=== PATIENT | female | born 1965 | race Caucasian/White ===

== ENCOUNTER 2021-06-21 08:17 | Outpatient (REF) | payer BC, SELFPAY ==
--- NOTE | ~2021-06-21 | XR_ITS ---
EXAMINATION: BILATERAL KNEE X-RAY CLINICAL INFORMATION: Knee pain COMPARISON: None TECHNIQUE: Standing AP, lateral and sunrise views of both knees FINDINGS: Right: Bone alignment is normal. No fracture or dislocation is seen. There is joint space narrowing at the medial femoral tibial joint. Joint spaces are otherwise normal. There is a small to moderate joint effusion. Left knee: Bone alignment is normal. No fracture or dislocation is seen. There is arthritis at the medial femoral tibial and patellofemoral joints with joint space narrowing and osteophyte formation. There is a small to moderate joint effusion. XR/XR knee RT 2V IMPRESSION: Bilateral arthritis and joint effusion.
--- NOTE | ~2021-06-21 | XR_ITS ---
EXAMINATION: BILATERAL KNEE X-RAY CLINICAL INFORMATION: Knee pain COMPARISON: None TECHNIQUE: Standing AP, lateral and sunrise views of both knees FINDINGS: Right: Bone alignment is normal. No fracture or dislocation is seen. There is joint space narrowing at the medial femoral tibial joint. Joint spaces are otherwise normal. There is a small to moderate joint effusion. Left knee: Bone alignment is normal. No fracture or dislocation is seen. There is arthritis at the medial femoral tibial and patellofemoral joints with joint space narrowing and osteophyte formation. There is a small to moderate joint effusion. XR/XR knee LT 2V IMPRESSION: Bilateral arthritis and joint effusion.
--- NOTE | ~2021-06-21 | XR_ITS ---
EXAMINATION: BILATERAL KNEE X-RAY CLINICAL INFORMATION: Knee pain COMPARISON: None TECHNIQUE: Standing AP, lateral and sunrise views of both knees FINDINGS: Right: Bone alignment is normal. No fracture or dislocation is seen. There is joint space narrowing at the medial femoral tibial joint. Joint spaces are otherwise normal. There is a small to moderate joint effusion. Left knee: Bone alignment is normal. No fracture or dislocation is seen. There is arthritis at the medial femoral tibial and patellofemoral joints with joint space narrowing and osteophyte formation. There is a small to moderate joint effusion. XR/XR knee standing BI IMPRESSION: Bilateral arthritis and joint effusion.
== END 2021-06-21 08:18 | disposition home or self-care (01) ==
LOC: HO.HOSX 08:17
PROVIDERS: Visit Provider Orthopaedic Surgery
DX: M17.0 Bilateral primary osteoarthritis of knee (principal)
CPT/HCPCS: 73560; 73565

== ENCOUNTER → 2021-07-09 08:05 | Outpatient (BNVA) | payer BC, SELFPAY | PROVIDERS: Visit Provider Orthopaedic Surgery | DX: Z01.812 Encounter for preprocedural laboratory examination (principal); Z01.810 Encounter for preprocedural cardiovascular examination ==

== ENCOUNTER → 2021-12-06 11:11 | Outpatient (BNVA) | payer BC, SELFPAY | PROVIDERS: PCP Internal Medicine; Visit Provider Physician Assistant | DX: Z01.818 Encounter for other preprocedural examination (principal); M17.11 Unilateral primary osteoarthritis, right knee | CPT/HCPCS: 99212 ==

== ENCOUNTER 2021-12-11 08:58 | Inpatient (IN) | payer BC, SELFPAY ==
[2021-11-27 12:19] VITALS: BP 131/83; PULSE 60; RESP 16; O2SAT 99; BMI 40.7
[2021-11-27 15:44] LABS: MRSA Nasal PCR NEGATIVE (Negative); SA Nasal PCR NEGATIVE (Negative)
--- NOTE | 2021-12-10 09:04 | HO.ANESPROP2 ---
Documented by User: Maryan Choi NP 12/10/21 09:20 HPI - Anesthesia Eval Consult details Narrative: 56yo F for Right Knee Replacement Total PCP cleared [facility] Active Problems Active Problems: All Active Problems (Updated 11/27/21 @ 14:06 by Fior Birch RN) Osteoarthritis of right knee (Acute) Past Medical History Medical History Anxiety Depression Environmental allergies Arron's disease History of blood transfusion Hypertension Insomnia CASANDRA on CPAP Paradoxical vocal cord motion Personal history of COVID-19 Surgical History Surgical History H/O partial thyroidectomy H/O Spinal surgery History of back surgery History of bilateral cataract extraction History of History of cholecystectomy History of hysterectomy, supracervical History of laryngoscopy History of sleeve gastrectomy Hx of colonoscopy Hx of tonsillectomy Social History Social History Are you a primary career services coordinator to a significant other at home: No Do you presently have visiting nurse or other home services: No Patient Tobacco Use Status: Never used Tobacco Current occupational status: employed Current occupation: disability claims Meds Allergies Allergy/AdvReac Type Severity Reaction Status Date / Time cephalexin [From Keflex] Allergy Intermediate Gastrointestinal Verified 12/06/21 11:27 Upset [place] And Derivatives Allergy Intermediate Shortness Verified 12/06/21 11:27 of Breath nut - unspecified Allergy Intermediate Swelling Verified 12/06/21 11:27 oxycodone [From Percocet] Allergy Intermediate Nausea and Verified 12/06/21 11:27 Vomiting Home Medications Medication Instructions Recorded Confirmed Last Taken Type amlodipine 5 mg tablet 1 tab PO DAILY 11/27/21 11/27/21 12/11/21 History biotin 5,000 mcg sublingual tablet 5,000 mcg SUBLINGUAL DAILY 11/27/21 11/27/21 Unknown History cetirizine 10 mg capsule (Zyrtec) 10 mg PO DAILY 11/27/21 11/27/21 Unknown History estradiol 1 mg tablet 1 tab PO DAILY 11/27/21 11/27/21 Unknown History hydrochlorothiazide 12.5 mg capsule 1 cap PO DAILY 11/27/21 11/27/21 Unknown History levothyroxine 112 mcg tablet 1 tab PO DAILY 11/27/21 11/27/21 Unknown History lisinopril 20 mg tablet 1 tab PO BID 11/27/21 11/27/21 Unknown History lorazepam 0.5 mg tablet 1 tab PO DAILY PRN 11/27/21 11/27/21 Unknown History melatonin 10 mg sublingual tablet 15 mg PO BEDTIME 11/27/21 11/27/21 Unknown History methylphenidate HCl 18 mg 18 mg PO DAILY 11/27/21 11/27/21 Unknown History tablet,extended release 24 hr triamcinolone acetonide 55 mcg 1 spray INTRANASAL DAILY 11/27/21 11/27/21 Unknown History nasal spray aerosol (Nasacort) Exam Exam Date and Time: December 10, 2021 0904 Height,Weight and Vital Signs: Height 5 ft Weight 94.665 kg Last Vital Signs Pulse 60 11/27/21 12:19 Resp 16 11/27/21 12:19 BP 131/83 11/27/21 12:19 Pulse Ox 99 11/27/21 12:19 Pertinent Lab Results Pertinent Lab Results: Laboratory Tests 11/27/21 11/27/21 12:30 13:20 Nasal Screen MRSA (PCR) NEGATIVE Nasal S. aureus Screen NEGATIVE Nasal MRSA/S.aureus Interp SEE NOTE Blood Type O Positive Antibody Screen POSITIVE Antibody Identification Anti-Fya Antigen Identification Fya Antigen - NEGATIVE Crossmatch (AHG) See Detail CBC and BMP done at outside facility 11/16/21 = WNL Narrative Narrative: EKG 11/2021 NSR@65 Assessment and Plan Assessment Anesthesia Assessment: Chart Reviewed Documented by User: Lowell Diallo MD 12/11/21 12:38 [facility] Past Medical History Medical History Anxiety Depression Environmental allergies Arron's disease History of blood transfusion Hypertension Insomnia CASANDRA on CPAP Paradoxical vocal cord motion Personal history of COVID-19 Family History Family history of problems with anesthesia: No Surgical History Surgical History H/O partial thyroidectomy H/O Spinal surgery History of back surgery History of bilateral cataract extraction History of History of cholecystectomy History of hysterectomy, supracervical History of laryngoscopy History of sleeve gastrectomy Hx of colonoscopy Hx of tonsillectomy History of Problems with Anesthesia: No Social History Social History Are you a primary career services coordinator to a significant other at home: No Do you presently have visiting nurse or other home services: No Patient Tobacco Use Status: Never used Tobacco Current occupational status: employed Current occupation: disability claims Meds Allergies Allergy/AdvReac Type Severity Reaction Status Date / Time cephalexin [From Keflex] Allergy Intermediate Gastrointestinal Verified 12/06/21 11:27 Upset [place] And Derivatives Allergy Intermediate Shortness Verified 12/06/21 11:27 of Breath nut - unspecified Allergy Intermediate Swelling Verified 12/06/21 11:27 oxycodone [From Percocet] Allergy Intermediate Nausea and Verified 12/06/21 11:27 Vomiting Home Medications Medication Instructions Recorded Confirmed Last Taken Type amlodipine 5 mg tablet 1 tab PO DAILY 11/27/21 11/27/21 12/11/21 History biotin 5,000 mcg sublingual tablet 5,000 mcg SUBLINGUAL DAILY 11/27/21 11/27/21 Unknown History cetirizine 10 mg capsule (Zyrtec) 10 mg PO DAILY 11/27/21 11/27/21 Unknown History estradiol 1 mg tablet 1 tab PO DAILY 11/27/21 11/27/21 Unknown History hydrochlorothiazide 12.5 mg capsule 1 cap PO DAILY 11/27/21 11/27/21 Unknown History levothyroxine 112 mcg tablet 1 tab PO DAILY 11/27/21 11/27/21 Unknown History lisinopril 20 mg tablet 1 tab PO BID 11/27/21 11/27/21 Unknown History lorazepam 0.5 mg tablet 1 tab PO DAILY PRN 11/27/21 11/27/21 Unknown History melatonin 10 mg sublingual tablet 15 mg PO BEDTIME 11/27/21 11/27/21 Unknown History methylphenidate HCl 18 mg 18 mg PO DAILY 11/27/21 11/27/21 Unknown History tablet,extended release 24 hr triamcinolone acetonide 55 mcg 1 spray INTRANASAL DAILY 11/27/21 11/27/21 Unknown History nasal spray aerosol (Nasacort) Assessment and Plan Assessment Anesthesia Assessment: Anesthesia Plan Discussed Final Anesthetic Review Family History of Problems with Anesthesia: No History of Problems with Anesthesia: No NPO: Yes ASA Class: III Final Preanesthetic Review: No Changes in Pt Med Stat, Meds/Allgs Chart Reviewed, Consent Obtained/Reviewed and Anes Risks/Benef Reviewed Patient Risk: Intermediate Procedure Risk: Intermediate Anesthetic Plan Anesthetic Plan: MAC:, Spinal and Regional Block Disposition: Standard PACU
[2021-12-11] VITALS (15 sets, daily range): BP systolic 95–139; BP diastolic 60–84; PULSE 48–79; RESP 12–20; TEMP 36.1–36.9; O2SAT 94–100
--- NOTE | ~2021-12-11 | XR_ITS ---
EXAMINATION: XR KNEE, RIGHT CLINICAL INFORMATION: Right knee replacement COMPARISON: Previous x-ray June 2021 TECHNIQUE: 2 views of the right knee. FINDINGS: There is a new 3 component right knee replacement in satisfactory position. No fracture or dislocation is seen. There are postoperative changes to the soft tissues. XR/XR knee RT 2V IMPRESSION: Satisfactory appearance of right knee replacement.
[2021-12-11 09:39] LABS: COVID-19 Test Negative (Negative)
[2021-12-11] MEDS: Lactated Ringers 1,000 ML 100 ML IVCONT ×2 (10:01→14:50)
--- NOTE | 2021-12-11 10:44 | P.HPSUR_ITS ---
Pre-Procedural Eval Section A Date of Service: 12/11/21 The patient is an INPATIENT: No Changes since office visit: Yes Patient answered all questions; No Cold of Flu in the past 2 weeks, No New Medical Problems and No Changes in Medication The History & Physical has been completed within 30 days and I have reviewed it.: Yes Section B Chief Complaint: RT TKA Allergies: Allergies Allergy/AdvReac Type Severity Reaction Status Date / Time cephalexin [From Keflex] Allergy Intermediate Gastrointestinal Verified 12/06/21 11:27 Upset [place] And Derivatives Allergy Intermediate Shortness Verified 12/06/21 11:27 of Breath nut - unspecified Allergy Intermediate Swelling Verified 12/06/21 11:27 oxycodone [From Percocet] Allergy Intermediate Nausea and Verified 12/06/21 11:27 Vomiting Plan I have reviewed the history and physical and performed a pertinent physical examination on my patient. No changes have occurred unless specified.
--- NOTE | 2021-12-11 10:53 | PC.NURSE ---
nerve block initiated by dr ruff vss pt verbalized understanding
--- NOTE | 2021-12-11 13:19 | P.BOP_ITS ---
Brief Operative Note Date of Service: 12/11/21 Pre-op diagnosis: right knee OA Post-op diagnosis: same Procedure: Right TKA Implants: [place] triathalon press fir cruciate retaining Surgeon: Alexey Gagnon MD Anesthesia: regional and spinal Was an Box Truck Owner Operator used for this Procedure?: Yes Box Truck Owner Operator: Christa Kern Estimated blood loss (mL): 150 IV fluids (mL): 1,000 Pathology: other Condition: stable Disposition: PACU
[2021-12-11] MEDS: Ketorolac Tromethamine 30 MG/ML VIAL 15 MG IVPUSH (13:47)
[2021-12-11] MEDS: Acetaminophen 325 MG TABLET 975 MG PO (13:47)
[2021-12-11] MEDS: HYDROmorphone HCl 0.5 MG/0.5 ML SYRINGE 0.25 MG IVPUSH ×2 (14:22→14:27)
--- NOTE | 2021-12-11 15:25 | P.CONHOSP_ITS ---
History of Present Illness Data of Consult Service Date: 12/11/21 Requesting physician: Alexey Gagnon Primary Care Provider: Abelardo Pro MD HPI 56-year-old woman with history of hypertension, hypothyroidism, allergic rhinitis admitted by Orthopedic surgery and is status post right total knee arthroplasty. At this time patient is stable, minimal more pain, vital signs are stable. She is currently resting in bed. She has no complaints. Review of Systems Review of Systems: Denies any recent fever chills or decrease in appetite respiratory denies any shortness of breath coverage production cardiovascular denies chest gastrointestinal denies any dysphagia abdominal pain nausea vomiting or diarrhea genitourinary denies any dysuria frequency or hematuria musculoskeletal right knee pain neuropsych denies any weakness or seizures all other systems reviewed are negative [facility] Medical History Anxiety Depression Environmental allergies Arron's disease History of blood transfusion Hypertension Insomnia CASANDRA on CPAP Paradoxical vocal cord motion Personal history of COVID-19 Pertinent family history: no cardiac history Surgical History H/O partial thyroidectomy H/O Spinal surgery History of back surgery History of bilateral cataract extraction History of History of cholecystectomy History of hysterectomy, supracervical History of laryngoscopy History of sleeve gastrectomy Hx of colonoscopy Hx of tonsillectomy Social History Household Members: Spouse Housing: House Are you a primary child day care teacher to a significant other at home: No Do you presently have visiting nurse or other home services: No Patient Tobacco Use Status: Never used Tobacco Current occupational status: employed Current occupation: disability claims Meds Allergies Allergy/AdvReac Type Severity Reaction Status Date / Time cephalexin [From Keflex] Allergy Intermediate Gastrointestinal Verified 12/06/21 11:27 Upset [place] And Derivatives Allergy Intermediate Shortness Verified 12/06/21 11:27 of Breath nut - unspecified Allergy Intermediate Swelling Verified 12/06/21 11:27 oxycodone [From Percocet] Allergy Intermediate Nausea and Verified 12/06/21 11:27 Vomiting Active Medications: Current Medications Acetaminophen (Acetaminophen 325 Mg Tablet) 975 mg PO ONCE PRN PRN Reason: Pain, Mild (Pain Scale 1-3) Acetaminophen (Acetaminophen 325 Mg Tablet) 650 mg PO Q6H PRN PRN Reason: Pain, Mild (Pain Scale 1-3) Celecoxib (Celecoxib 200 Mg Capsule) 200 mg PO BID [facility] Docusate Sodium (Docusate Sodium 100 Mg Capsule) 100 mg PO BID [facility] Hydromorphone HCl (Hydromorphone Hcl 0.5 Mg/0.5 Ml Syringe) 0.25 mg IVPUSH Q5M PRN; Protocol PRN Reason: Pain, Severe (Pain Scale 7-10) Last Admin: 12/11/21 14:27 Dose: 0.25 mg Documented by: Hydromorphone HCl (Hydromorphone Hcl 1 Mg/Ml Syringe) 0.25 mg IVPUSH Q4H PRN; Protocol PRN Reason: Pain, Severe (Pain Scale 7-10) Lactated Ringer's (Lr) 1,000 mls @ 100 mls/hr IVCONT .Q10H [facility] Last Admin: 12/11/21 14:50 Dose: 100 mls/hr Documented by: Cefazolin Sodium/Dextrose (Ancef) 2 gm in 50 mls @ 100 mls/hr IV POSTOP [facility] Levothyroxine Sodium (Levothyroxine Sodium 112 Mcg Tablet) 112 mcg PO DAILY [facility] Loratadine (Loratadine 10 Mg Tablet) 10 mg PO DAILY [facility] Lorazepam (Lorazepam 0.5 Mg Tablet) 0.5 mg PO DAILY PRN PRN Reason: Insomnia Non-Formulary Medication (Methylphenidate Hcl) 18 mg PO DAILY [facility] Non-Formulary Medication (Melatonin) 15 mg PO BEDTIME [facility] Non-Formulary Medication (Biotin) 5,000 mcg SUBLINGUAL DAILY [facility] Ondansetron HCl (Ondansetron Hcl 4 Mg/2 Ml Vial) 4 mg IVPUSH ONCE PRN PRN Reason: Nausea and Vomiting Ondansetron HCl (Ondansetron Hcl 4 Mg/2 Ml Vial) 4 mg IVPUSH Q8H PRN PRN Reason: Nausea and Vomiting Oxycodone HCl (Oxycodone Hcl Immed Release 5 Mg Tablet) 5 mg PO Q4H PRN PRN Reason: Pain, Moderate (Pain Scale 4-6 Oxycodone HCl (Oxycodone Hcl Er 10 Mg Tab.Er.12h) 10 mg PO BID [facility] Sodium Chloride (0.9 % Sodium Chloride Flush 3 Ml Syringe) 3 ml IVFLUSH QSHIFT [facility] Home Medications Medication Instructions Recorded Confirmed Last Taken Type amlodipine 5 mg tablet 1 tab PO DAILY 11/27/21 11/27/21 12/11/21 History biotin 5,000 mcg sublingual tablet 5,000 mcg SUBLINGUAL DAILY 11/27/21 11/27/21 Unknown History cetirizine 10 mg capsule (Zyrtec) 10 mg PO DAILY 11/27/21 11/27/21 Unknown History estradiol 1 mg tablet 1 tab PO DAILY 11/27/21 11/27/21 Unknown History hydrochlorothiazide 12.5 mg capsule 1 cap PO DAILY 11/27/21 11/27/21 Unknown History levothyroxine 112 mcg tablet 1 tab PO DAILY 11/27/21 11/27/21 Unknown History lisinopril 20 mg tablet 1 tab PO BID 11/27/21 11/27/21 Unknown History lorazepam 0.5 mg tablet 1 tab PO DAILY PRN 11/27/21 11/27/21 Unknown History melatonin 10 mg sublingual tablet 15 mg PO BEDTIME 11/27/21 11/27/21 Unknown History methylphenidate HCl 18 mg 18 mg PO DAILY 11/27/21 11/27/21 Unknown History tablet,extended release 24 hr triamcinolone acetonide 55 mcg 1 spray INTRANASAL DAILY 11/27/21 11/27/21 Unknown History nasal spray aerosol (Nasacort) Physical Exam Vital Signs and Narrative: Vital Signs: Last Vital Signs Temp 97.0 F 12/11/21 13:17 Pulse 57 12/11/21 15:02 Resp 20 12/11/21 15:02 BP 130/77 12/11/21 15:02 Pulse Ox 100 12/11/21 15:02 BMI result Body Mass Index 40.7 Appearing in no acute distress head is normocephalic atraumatic eyes pupils are PERRLA sclera is anicteric mouth throat mucous membranes are intact and moist neck is supple no lymphadenopathy, no JVD noted lung sounds are clear to auscultation heart regular rate rhythm, clear S1, S2 positive bowel sounds, abdomen is soft, nontender neuro patient is alert x3, no focal deficits Results Labs Labs: Laboratory Results - last 24 hr 12/11/21 09:10 COVID-19 ([facility]) Negative COVID-19 Clin Com See Note Imaging Radiologist's Impressions: Impressions Knee X-Ray 12/11/21 13:50 IMPRESSION: Satisfactory appearance of right knee replacement. Assessment and Plan (1) Osteoarthritis of right knee: Status: Acute Plan 56-year-old woman admitted by Orthopedic surgery and is status post right total knee arthroplasty Right total knee arthroplasty Management as per surgical team Pain management Hypertension. Stable blood pressure Hold blood pressure medications avoid postoperative hypotension Continue appropriate Hypothyroidism Continue levothyroxine DVT prophylaxis as per surgical team Attending Dr. Jasso
--- NOTE | 2021-12-11 15:35 | W.PM.OPN ---
Operative Note Operative Note Date of Service: 12/11/21 Narrative: Pre-op diagnosis: right knee OA Post-op diagnosis: same Procedure: Right TKA Implants: [place] triathalon press fir cruciate retaining a Surgeon: Alexey Gagnon MD Anesthesia: regional and spinal Was an Compressor Operator Adjuster used for this Procedure?: Yes Compressor Operator Adjuster: Christa Kern Estimated blood loss (mL): 150 IV fluids (mL): 1,000 Pathology: other Condition: stable Disposition: PACU Procedure in detail: The patient was brought to the operating room and prepped and draped in standard sterile fashion. A time-out was called to identify proper site proper procedure proper surgeon and IV antibiotics were administered. 1 g of IV tranexamic acid was administered. I began by making a midline incision to the retinaculum and performed a medial parapatellar arthrotomy. The patella was translated laterally and the knee was flexed up. There was medial compartment wear.. I performed a small medial peel and resected the infrapatellar fat pad. [place]'s line was then used to drill my intramedullary femoral guide and my distal femur cut of 10 mm was made in 5 degrees of valgus while protecting the soft tissues. I then measured a # 2 femur and placed my cutting guide and made my anterior posterior and chamfer cuts protecting the soft tissues at all times. Once I was satisfied with my cuts I turned my attention to the tibia. I removed the meniscus medially and laterally and , using an external cutting guide, in line with the tibial crest and the third ray, I made my distal tibial cut in 3 deg slope of while protecting the PCL the posterior soft tissues at all times. An extension block was used to confirm appropriate amount of bony resection. I then sized a #3 tibia and once I was satisfied that there was complete tibial coverage I placed my trial and with the trial femur in place took the knee through range of motion. I was satisfied with the extension and flexion as well as the stability at 0, 30 and 90 degrees. The knee was balanced. I then turned my attention to the patella where I removed 1 cm from the undersurface of the patella and then trialed a 32a patellar button. Again the knee was taken through range of motion I was satisfied with the tracking. I then returned to the femur and drilled my femoral lug holes and prepared the tibia. A femoral bone plug was placed and the knee was irrigated copiously. I then press fit the patella, tibia and femur in standard fashion. I trialed different inserts until I selected a #9 insert. The final insert was placed and a 3 minutes iodine soak with local TXA was performed. The knee was then closed with a running Quill suture, a 3 0 Vicryl and omero on the skin. Patient was then placed in sterile dressing and brought to recovery room in stable condition there were no known complications.
[2021-12-11] MEDS: ceFAZolin Sodium/Dextrose,Iso 2 GM/50 ML PIGGYBACK IV (18:10)
[2021-12-11] MEDS: HYDROmorphone HCl 1 MG/ML SYRINGE 0.25 MG IVPUSH (18:40)
[2021-12-11] MEDS: LORazepam 0.5 MG TABLET PO (20:26)
[2021-12-11] MEDS: Celecoxib 200 MG CAPSULE PO (20:26)
[2021-12-11] MEDS: oxyCODONE HCl Immed Release 5 MG TABLET PO (20:26)
[2021-12-11] MEDS: Acetaminophen 325 MG TABLET 650 MG PO (20:26)
[2021-12-11] MEDS: oxyCODONE HCl ER 10 MG TAB.ER.12H PO (20:27)
[2021-12-11] MEDS: Melatonin 3 MG TABLET 15 MG PO (20:27)
[2021-12-11] MEDS: Docusate Sodium 100 MG CAPSULE PO (20:27)
[2021-12-12] VITALS (9 sets, daily range): BP systolic 120–140; BP diastolic 66–82; PULSE 65–80; RESP 17–18; TEMP 36.6–37.7; O2SAT 94–98
[2021-12-12] MEDS: Lactated Ringers 1,000 ML 100 ML IVCONT ×2 (00:10→14:07)
[2021-12-12] MEDS: HYDROmorphone HCl 1 MG/ML SYRINGE 0.25 MG IVPUSH ×2 (00:10→21:50)
[2021-12-12] MEDS: Levothyroxine Sodium 112 MCG TABLET PO (05:45)
[2021-12-12] MEDS: Acetaminophen 325 MG TABLET 650 MG PO (06:12)
[2021-12-12] MEDS: oxyCODONE HCl Immed Release 5 MG TABLET PO ×2 (06:12→11:40)
[2021-12-12 06:24] LABS: MANUAL DIFF FLAG NO
[2021-12-12 06:30] LABS: Basophils Percent Auto 0.1 % (0-2); Hematocrit 38.6 % (37.0-47.0); Hemoglobin 13.2 g/dl (12.0-16.0); Imm Gran Pct Auto 0.6 % (0.0-0.4); Lymphocytes Absolute Auto 1.1 X10*3/uL (1.2-4.9); Lymphocytes Percent Auto 6.4 % (20-40); Mean Corpuscular HGB Conc 34.2 g/dl (31.0-35.0); Mean Corpuscular Hemoglobin 30.3 pg (27.0-33.0); Mean Corpuscular Volume 88.7 fL (80.0-98.0); Mean Platelet Volume 11.3 fL (9.4-12.3); Monocytes Absolute Auto 1.1 X10*3/uL (0.1-1.2); Monocytes Percent Auto 6.1 % (2-11); Neutrophils Absolute Auto 15.4 x10*3/uL (2.0-8.3); Neutrophils Percent Auto 86.8 % (45-73); Platelet Count 305 X10*3/uL (160-400); Red Blood Count 4.35 X10*6/uL (4.20-5.50); Red Cell Distribution Width 12.2 % (11.0-16.0); White Blood Count 17.7 X10*3/uL (4.8-10.8)
[2021-12-12 06:50] LABS: Anion Gap 12 (12-20); Blood Urea Nitrogen 23 mg/dL (9-16); Calcium 9.2 mg/dL (8.4-10.2); Carbon Dioxide 22 mmol/L (22-29); Chloride 106 mmol/L (96-108); Creatinine Clr Calc Pharmacy 82.8; Estimated Glomerular Filt Rate > 60; Glucose Fasting 109 mg/dL (60-99); Potassium 4.2 mmol/L (3.3-5.1); Sodium 136 mmol/L (135-145)
--- NOTE | 2021-12-12 07:34 | PM.PNORT ---
Subjective Subjective Date of Service: 12/12/21 Interval history: POD1 s/p RTKA. Patient is up walking with PT. No overnight events. Pain is well managed. No additional complaints. Pain 0/10 Physical Exam Vital Signs: Vital Signs: Last Vital Signs Temp 98 F 12/12/21 04:00 Pulse 72 12/12/21 04:00 Resp 18 12/12/21 04:00 BP 124/72 12/12/21 04:00 Pulse Ox 96 12/12/21 04:00 BMI result Body Mass Index 40.7 Const: General: cooperative, healthy appearing and no acute distress Resp: Effort & Inspection: normal respiratory effort and able to speak in complete sentences Cardio: Rate: regular rate Peripheral pulses: Peripheral pulses 2+ throughout GI: Palpation (GI): Soft to palpation Skin: Lesions: no lesions Rashes: no rashes Extrem: Other: Right knee Aquacel is clean, dry, and intact. NVI. Walking with P.T. Procedures Date of Service Date of Service: 12/12/21 Progress Note: A&P Assessment and plan (1) Status post total right knee replacement: Status: Acute Assessment and Plan: Continue pain mgmnt Begin ASA for dvt ppx begin PT for RTKA Dispo planning-Pending PT eval, pain mgmnt Fall Risk Details Current Medications: Current Medications Acetaminophen (Acetaminophen 325 Mg Tablet) 975 mg PO ONCE PRN PRN Reason: Pain, Mild (Pain Scale 1-3) Acetaminophen (Acetaminophen 325 Mg Tablet) 650 mg PO Q6H PRN PRN Reason: Pain, Mild (Pain Scale 1-3) Last Admin: 12/12/21 06:12 Dose: 650 mg Documented by: Aspirin (Aspirin 325 Mg Tablet) 325 mg PO BID [facility] Celecoxib (Celecoxib 200 Mg Capsule) 200 mg PO BID [facility] Last Admin: 12/11/21 20:26 Dose: 200 mg Documented by: Docusate Sodium (Docusate Sodium 100 Mg Capsule) 100 mg PO BID [facility] Last Admin: 12/11/21 20:27 Dose: 100 mg Documented by: Hydromorphone HCl (Hydromorphone Hcl 0.5 Mg/0.5 Ml Syringe) 0.25 mg IVPUSH Q5M PRN; Protocol PRN Reason: Pain, Severe (Pain Scale 7-10) Last Admin: 12/11/21 14:27 Dose: 0.25 mg Documented by: Hydromorphone HCl (Hydromorphone Hcl 1 Mg/Ml Syringe) 0.25 mg IVPUSH Q4H PRN; Protocol PRN Reason: Pain, Severe (Pain Scale 7-10) Last Admin: 12/12/21 00:10 Dose: 0.25 mg Documented by: Lactated Ringer's (Lr) 1,000 mls @ 100 mls/hr IVCONT .Q10H [facility] Last Admin: 12/12/21 00:10 Dose: 100 mls/hr Documented by: Levothyroxine Sodium (Levothyroxine Sodium 112 Mcg Tablet) 112 mcg PO DAILY@0600 [facility] Last Admin: 12/12/21 05:45 Dose: 112 mcg Documented by: Loratadine (Loratadine 10 Mg Tablet) 10 mg PO DAILY [facility] Lorazepam (Lorazepam 0.5 Mg Tablet) 0.5 mg PO DAILY PRN PRN Reason: Insomnia Last Admin: 12/11/21 20:26 Dose: 0.5 mg Documented by: Melatonin (Melatonin 3 Mg Tablet) 15 mg PO BEDTIME [facility] Last Admin: 12/11/21 20:27 Dose: 15 mg Documented by: Non-Formulary Medication (Methylphenidate Hcl) 18 mg PO DAILY [facility] Ondansetron HCl (Ondansetron Hcl 4 Mg/2 Ml Vial) 4 mg IVPUSH ONCE PRN PRN Reason: Nausea and Vomiting Ondansetron HCl (Ondansetron Hcl 4 Mg/2 Ml Vial) 4 mg IVPUSH Q8H PRN PRN Reason: Nausea and Vomiting Oxycodone HCl (Oxycodone Hcl Immed Release 5 Mg Tablet) 5 mg PO Q4H PRN PRN Reason: Pain, Moderate (Pain Scale 4-6 Last Admin: 12/12/21 06:12 Dose: 5 mg Documented by: Oxycodone HCl (Oxycodone Hcl Er 10 Mg Tab.Er.12h) 10 mg PO BID [facility] Last Admin: 12/11/21 20:27 Dose: 10 mg Documented by: Sodium Chloride (0.9 % Sodium Chloride Flush 3 Ml Syringe) 3 ml IVFLUSH QSHIFT [facility] Last Admin: 12/11/21 21:41 Dose: Not Given Documented by: Time Spent With Patient Time: Total time spent is greater than 50% in coordination of care (as documented) at patient's floor/unit and/or counseling patient: Quality Stroke Does the patient have a stroke diagnosis?: No VTE Prior VTE?: No VTE Risk Level:: Medical - moderate - high VTE Device Contraindication: N/A - Device Ordered VTE Drug Contraindication: N/A - Med Ordered
--- NOTE | 2021-12-12 08:37 | P.CDIC_ITS ---
CDI Concurrent Query Documentation Clarification: PHYSICIAN'S DOCUMENTATION REQUEST Date of Query: 12/12/21 0837 Patient Name: Essie Jones Admit Date: 12/11/21 Dear Doctor, A review of the medical record indicates additional documentation may be needed. Please review below and update the documentation accordingly. Clinical Indicators: Height: [] 5 FT Weight: [] 94.665 kg BMI: [] 40.8 Other Clinical Notes Supporting Significance of the BMI: Risk Factors/Clinical Indicators/Treatments If possible, please provide an associated diagnosis related to the abnormal BMI, such as: For a BMI >= 40: * Overweight * Obesity * Due to excess calories * Drug induced * Due to other cause * Severe or Morbid Obesity * With alveolar hypoventilation * Without alveolar hypoventilation Or: * BMI is not significant * Other (please specify) * Unable to determine Use of terms such as suspected, likely, concern for, or probable (associated with a specific diagnosis that is being evaluated, monitored, or treated as if it exists) are acceptable and can be coded in the inpatient setting, when documented at the time of discharge. Thank you, Meaghan Connelly RN Extension: [phone] Please use your independent medical judgment in providing your response. THIS QUERY IS PART OF THE PERMANENT MEDICAL RECORD Provider Response: Obesity
--- NOTE | 2021-12-12 09:34 | MHC.CM.PN ---
CM met with Patient at bedside; Patient lives in a house with her and she was functionally independent and working [employer]. Home with new [facility] is the goal and CM has initiated and will follow for dc planning.Patient has received Pfizer vax X3 and PCP is Dr. Abelardo Pro.
--- NOTE | 2021-12-12 10:10 | P.PNIM_ITS ---
Subjective Subjective Date of Service: 12/12/21 Review of Systems Follow up consultation RTKA Sitting up in a chair Physical Exam Vital Signs: Vital Signs: Last Vital Signs Temp 97.9 F 12/12/21 08:00 Pulse 75 12/12/21 08:00 Resp 18 12/12/21 08:00 BP 120/68 12/12/21 08:00 Pulse Ox 95 12/12/21 08:00 BMI result Body Mass Index 40.7 Appearing in no acute distress lung sounds are clear to auscultation heart regular rate rhythm, clear S1, S2 positive bowel sounds, abdomen is soft, nontender neuro patient is alert x3, no focal deficits Right knee dressing intact Objective Data Active Medications Acetaminophen (Acetaminophen 325 Mg Tablet) 975 mg PO ONCE PRN PRN Reason: Pain, Mild (Pain Scale 1-3) Acetaminophen (Acetaminophen 325 Mg Tablet) 650 mg PO Q6H PRN PRN Reason: Pain, Mild (Pain Scale 1-3) Last Admin: 12/12/21 06:12 Dose: 650 mg Documented by: NITA Aspirin (Aspirin 325 Mg Tablet) 325 mg PO BID [facility] Celecoxib (Celecoxib 200 Mg Capsule) 200 mg PO BID [facility] Last Admin: 12/11/21 20:26 Dose: 200 mg Documented by: NITA Docusate Sodium (Docusate Sodium 100 Mg Capsule) 100 mg PO BID [facility] Last Admin: 12/11/21 20:27 Dose: 100 mg Documented by: NITA Hydromorphone HCl (Hydromorphone Hcl 0.5 Mg/0.5 Ml Syringe) 0.25 mg IVPUSH Q5M PRN; Protocol PRN Reason: Pain, Severe (Pain Scale 7-10) Last Admin: 12/11/21 14:27 Dose: 0.25 mg Documented by: THERESE Hydromorphone HCl (Hydromorphone Hcl 1 Mg/Ml Syringe) 0.25 mg IVPUSH Q4H PRN; Protocol PRN Reason: Pain, Severe (Pain Scale 7-10) Last Admin: 12/12/21 00:10 Dose: 0.25 mg Documented by: NITA Lactated Ringer's (Lr) 1,000 mls @ 100 mls/hr IVCONT .Q10H [facility] Last Admin: 12/12/21 00:10 Dose: 100 mls/hr Documented by: NITA Levothyroxine Sodium (Levothyroxine Sodium 112 Mcg Tablet) 112 mcg PO DAILY@0600 [facility] Last Admin: 12/12/21 05:45 Dose: 112 mcg Documented by: NITA Loratadine (Loratadine 10 Mg Tablet) 10 mg PO DAILY [facility] Lorazepam (Lorazepam 0.5 Mg Tablet) 0.5 mg PO DAILY PRN PRN Reason: Insomnia Last Admin: 12/11/21 20:26 Dose: 0.5 mg Documented by: NITA Melatonin (Melatonin 3 Mg Tablet) 15 mg PO BEDTIME [facility] Last Admin: 12/11/21 20:27 Dose: 15 mg Documented by: NITA Non-Formulary Medication (Methylphenidate Hcl) 18 mg PO DAILY [facility] Ondansetron HCl (Ondansetron Hcl 4 Mg/2 Ml Vial) 4 mg IVPUSH ONCE PRN PRN Reason: Nausea and Vomiting Ondansetron HCl (Ondansetron Hcl 4 Mg/2 Ml Vial) 4 mg IVPUSH Q8H PRN PRN Reason: Nausea and Vomiting Oxycodone HCl (Oxycodone Hcl Immed Release 5 Mg Tablet) 5 mg PO Q4H PRN PRN Reason: Pain, Moderate (Pain Scale 4-6 Last Admin: 12/12/21 06:12 Dose: 5 mg Documented by: NITA Oxycodone HCl (Oxycodone Hcl Er 10 Mg Tab.Er.12h) 10 mg PO BID [facility] Last Admin: 12/11/21 20:27 Dose: 10 mg Documented by: NITA Sodium Chloride (0.9 % Sodium Chloride Flush 3 Ml Syringe) 3 ml IVFLUSH QSHIFT [facility] Last Admin: 12/11/21 21:41 Dose: Not Given Documented by: NITA Non-Admin Reason: IV Running Labs CBC & Chem 7: 12/12/21 05:52 12/12/21 05:52 Labs: Laboratory Results - last 24 hr 12/12/21 12/12/21 05:52 05:52 MCV 88.7 MCH 30.3 MCHC 34.2 RDW 12.2 Plt Count 305 MPV 11.3 Immature Gran % (Auto) 0.6 H Neut % (Auto) 86.8 H Lymph % (Auto) 6.4 L [place] % (Auto) 6.1 Eos % (Auto) 0.0 Baso % (Auto) 0.1 Lymph # (Auto) 1.1 L [place] # (Auto) 1.1 Eos # (Auto) 0.0 Baso # (Auto) 0.0 Abs Immat Gran (auto) 0.10 H Absolute Neuts (auto) 15.4 H Absolute Nucleated RBC 0.000 Nucleated RBC % (auto) 0.0 Anion Gap 12 Estim Creat Clear Calc 82.8 Estimated GFR > 60 Fasting Glucose 109 H Calcium 9.2 Assessment and Plan (1) Status post total right knee replacement: Status: Acute Plan 56-year-old woman admitted by Orthopedic surgery and is status post right total knee arthroplasty Right total knee arthroplasty Management as per surgical team Pain management Hypertension.? Stable blood pressure Hold blood pressure medications avoid postoperative hypotension Continue appropriate Hypothyroidism Continue levothyroxine Morbid obesity. BMI 40.8 Discussed the importance of weight management DVT prophylaxis as per surgical team Attending Dr. Roy Quality Stroke Does the patient have a stroke diagnosis?: No VTE Prior VTE?: No VTE Risk Level:: Medical - moderate - high VTE Device Contraindication: N/A - Device Ordered VTE Drug Contraindication: N/A - Med Ordered
[2021-12-12] MEDS: oxyCODONE HCl ER 10 MG TAB.ER.12H PO ×2 (10:24→21:45)
[2021-12-12] MEDS: Loratadine 10 MG TABLET PO (10:26)
[2021-12-12] MEDS: Celecoxib 200 MG CAPSULE PO ×2 (10:26→20:50)
[2021-12-12] MEDS: Docusate Sodium 100 MG CAPSULE PO ×2 (10:26→20:50)
[2021-12-12] MEDS: Aspirin 325 MG TABLET PO ×2 (11:37→20:49)
--- NOTE | 2021-12-12 12:55 | HO.POSTANES ---
Post Anesthesia Evaluation Post Anesthesia Evaluation Vital Signs: Vital Signs Temp Pulse Resp BP Pulse Ox 12/12/21 11:25 99.8 F 76 17 132/66 98 12/12/21 08:00 97.9 F 75 18 120/68 95 12/12/21 07:51 72 124/72 96 12/12/21 04:00 98 F 72 18 124/72 96 Anesthesia: Spinal Mental Status: Awake Pain Control: Satisfactory Nausea/Vomiting: None Hydration: Adequate Anesthesia-Related Issues: No Anes. Related Issues Comments: no knee pain, but some in the qudriceps area with some weakness
[2021-12-12] MEDS: Melatonin 3 MG TABLET 15 MG PO (20:50)
[2021-12-13] VITALS: BP 126/66; PULSE 76; RESP 17; TEMP 36.2; O2SAT 95
[2021-12-13] MEDS: Lactated Ringers 1,000 ML 100 ML IVCONT (02:29)
[2021-12-13] MEDS: HYDROmorphone HCl 1 MG/ML SYRINGE 0.25 MG IVPUSH (02:29)
[2021-12-13 04:00] VITALS: BP 114/66; PULSE 70; RESP 18; TEMP 36.2; O2SAT 98
[2021-12-13] MEDS: Levothyroxine Sodium 112 MCG TABLET PO (06:02)
[2021-12-13 06:30] LABS: MANUAL DIFF FLAG NO
[2021-12-13 06:47] LABS: Basophils Percent Auto 0.2 % (0-2); Eosinophils Absolute Auto 0.3 X10*3/uL (0.0-0.4); Eosinophils Percent Auto 2.6 % (0-4); Hematocrit 35.6 % (37.0-47.0); Hemoglobin 11.9 g/dl (12.0-16.0); Imm Gran Abs Auto 0.05 X10*3/uL (0.00-0.03); Imm Gran Pct Auto 0.5 % (0.0-0.4); Lymphocytes Absolute Auto 2.8 X10*3/uL (1.2-4.9); Lymphocytes Percent Auto 26.1 % (20-40); Mean Corpuscular HGB Conc 33.4 g/dl (31.0-35.0); Mean Corpuscular Hemoglobin 30.4 pg (27.0-33.0); Mean Corpuscular Volume 90.8 fL (80.0-98.0); Mean Platelet Volume 11.2 fL (9.4-12.3); Monocytes Absolute Auto 1.1 X10*3/uL (0.1-1.2); Monocytes Percent Auto 10.5 % (2-11); Neutrophils Absolute Auto 6.4 x10*3/uL (2.0-8.3); Neutrophils Percent Auto 60.1 % (45-73); Platelet Count 263 X10*3/uL (160-400); Red Blood Count 3.92 X10*6/uL (4.20-5.50); White Blood Count 10.6 X10*3/uL (4.8-10.8)
[2021-12-13 06:50] LABS: Anion Gap 10 (12-20); Blood Urea Nitrogen 18 mg/dL (9-16); Calcium 8.4 mg/dL (8.4-10.2); Carbon Dioxide 27 mmol/L (22-29); Chloride 107 mmol/L (96-108); Estimated Glomerular Filt Rate > 60; Glucose Fasting 90 mg/dL (60-99); Potassium 3.8 mmol/L (3.3-5.1); Sodium 140 mmol/L (135-145)
[2021-12-13 07:46] VITALS: BP 130/77; PULSE 69; RESP 20; TEMP 37.1; O2SAT 97
--- NOTE | 2021-12-13 08:28 | MHC.CM.PN ---
Patient has been medically cleared for dc to home today with services.A referral has been made to [facility], who has been made aware of today's dc.
[2021-12-13] MEDS: Aspirin 325 MG TABLET PO (08:49)
[2021-12-13] MEDS: Celecoxib 200 MG CAPSULE PO (08:50)
[2021-12-13] MEDS: Docusate Sodium 100 MG CAPSULE PO (08:50)
[2021-12-13] MEDS: Acetaminophen 325 MG TABLET 650 MG PO (08:50)
[2021-12-13] MEDS: oxyCODONE HCl ER 10 MG TAB.ER.12H PO (08:50)
[2021-12-13] MEDS: oxyCODONE HCl Immed Release 5 MG TABLET PO (08:50)
[2021-12-13] MEDS: Loratadine 10 MG TABLET PO (08:50)
[2021-12-13] MEDS: 0.9 % Sodium Chloride Flush 3 ML SYRINGE IVFLUSH (08:52)
--- NOTE | 2021-12-13 08:58 | PM.DS ---
DS: Providers Provider Date of Service: 12/13/21 Date of admission: 12/11/21 08:58 Primary care physician: Abelardo Pro MD Consults: 12/11/21 15:20 Consult to Hospitalist Routine Consulting Provider: Hospitalist Reason For Exam: HTN DS: Diagnosis Discharge Diagnosis (1) Status post total right knee replacement: Status: Acute DS: Summary Hospital Course Hospital Course: The patient underwent a successful right total knee arthroplasty, was transferred to PACU and then to the floor to recover. During their stay, their vitals were stable, afebrile at 98.8. Labs were unremarkable, H/H 11.9/35.6 . POD 1 she was started on ASA for DVT ppx, they also received PT services twice a day. Prior to discharge, their dressing was change, incision clean dry and intact, new Aquacel dressing applied and the plan was to be discharged home with VNA. Time Spent with Patient Time attestation: Total time spent providing and/or coordinating discharge services: Discharge coordination time: Less than 30 minutes Quality: Stroke Does the patient have a stroke diagnosis?: No Physical Exam Vital Signs: Vital Signs: Last Vital Signs Temp 98.8 F 12/13/21 07:46 Pulse 69 12/13/21 07:46 Resp 20 12/13/21 07:46 BP 130/77 12/13/21 07:46 Pulse Ox 97 12/13/21 07:46 BMI result Body Mass Index 40.7 DS: Data Data Completed and Pending Pending studies at discharge: Pending at discharge 12/11/21 12:46 Surgical [PTH] Routine Labs on day of discharge: Laboratory Results - last 24 hr 12/13/21 12/13/21 06:11 06:11 WBC 10.6 RBC 3.92 L Hgb 11.9 L Hct 35.6 L MCV 90.8 MCH 30.4 MCHC 33.4 RDW 13.0 Plt Count 263 MPV 11.2 Immature Gran % (Auto) 0.5 H Neut % (Auto) 60.1 Lymph % (Auto) 26.1 [place] % (Auto) 10.5 Eos % (Auto) 2.6 Baso % (Auto) 0.2 Lymph # (Auto) 2.8 [place] # (Auto) 1.1 Eos # (Auto) 0.3 Baso # (Auto) 0.0 Abs Immat Gran (auto) 0.05 H Absolute Neuts (auto) 6.4 Absolute Nucleated RBC 0.000 Nucleated RBC % (auto) 0.0 Sodium 140 Potassium 3.8 Chloride 107 Carbon Dioxide 27 Anion Gap 10 L BUN 18 H Creatinine 0.76 Estim Creat Clear Calc 85.0 Estimated GFR > 60 Fasting Glucose 90 Calcium 8.4 D Discharge Plan Discharge Patient Disposition: Home Health Service Discharge Diagnosis: RT TKA Referrals: Shanique ELLIOTT [Outside] - 1 Week Christa Kern PA-C [Physician Medical Doctor Md/Medical Director] - 2 Weeks (12/27/21 12:30 [facility] Christa Kern PA-C) Discharge Medications: New docusate sodium 100 mg Capsule 100 mg PO BID 14 Days Qty: 28 0RF oxycodone 5 mg Tablet 5 mg PO Q4H PRN (Reason: Pain, Moderate (Pain Scale 4-6) 7 Days Qty: 42 0RF acetaminophen 325 mg Tablet 650 mg PO Q6H PRN (Reason: Pain, Mild (Pain Scale 1-3)) 30 Days Qty: 240 0RF aspirin 325 mg Tablet 325 mg PO BID 42 Days Qty: 84 0RF Continued lisinopril 20 mg tablet 1 tab PO BID 0RF amlodipine 5 mg tablet 1 tab PO DAILY 0RF estradiol 1 mg tablet 1 tab PO DAILY 0RF triamcinolone acetonide [Nasacort] 55 mcg Aerosol,[place] 1 spray INTRANASAL DAILY 0RF Rx Instructions: administer into each nostril hydrochlorothiazide 12.5 mg capsule 1 cap PO DAILY 0RF levothyroxine 112 mcg tablet 1 tab PO DAILY 0RF Zyrtec 10 mg Capsule 10 mg PO DAILY 0RF melatonin 10 mg Tablet, Sublingual 15 mg PO BEDTIME 0RF biotin 5,000 mcg Tablet, Sublingual 5,000 mcg SUBLINGUAL DAILY 0RF lorazepam 0.5 mg tablet 1 tab PO DAILY PRN (Reason: Insomnia) 0RF methylphenidate HCl 18 mg Tablet Extended Release 24hr 18 mg PO DAILY 0RF Discharge Orders: Discharge Order (Routine); Ordered 12/13/21 Ordered By: Christa Kern Diet: regular diet Activity on Discharge: Use cane or walker Stand Alone Forms: Patient Portal Discharge page Care Plan Goals: Restore function of joint Health Concerns: None Plan of Treatment: Physical Therapy Pain management DVT prophylaxis Assessment: Physical Therapy for Total knee arthroplasty: WBAT, gait training, ROM 0-12, quad strength Limit stair climbing No showering, no tub bath-keep dressing clean, dry and intact No driving x6 weeks Continue Aspirin twice a day x 6 weeks Follow up with [facility] Orthopedics in 2 weeks: 12/27/21 @12:30 --you will also have your first out patient PT eval on the day of your post op appt-so please plan on being in the office that day for an extended period of time.
--- NOTE | 2021-12-13 08:59 | W.MHC.F2F ---
Service Date Service Date: 12/13/21 Encounter Date of encounter: 12/13/21 Reasons for Services Signs and symptoms assessed: right knee pain and swelling, difficulty with ambulation. Reason for physical therapy: home safety and mobility, therapeutic exercises, restore joint function, gait/transfer training, ADL training and energy conservation Reason for occupational therapy: home safety and mobility, therapeutic exercises, restore joint function, gait/transfer training, ADL training and energy conservation MD Overseeing Care: Alexey Gagnon Homebound: Leaving the home is medically contraindicated at this time without the asist of a device and/or another person due th the listed conditions above and below. Reason homebound: unsteady gait / fall risk, pain with ambulation, poor balance / fall risk and unable to drive Homebound supporting statement: Pt. is considered home bound due to recent surgery. Unable to drive, poor balance, poor gait mechanics. Certification: Based on the above findings, I certify that this patient is confined to the home and needs physical therapy and/or speech therapy, or continues to need occupational therapy. The patient is under my care, and I have initiated the establishment of the plan of care. The patient will be followed by a physician who will periodically review the plan of care.
[2021-12-13 09:44] VITALS: BP 130/77; PULSE 69; O2SAT 97
== END 2021-12-13 11:10 | disposition home health service (06) | DRG 302 ==
LOC: HO.SSSA 09:21 → HO.S3 15:12
PROVIDERS: Physician Assistant; Admitting Provider Orthopaedic Surgery; PCP Internal Medicine; Visit Provider Orthopaedic Surgery
PROC: 0SRC0JA Replacement of Right Knee Joint with Synthetic Substitute, Uncemented, Open Approach (ICD-10-PCS; CPT 27447; principal; 2021-12-11 11:10)
DX: M17.11 Unilateral primary osteoarthritis, right knee (principal); Z68.41 Body mass index [BMI] 40.0-44.9, adult; I10 Essential (primary) hypertension; E06.3 Autoimmune thyroiditis; E66.01 Morbid (severe) obesity due to excess calories; G47.33 Obstructive sleep apnea (adult) (pediatric); Z20.822 Contact with and (suspected) exposure to COVID-19; Z99.89 Dependence on other enabling machines and devices; Z86.16 Personal history of COVID-19; Z88.5 Allergy status to narcotic agent; Z79.890 Hormone replacement therapy; Z79.899 Other long term (current) drug therapy
CPT/HCPCS: 36415; 73560; 80048; 85025; 86850; 86870; 86885; 86900; 86901; 86902; 86905; 86920; 86922; 87635; 87640; 87641; 88305; 88311; 97110; 97116; 97162; C1776; J0690; J1100; J1170; J1885; J2250

== ENCOUNTER → 2021-12-27 12:23 | Outpatient (BNVA) | payer BC, SELFPAY | PROVIDERS: PCP Internal Medicine; Visit Provider Physician Assistant | DX: Z13.89 Encounter for screening for other disorder (principal) ==

== ENCOUNTER → 2022-01-24 13:11 | Outpatient (BNVA) | payer BC, SELFPAY | PROVIDERS: PCP Internal Medicine; Visit Provider Physician Assistant | DX: Z13.89 Encounter for screening for other disorder (principal) ==

== ENCOUNTER 2022-02-22 13:00 | Outpatient (RCR) | payer BC, SELFPAY ==
--- NOTE | 2021-12-27 13:36 | MHC.PT.EP ---
[facility] [place] Office [place] Office [place] Office [address] [phone] F: [phone] F: [phone] F: [phone] F: [phone] Physical Therapy Plan of Care Date of Evaluation: Date of Surgery: 12/11/21 Diagnosis: S/P RIGHT TKA Assessment: 56 YO FEMALE REF TO PT S/P Rt TKA 12/11/21 . Pt resides w her . Upon exam, impairments include decreased Rt KNEE ROM and strength,altered gait pattern, and increased knee pain. Functional limitations include decreased ability to perform walking, static standing and sleeping comfortably. She reports decreased tolerance to homemaking tasks and she is currently not driving. . Pt IS A VERY GOOD PT CANDIDATE TO GUIDE HER IN HER Rt TKA POST-OP COURSE, ADDRESSING THE ABOVE FINDINGS, PAIN MGMT, AND MAXIMIZING FUNCTIONAL INDEPENDENCE. Frequency and Duration: The patient will be seen 2 X wk X 5 wks Short Term Goals: Pt DEMON PROPER QUAD SET IN 1 WK Pt'S KNEE PAIN DECREASED TO 2-3/10 IN 2 WKS Pt DEMON WFL AROM HIP EXT AND ANKLE DF/PF AND AROM KNEE 0* TO 120* IN 3 WKS Pt DEMO IMPROVED GAIT MECH W LEAST RESTRICTIVE AD ON LEVEL GROUND AND STAIRS IN 2 WKS Pt INDEP W SCAR MOBILITY RIGHT ANT KNEE IN 3 WKS Custodial Goals: Pt INDEP W HEP PROGRESSION AND SELF-SX MGMT STRATEGIES IN 5 WKS Pt RESUME REG ADLs EVIDENT W IMPROVED LEFI SCORE BY 8-10 POINTS (AT EVAL 25/80 ) IN 5 WKS Pt INCR LE STRENGTH BY 1 GRADE IN 5 WKS Treatment Plan: Modalities to reduce pain, spasms and effusion. Manual therapy to restore motion and function. Therapeutic exercise to improve strength and flexibility. Neuromuscular re-education for posture and balance. Therapeutic activities to return to functional activities of daily living. Electronically signed by: Emiliana Talbot,PT Please sign and return to therapist. Thank you for your referral.
--- NOTE | 2022-02-22 15:10 | MHC.PT.DC ---
[facility] [place] Office [place] Office [address] [phone] F: [phone] F: [phone] F: [phone] F: [phone] Physical Therapy Discharge Report Diagnosis: S/P RIGHT TKA Date of Surgery: 12/11/21 Date of Evaluation: 12/27/21 Date of Discharge: 02/22/22 Treatments to Date: 15 Cancellations to Date: No Shows to Date: Discharge Status: Achieved Goals Improved Function Independent with HEP Discharge Summary: 02/22/22: Patient demos good ROM 2-121 today actively on own without board or strap but can tolerate to 125 with passive work. She demos 5/5 knee and hip strength, she is I in her HEP and is ready for DC at this time. Pain has improved but has some residual stiffness that is normal. Patient has met her goals and is ready for DC. Electronically signed by: Lavonne Jensen PT Please sign and return to therapist. Thank you for your referral.
== END 2022-02-22 15:11 | disposition home or self-care (01) ==
LOC: HO.PTCHIC 13:00
PROVIDERS: Visit Provider Physician Assistant
DX: Z96.651 Presence of right artificial knee joint (principal)
CPT/HCPCS: 97110; 97140; 97161; 97530

== ENCOUNTER 2022-03-07 09:42 | Outpatient (REF) | payer BC, SELFPAY ==
--- NOTE | ~2022-03-07 | XR_ITS ---
EXAMINATION: XR KNEE, RIGHT XR KNEE STANDING, BILATERAL CLINICAL INFORMATION: Pain in right knee. COMPARISON: Right knee 12/11/2021. TECHNIQUE: AP bilateral knee standing. Right knee 2 views. FINDINGS: AP BILATERAL KNEE: There is a total right knee arthroplasty with prosthetic components in satisfactory alignment. The periprosthetic fat planes are preserved. There is mild anterior knee soft tissue swelling with minimal suprapatellar joint effusion. There is mild loss of medial compartment joint space left knee. There is no visible acute fracture or dislocation. RIGHT KNEE: There is a total right knee arthroplasty with prosthetic components in satisfactory alignment. There is no visible acute fracture, dislocation or subluxation seen. There is no present periprosthetic loosening or fracture. No loose body seen. There is mild anterior soft tissue swelling XR/XR knee RT 2V IMPRESSION: Total right knee arthroplasty plasty with prosthetic components in satisfactory alignment. No visible fracture or dislocation seen. There is mild suprapatellar soft tissue swelling. Mild degenerative changes medial compartment left knee.
--- NOTE | ~2022-03-07 | XR_ITS ---
EXAMINATION: XR KNEE, RIGHT XR KNEE STANDING, BILATERAL CLINICAL INFORMATION: Pain in right knee. COMPARISON: Right knee 12/11/2021. TECHNIQUE: AP bilateral knee standing. Right knee 2 views. FINDINGS: AP BILATERAL KNEE: There is a total right knee arthroplasty with prosthetic components in satisfactory alignment. The periprosthetic fat planes are preserved. There is mild anterior knee soft tissue swelling with minimal suprapatellar joint effusion. There is mild loss of medial compartment joint space left knee. There is no visible acute fracture or dislocation. RIGHT KNEE: There is a total right knee arthroplasty with prosthetic components in satisfactory alignment. There is no visible acute fracture, dislocation or subluxation seen. There is no present periprosthetic loosening or fracture. No loose body seen. There is mild anterior soft tissue swelling XR/XR knee standing BI IMPRESSION: Total right knee arthroplasty plasty with prosthetic components in satisfactory alignment. No visible fracture or dislocation seen. There is mild suprapatellar soft tissue swelling. Mild degenerative changes medial compartment left knee.
== END 2022-03-07 09:43 | disposition home or self-care (01) ==
LOC: HO.HOSX 09:42
PROVIDERS: Visit Provider Physician Assistant
DX: M25.561 Pain in right knee (principal); M25.562 Pain in left knee
CPT/HCPCS: 73560; 73565

== ENCOUNTER 2022-05-30 15:00 | Outpatient (RCR) | payer BC, SELFPAY ==
--- NOTE | 2022-04-19 15:25 | MHC.PT.EP ---
[facility] [place] Office [place] Office [place] Office [address] Waqar Kendrick 140 [facility] [phone] F: [phone] F: [phone] F: [phone] F: [phone] Physical Therapy Plan of Care Date of Evaluation: Date of Surgery: 12/11/2021 Diagnosis: This is a 57 yo female presenting to skilled PT with a script for R TKA Assessment: This is a 57 yo female presenting to skilled PT with a script for R TKA. Patient was here prior for the R total knee replacement on 12/11 and was DC'd from PT on 02/22 with good ROM, strength and had returned to normal daily routine. She was doing well but a couple of weeks ago she had an increase in pain. 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 Pain is described as lateral and is sharp or achy. Additionally, at the end of the day the top of her foot, saab and toes are painful, achy. Every day she bikes (40 mins in increments of 5 mins) and swims (40 mins total). She returns to ortho at the end of May for a follow up. Assessment reveals pain that ranges up to a 5/10. She demos decreased knee ROM with decreased distal tendon range, decreased glut and quad strength, impaired gait pattern with lack of knee extension and heel strike, impaired joint mobility as well as gross functional decline with walking, standing and stairs. She is a good candidate for skilled PT 2x/wk for 5 wks. Plan for next session: hamstring stretching, SLS, quad strengthening in standing (lunges and squats), gait training, gastroc stretching Frequency and Duration: The patient will be seen 2x/wk for 4wks Short Term Goals: I in HEP Improve gastroc length to at least 10 degs [employer] Goals: Demo 0-125 degs knee ROM Demo proper gait with heel strike, knee extension and tolerate up to 20 mins on treadmill without increase in pain Improve BLE strength to 5/5 Improve pain to no more than 2/10 Treatment Plan: Modalities to reduce pain, spasms and effusion. Manual therapy to restore motion and function. Therapeutic exercise to improve strength and flexibility. Neuromuscular re-education for posture and balance. Therapeutic activities to return to functional activities of daily living. Electronically signed by: Lavonne Jensen PT Please sign and return to therapist. Thank you for your referral.
--- NOTE | 2022-06-04 14:29 | MHC.PT.DC ---
[facility] [place] Office [place] Office [place] Office [address] Cecily Kendrick [address] [phone] F: [phone] F: [phone] F: [phone] F: [phone] Physical Therapy Discharge Report Diagnosis: This is a 57 yo female presenting to skilled PT with a script for R TKA Date of Surgery: 12/11/2021 Date of Evaluation: 04/19/22 Date of Discharge: 06/04/22 Treatments to Date: 9 Cancellations to Date: 0 No Shows to Date: 0 Discharge Status: Achieved Goals Improved Function Independent with HEP Patient Elected to Stop Discharge Summary: Patient demos improved ROM, strength, function and pain. She has increased her ambulation tolerance and gait pattern. She called and reported ready for DC and is cleared by ortho to do so. She has a thorough HEP to continue and is I in her program. She is ready for DC and appropriate at this time. Electronically signed by: Lavonne Jensen, PT Please sign and return to therapist. Thank you for your referral.
== END 2022-06-04 14:30 | disposition home or self-care (01) ==
LOC: HO.PTCHIC 15:00
PROVIDERS: Visit Provider Physician Assistant
DX: M76.30 Iliotibial band syndrome, unspecified leg (principal)
CPT/HCPCS: 97110; 97140; 97162

== ENCOUNTER 2022-10-17 10:30 | Outpatient (REF) | payer BC, SELFPAY ==
--- NOTE | ~2022-10-17 | XR_ITS ---
EXAMINATION: XR KNEE, RIGHT XR KNEE AP STANDING CLINICAL INFORMATION: Pain. COMPARISON: Radiographs dated 03/07/2022. TECHNIQUE: Lateral and axial views of the right knee. AP standing view of the bilateral knees. FINDINGS: Prosthetic components of the right total knee arthroplasty are appropriately aligned without periprosthetic fracture or lucency. No component migration. No joint effusion. There is very mild asymmetric narrowing of the medial joint space compartment of the left knee. The lateral joint space compartment is well-maintained. No significant varus or valgus consideration is seen bilaterally. XR/XR knee RT 2V IMPRESSION: 1. Appropriate alignment of the right total knee arthroplasty without evidence of complications. 2. There is very mild osteoarthritic change of the medial joint space compartment of the left knee. 3. No significant varus or valgus configuration is seen bilaterally.
--- NOTE | ~2022-10-17 | XR_ITS ---
EXAMINATION: XR KNEE, RIGHT XR KNEE AP STANDING CLINICAL INFORMATION: Pain. COMPARISON: Radiographs dated 03/07/2022. TECHNIQUE: Lateral and axial views of the right knee. AP standing view of the bilateral knees. FINDINGS: Prosthetic components of the right total knee arthroplasty are appropriately aligned without periprosthetic fracture or lucency. No component migration. No joint effusion. There is very mild asymmetric narrowing of the medial joint space compartment of the left knee. The lateral joint space compartment is well-maintained. No significant varus or valgus consideration is seen bilaterally. XR/XR knee standing BI IMPRESSION: 1. Appropriate alignment of the right total knee arthroplasty without evidence of complications. 2. There is very mild osteoarthritic change of the medial joint space compartment of the left knee. 3. No significant varus or valgus configuration is seen bilaterally.
== END 2022-10-17 10:31 | disposition home or self-care (01) ==
LOC: HO.HOSX 10:30
PROVIDERS: PCP Internal Medicine; Visit Provider Orthopaedic Surgery
DX: M25.561 Pain in right knee (principal)
CPT/HCPCS: 73560; 73565

== ENCOUNTER 2022-12-09 12:22 | Outpatient (REF) | payer BC, SELFPAY ==
--- NOTE | ~2022-12-09 | XR_ITS ---
EXAMINATION: XR KNEE, RIGHT XR KNEE AP STANDING CLINICAL INFORMATION: Pain. COMPARISON: Radiographs dated 10/17/2022. TECHNIQUE: Lateral and axial views of the right knee were obtained. AP bilateral standing view of the knees was obtained. FINDINGS: Prosthetic components of the right total knee arthroplasty are appropriately aligned without periprosthetic fracture or lucency. No component migration. No joint effusion. There is mild asymmetric narrowing of the medial joint space compartment of the left knee, the lateral joint space compartment is well-maintained. There is mild peripheral osteophyte formation of the lateral joint space compartment. There is no significant varus or valgus configuration noted bilaterally. XR/XR knee standing BI IMPRESSION: 1. Appropriate alignment of the right total knee arthroplasty. 2. There is mild osteoarthritic change of the lateral and medial joint space compartments of the left knee, greater in the medial compartment. 3. No significant varus or valgus configuration noted bilaterally.
--- NOTE | ~2022-12-09 | XR_ITS ---
EXAMINATION: XR KNEE, RIGHT XR KNEE AP STANDING CLINICAL INFORMATION: Pain. COMPARISON: Radiographs dated 10/17/2022. TECHNIQUE: Lateral and axial views of the right knee were obtained. AP bilateral standing view of the knees was obtained. FINDINGS: Prosthetic components of the right total knee arthroplasty are appropriately aligned without periprosthetic fracture or lucency. No component migration. No joint effusion. There is mild asymmetric narrowing of the medial joint space compartment of the left knee, the lateral joint space compartment is well-maintained. There is mild peripheral osteophyte formation of the lateral joint space compartment. There is no significant varus or valgus configuration noted bilaterally. XR/XR knee RT 2V IMPRESSION: 1. Appropriate alignment of the right total knee arthroplasty. 2. There is mild osteoarthritic change of the lateral and medial joint space compartments of the left knee, greater in the medial compartment. 3. No significant varus or valgus configuration noted bilaterally.
== END 2022-12-09 12:23 | disposition home or self-care (01) ==
LOC: HO.HOSX 12:22
PROVIDERS: Visit Provider Orthopaedic Surgery
DX: M25.561 Pain in right knee (principal); M17.12 Unilateral primary osteoarthritis, left knee; Z96.651 Presence of right artificial knee joint
CPT/HCPCS: 73560; 73565

== ENCOUNTER → 2023-10-09 15:25 | Outpatient (BNVA) | payer BC, SELFPAY | PROVIDERS: PCP Internal Medicine; Visit Provider Physician Assistant ==

== ENCOUNTER 2023-10-22 08:12 | Outpatient (AMB) | payer BC, SELFPAY ==
--- NOTE | 2023-10-22 13:41 | MHC.OFFVISWM ---
Intake VS Expanded 10/22/23 14:00 Height 5 ft Weight 260 lb 4 oz BMI 50.8 Body Fat % 50.1 Body Fat Mass 130.6 Fat Free Mass 129.8 Visceral Fat Rating 20 Body Water % 35.4 Body Water Mass 92.2 Basal Metabolic Rate/Score 1,854 Intake Visit Reasons: TV Revision SWL BMI 50.8 Allergies cephalexin [From Keflex] Allergy (Intermediate, Verified 10/22/23 13:41) Gastrointestinal Upset Mallory And Derivatives Allergy (Intermediate, Verified 10/22/23 13:41) Shortness of Breath nut - unspecified Allergy (Intermediate, Verified 10/22/23 13:41) Swelling oxycodone [From Percocet] Allergy (Intermediate, Verified 10/22/23 13:41) Nausea and Vomiting codeine Allergy (Verified 10/22/23 13:41) Hives Medication List - Last Reconciled 10/22/23 by Sergio Spivey MD acetaminophen 650 mg (2 x 325 mg) PO Q6H PRN 30 days amlodipine 1 tab PO DAILY dextroamphetamine-amphetamine 20 mg (Adderall) 20 mg PO DAILY esomeprazole magnesium 40 mg PO DAILY estradiol 1 tab PO DAILY fluticasone furoate-vilanterol 200-25 mcg/dose (Breo Ellipta) 1 inh inhalation Q24H hydrochlorothiazide 1 cap PO DAILY ipratropium bromide 2 sprays intranasal BID levocetirizine 5 mg PO DAILY levothyroxine 1 tab PO DAILY lisinopril 20 mg PO DAILY lorazepam 1 tab PO DAILY PRN montelukast 10 mg PO DAILY nystatin 5 mL PO QID simethicone 160 mg PO BID trazodone 50 mg PO BEDTIME venlafaxine ER 150 mg PO DAILY HPI TV Revision SWL BMI 50.8 HPI Details Start time: 1.30pm, End time: 2.22pm ?I spent 47 minutes speaking with the patient on the phone plus an additional 5 minutes reviewing and updating records for a total of 52 minutes HPI Comments History of Present Illness Details Previous weight loss efforts: LSG, Noom program Wakes up: 6am, Sleeps: 10.30pm Breakfast:7am (wrap, egg and cheese) Lunch: 12pm (2 cups chicken tortilla soup, Progressos) Dinner: 6pm (Noom recipes) Snacks: 10am (berries, crackers), 4pm (occasionally a Pure protein bar or crackers), 7-8pm (ice cream, popsicle, popcorn) Exercise: none, has a treadmill and bike Fluids: Coffee: none, tea: (1 cup/day with milk), soda: none, juice: Crystal light, ETOH: none PFSH Medical History (Updated 10/22/23 @ 13:52 by Sergio Spivey MD) ADHD Asthma Hypothyroidism GERD (gastroesophageal reflux disease) Morbid obesity Paradoxical vocal cord motion Environmental allergies Personal history of COVID-19 History of blood transfusion CASANDRA on CPAP Insomnia Depression Anxiety Osteoarthritis of right knee Arron's disease Hypertension Surgical History History of sleeve gastrectomy Hx of tonsillectomy History of History of bilateral cataract extraction History of laryngoscopy Hx of colonoscopy History of hysterectomy, supracervical History of back surgery History of cholecystectomy H/O partial thyroidectomy H/O Spinal surgery Social History (Updated 10/09/23 @ 15:36 by Mona Saab [facility]) Household Members: Spouse Housing: House Are you a primary director of patient care to a significant other at home: No Do you presently have visiting nurse or other home services: No Alcohol intake: never Comment: wears a knee brace, aware of trip hazard Patient Tobacco Use Status: Never used Tobacco service: No Current occupational status: employed Current occupation: disability claims Assessment & Plan Assessment & Plan (1) Morbid obesity: Code(s): E66.01 - Morbid (severe) obesity due to excess calories Plan: 1.? Plan for lap sleeve gastrectomy. If diaphragmatic or ventral hernias are present at time of surgery, these will be repaired laparoscopically as well. Risks and complications were discussed in detail including possible conversion to an open procedure, anastomotic leak, bleeding requiring transfusion, small bowel obstruction, , DVT and pulmonary embolism, cardiac, or pulmonary complications, as halfway complications such as anastomotic ulcer, insufficient weight loss and vitamin deficiencies. I emphasized the importance of close follow-up, adherence to instructions and good communication. 2. Nutritional counseling. Start with 2 CELEBRATE REBUILD protein (buy at [facility]) shakes (ONE scoop EACH in 8oz low fat unsweetened almond milk each) at 7am-9am and 10am-12pm, 2 protein bars (CELEBRATE protein bars, buy at [facility]) at 1pm-3pm and 4pm-6pm, dinner at 7pm (8 forks of protein and 8 forks of salad/vegetables) AND one more protein bar after dinner at 8.30pm-10.30pm. So you do 2 protein shakes, 3 protein bars and one meal per day. Meal to include lean meat (beef, fish, pork, turkey, chicken), or welsh yogurt, or egg whites, or beans with a salad with olive oil and fruits (berries, pears, apples, kiwi). Avoid salt, breads, potatoes, rice, pasta, desserts. 3. Each shake would be drunk slowly, like coffee in a period of 2 hours. 4. Cut each bar in 4 pieces and eat each piece in 30min ?to make each bar last 2 hours. 5. I emphasized the importance of measuring accurately the food portion and measure it when serving the food in plate 6. The meal portions include 8 full-size forks of meat and 8 full-size forks of salad. You always eat the meat portion but you can replace up to 4 forks for salad/vegetables with rice, potatoes or pasta, or a fruit ?if you like. The less you do it the better weight loss will be. 7. One full-size fork is what it can be scooped on the fork without falling aside and not what can be bit with the fork. Use regular forks like those you find in a typical restaurant. 8.? Please send me weight measurements as soon as possible and then once a week. Always include your diet and exercise plan. 9. Start treadmill with an incline of 2.0 and speed of 2.5. Increase incline by 1 every 3 min to a max incline of 8.0, stay 3min at 8.0 and then return to 2.0 and repeat same steps for 150 calories daily. Goal is to burn 2000 calories per week on exercise, which means either 300 calories daily. 10. Start stationary bike at a resistance level of 0.0 Increase level by 1.0 every 3 min to a max level of 6.0. Stay at this level for 3 min and then return to level 0.0 and repeat same steps until 150 calories are burned, daily. Velocity target is 12mph. Goal is to burn 2000 calories per week on exercise collectively on treadmill and bike. 11. Goal is to lose at least 1.5-2lbs per week 12. Goal to lose 10% of your weight before surgery, which is about 26lbs. Ultimate weight goal: 234lbs before surgery 13. Please follow the diet plan exactly without any change. If you don't like something about the plan or you feel hungry you need to communicate with me so I can help you revise the plan. You should not change the plan yourself. Orders: Orders Insulin Today E03.9 - Hypothyroidism, unspecified, E66.01 - Morbid (severe) obesity due to excess calories, I10 - Essential (primary) hypertension, J45.909 - Unspecified asthma, uncomplicated, K21.9 - Gastro-esophageal reflux disease without esophagitis Complete Blood Count Auto Diff Today E03.9 - Hypothyroidism, unspecified, E66.01 - Morbid (severe) obesity due to excess calories, I10 - Essential (primary) hypertension, J45.909 - Unspecified asthma, uncomplicated, K21.9 - Gastro-esophageal reflux disease without esophagitis IRON PROFILE Today E03.9 - Hypothyroidism, unspecified, E66.01 - Morbid (severe) obesity due to excess calories, I10 - Essential (primary) hypertension, J45.909 - Unspecified asthma, uncomplicated, K21.9 - Gastro-esophageal reflux disease without esophagitis Comprehensive Met. Panel Today E03.9 - Hypothyroidism, unspecified, E66.01 - Morbid (severe) obesity due to excess calories, I10 - Essential (primary) hypertension, J45.909 - Unspecified asthma, uncomplicated, K21.9 - Gastro-esophageal reflux disease without esophagitis Vitamin B12 and Folate Today E03.9 - Hypothyroidism, unspecified, E66.01 - Morbid (severe) obesity due to excess calories, I10 - Essential (primary) hypertension, J45.909 - Unspecified asthma, uncomplicated, K21.9 - Gastro-esophageal reflux disease without esophagitis Zinc Today E03.9 - Hypothyroidism, unspecified, E66.01 - Morbid (severe) obesity due to excess calories, I10 - Essential (primary) hypertension, J45.909 - Unspecified asthma, uncomplicated, K21.9 - Gastro-esophageal reflux disease without esophagitis Vitamin B1 Today E03.9 - Hypothyroidism, unspecified, E66.01 - Morbid (severe) obesity due to excess calories, I10 - Essential (primary) hypertension, J45.909 - Unspecified asthma, uncomplicated, K21.9 - Gastro-esophageal reflux disease without esophagitis Vitamin A Today E03.9 - Hypothyroidism, unspecified, E66.01 - Morbid (severe) obesity due to excess calories, I10 - Essential (primary) hypertension, J45.909 - Unspecified asthma, uncomplicated, K21.9 - Gastro-esophageal reflux disease without esophagitis TSH reflex Free T4 Today E03.9 - Hypothyroidism, unspecified, E66.01 - Morbid (severe) obesity due to excess calories, I10 - Essential (primary) hypertension, J45.909 - Unspecified asthma, uncomplicated, K21.9 - Gastro-esophageal reflux disease without esophagitis Ferritin Today E03.9 - Hypothyroidism, unspecified, E66.01 - Morbid (severe) obesity due to excess calories, I10 - Essential (primary) hypertension, J45.909 - Unspecified asthma, uncomplicated, K21.9 - Gastro-esophageal reflux disease without esophagitis US abdomen comp w elastography Today E03.9 - Hypothyroidism, unspecified, E66.01 - Morbid (severe) obesity due to excess calories, I10 - Essential (primary) hypertension, J45.909 - Unspecified asthma, uncomplicated, K21.9 - Gastro-esophageal reflux disease without esophagitis FL upper GI w air Today E03.9 - Hypothyroidism, unspecified, E66.01 - Morbid (severe) obesity due to excess calories, I10 - Essential (primary) hypertension, J45.909 - Unspecified asthma, uncomplicated, K21.9 - Gastro-esophageal reflux disease without esophagitis Hemoglobin A1c Today E03.9 - Hypothyroidism, unspecified, E66.01 - Morbid (severe) obesity due to excess calories, I10 - Essential (primary) hypertension, J45.909 - Unspecified asthma, uncomplicated, K21.9 - Gastro-esophageal reflux disease without esophagitis H Pylori Breath Test Today E03.9 - Hypothyroidism, unspecified, E66.01 - Morbid (severe) obesity due to excess calories, I10 - Essential (primary) hypertension, J45.909 - Unspecified asthma, uncomplicated, K21.9 - Gastro-esophageal reflux disease without esophagitis Lipid Panel Today E03.9 - Hypothyroidism, unspecified, E66.01 - Morbid (severe) obesity due to excess calories, I10 - Essential (primary) hypertension, J45.909 - Unspecified asthma, uncomplicated, K21.9 - Gastro-esophageal reflux disease without esophagitis C Reactive Protein Today E03.9 - Hypothyroidism, unspecified, E66.01 - Morbid (severe) obesity due to excess calories, I10 - Essential (primary) hypertension, J45.909 - Unspecified asthma, uncomplicated, K21.9 - Gastro-esophageal reflux disease without esophagitis Vitamin D 25-OH Total Today E03.9 - Hypothyroidism, unspecified, E66.01 - Morbid (severe) obesity due to excess calories, I10 - Essential (primary) hypertension, J45.909 - Unspecified asthma, uncomplicated, K21.9 - Gastro-esophageal reflux disease without esophagitis XR chest 2V Today E03.9 - Hypothyroidism, unspecified, E66.01 - Morbid (severe) obesity due to excess calories, I10 - Essential (primary) hypertension, J45.909 - Unspecified asthma, uncomplicated, K21.9 - Gastro-esophageal reflux disease without esophagitis ECG 12 lead EKG Today E03.9 - Hypothyroidism, unspecified, E66.01 - Morbid (severe) obesity due to excess calories, I10 - Essential (primary) hypertension, J45.909 - Unspecified asthma, uncomplicated, K21.9 - Gastro-esophageal reflux disease without esophagitis Referrals Nutrition/Dietitian Referral E03.9 - Hypothyroidism, unspecified, E66.01 - Morbid (severe) obesity due to excess calories, I10 - Essential (primary) hypertension, J45.909 - Unspecified asthma, uncomplicated, K21.9 - Gastro-esophageal reflux disease without esophagitis Behavioral Health Referral E03.9 - Hypothyroidism, unspecified, E66.01 - Morbid (severe) obesity due to excess calories, I10 - Essential (primary) hypertension, J45.909 - Unspecified asthma, uncomplicated, K21.9 - Gastro-esophageal reflux disease without esophagitis Telehealth Telehealth Location of provider rendering services: practice address Location of patient: address on file Patient Identification confirmed using: Name, : Yes Telehealth method: voice only Patient verbally consented to treatment: Yes Patient verbally consented to billing insurance company: Yes Patient informed of any privacy concerns related to visit: Yes Minutes spent on Phone/Video with Pt.: 52 Coding Level of Care Code Tele New Pt Level 4 (04417) Diagnoses Morbid obesity E66.01 Time Spent (min) 52
[2023-10-22 14:00] VITALS: BMI 50.8
== END 2023-10-22 14:23 | disposition home or self-care (01) ==
LOC: HO.HBS 08:12
PROVIDERS: PCP Internal Medicine; Visit Provider Surgery
DX: E66.01 Morbid (severe) obesity due to excess calories (principal); Z68.43 Body mass index [BMI] 50.0-59.9, adult; Z90.3 Acquired absence of stomach [part of]; Z98.84 Bariatric surgery status
CPT/HCPCS: 99443

== ENCOUNTER → 2023-10-22 08:12 | Outpatient (BNVA) | payer BC, SELFPAY | PROVIDERS: PCP Internal Medicine; Visit Provider Surgery ==

== ENCOUNTER 2023-10-24 08:35 | Outpatient (REF) | payer BC, SELFPAY ==
--- NOTE | ~2023-10-24 | XR_ITS ---
EXAMINATION: XR CHEST CLINICAL INFORMATION: Preoperative, obesity. COMPARISON: None available. TECHNIQUE: 2 views of the chest were obtained. FINDINGS: No focal airspace opacities, pleural effusion or pneumothorax. Normal appearance of the cardiomediastinal silhouette. Thoracic spondylosis. No acute osseous findings. XR/XR chest 2V IMPRESSION: No acute cardiopulmonary findings.
--- NOTE | 2023-10-24 08:40 | ECG_ITS ---
Test Reason : E66.01 Blood Pressure : / mmHG Vent. Rate : 075 BPM Atrial Rate : 075 BPM P-R Int : 158 ms QRS Dur : 084 ms QT Int : 414 ms P-R-T Axes : 054 006 028 degrees QTc Int : 462 ms Normal sinus rhythm Normal ECG No previous ECGs available Referred By: Sergio Spivey Electronically Signed By:VON TILLMAN
[2023-10-24 08:59] LABS: MANUAL DIFF FLAG NO
[2023-10-24 10:12] LABS: Basophils Absolute Auto 0.1 X10*3/uL (0.0-0.2); Basophils Percent Auto 0.6 % (0-2); Eosinophils Absolute Auto 0.2 X10*3/uL (0.0-0.4); Eosinophils Percent Auto 1.9 % (0-4); Hematocrit 43.9 % (37.0-47.0); Hemoglobin 14.6 g/dl (12.0-16.0); Imm Gran Abs Auto 0.09 X10*3/uL (0.00-0.03); Imm Gran Pct Auto 0.9 % (0.0-0.4); Lymphocytes Absolute Auto 2.2 X10*3/uL (1.2-4.9); Lymphocytes Percent Auto 22.7 % (20-40); Mean Corpuscular HGB Conc 33.3 g/dl (31.0-35.0); Mean Corpuscular Hemoglobin 30.3 pg (27.0-33.0); Mean Corpuscular Volume 91.1 fL (80.0-98.0); Mean Platelet Volume 10.4 fL (9.4-12.3); Monocytes Absolute Auto 0.8 X10*3/uL (0.1-1.2); Monocytes Percent Auto 8.8 % (2-11); Neutrophils Absolute Auto 6.2 x10*3/uL (2.0-8.3); Neutrophils Percent Auto 65.1 % (45-73); Platelet Count 294 X10*3/uL (160-400); Red Blood Count 4.82 X10*6/uL (4.20-5.50); Red Cell Distribution Width 12.9 % (11.0-16.0); White Blood Count 9.6 X10*3/uL (4.8-10.8)
[2023-10-24 10:18] LABS: Estimated Average Glucose 105 mg/dL; Hemoglobin A1c % 5.3 % (<6.0)
[2023-10-24 10:49] LABS: Alanine Aminotransferase 26 U/L (0-31); Albumin Level 4.1 g/dL (3.5-5.0); Alkaline Phosphatase 100 U/L (39-117); Anion Gap 14 (12-20); Aspartate Amino Transferase 26 U/L (5-31); Bilirubin Total 0.4 mg/dL (0.0-1.0); Blood Urea Nitrogen 16 mg/dL (9-16); Calcium 9.2 mg/dL (8.4-10.2); Carbon Dioxide 28 mmol/L (22-29); Chloride 102 mmol/L (96-108); Cholesterol 188 mg/dL (<200); Estimated Glomerular Filt Rate > 60; Glucose Random 72 mg/dL (60-115); HDL Cholesterol 59 mg/dL (>40); Iron 96 mcg/dL (30-160); LDL Cholesterol Calculated 103 mg/dL (<100); Percent Iron Saturation 30 % (15-50); Potassium 3.8 mmol/L (3.3-5.1); Sodium 140 mmol/L (135-145); Total Iron Binding Capacity 321 mcg/dL (228-428); Total Protein 7.4 g/dL (6.5-8.0); Triglycerides 134 mg/dL (<150); Unsaturated Iron Binding 225 ug/dL
[2023-10-24 11:05] LABS: Ferritin 103 ng/mL (10-250); Insulin 15 uU/mL (2-29); TSH reflex Free T4 1.49 uIU/mL (0.32-4.0); Vitamin D 25-OH Total 32.8 ng/mL (>30)
[2023-10-24 11:08] LABS: Folate 12.7 ng/mL (> or = 4.0); Vitamin B12 471 pg/mL (200-900)
[2023-10-28 02:27] LABS: Zinc 84 mcg/dL (60-130)
[2023-10-29 01:59] LABS: Vitamin A 57 mcg/dL (38-98)
[2023-10-31 16:48] LABS: Vitamin B1 15 nmol/L (8-30)
== END 2023-10-24 08:36 | disposition home or self-care (01) ==
LOC: HO.XRAY 08:35
PROVIDERS: Visit Provider Surgery
DX: E66.01 Morbid (severe) obesity due to excess calories (principal); I10 Essential (primary) hypertension; K21.9 Gastro-esophageal reflux disease without esophagitis; E03.9 Hypothyroidism, unspecified; J45.909 Unspecified asthma, uncomplicated
CPT/HCPCS: 36415; 71046; 80053; 80061; 82306; 82607; 82728; 82746; 83036; 83525; 83540; 84425; 84443; 84590; 84630; 85025; 86140; 93005

== ENCOUNTER → 2023-10-24 08:40 | Outpatient (BNV) | payer BC, SELFPAY | PROVIDERS: Visit Provider Internal Medicine | DX: I10 Essential (primary) hypertension (principal) | CPT/HCPCS: 93010 ==

== ENCOUNTER 2023-11-10 08:04 | Outpatient (AMB) | payer BC, SELFPAY ==
--- NOTE | 2023-11-10 10:00 | A.OFFVIS_ITS ---
Intake VS Expanded 11/10/23 10:13 Height 5 ft Weight 258 lb 4 oz BMI 50.4 Body Fat % 60.3 Body Fat Mass 155.8 Fat Free Mass 102.8 Visceral Fat Rating 30 Body Water % 28.7 Body Water Mass 74.1 Basal Metabolic Rate/Score 1,375 Intake Visit Reasons: TV Follow Up SWL - 1ST Allergies cephalexin [From Keflex] Allergy (Intermediate, Verified 10/22/23 13:41) Gastrointestinal Upset Otero And Derivatives Allergy (Intermediate, Verified 10/22/23 13:41) Shortness of Breath nut - unspecified Allergy (Intermediate, Verified 10/22/23 13:41) Swelling oxycodone [From Percocet] Allergy (Intermediate, Verified 10/22/23 13:41) Nausea and Vomiting codeine Allergy (Verified 10/22/23 13:41) Hives HPI TV Follow Up SWL - HPI Details Start time: 10.00am, End time: 10.20am ?I spent 15 minutes speaking with the patient on the phone plus an additional 5 minutes reviewing and updating records for a total of 20 minutes HPI Comments History of Present Illness Details Overall weight loss: 2lbs, or 0.8% TBWL Is doing 2 Celebrate Rebuild protein shakes (1 scoop each in oat milk), 3 Zone Perfect protein bars and one meal (8 forks of protein and 8 forks of salad or vegetables) Exercise: is doing treadmill x5/week for 280 calories (speed: 2.5 and incline: 2-8) PFS Medical History (Updated 10/22/23 @ 13:52 by Sergio Spivey MD) ADHD Asthma Hypothyroidism GERD (gastroesophageal reflux disease) Morbid obesity Paradoxical vocal cord motion Environmental allergies Personal history of COVID-19 History of blood transfusion CASANDRA on CPAP Insomnia Depression Anxiety Osteoarthritis of right knee Arron's disease Hypertension Surgical History History of sleeve gastrectomy Hx of tonsillectomy History of History of bilateral cataract extraction History of laryngoscopy Hx of colonoscopy History of hysterectomy, supracervical History of back surgery History of cholecystectomy H/O partial thyroidectomy H/O Spinal surgery Social History (Updated 10/09/23 @ 15:36 by Mona Saab CMA) Household Members: Spouse Housing: House Are you a primary plant health care technician to a significant other at home: No Do you presently have visiting nurse or other home services: No Alcohol intake: never Comment: wears a knee brace, aware of trip hazard Patient Tobacco Use Status: Never used Tobacco service: No Current occupational status: employed Current occupation: disability claims Assessment & Plan Assessment & Plan (1) Morbid obesity: Code(s): E66.01 - Morbid (severe) obesity due to excess calories Plan: 1. Continue same nutritional plan of 2 Celebrate Rebuild protein shakes (1 scoop each in oat milk), 3 Zone Perfect protein bars and one meal (8 forks of protein and 8 forks of salad or vegetables) 2. Exercise: Continue treadmill x5/week but increase to 400 calories (speed: 2.5 and incline: 2-8), or do it daily for 300 calories. Goal is to burn 2000 calories per week, weekly 3. Continue to send me weight measurements weekly on Mondays Telehealth Telehealth Location of provider rendering services: practice address Location of patient: address on file Patient Identification confirmed using: Name, : Yes Telehealth method: voice only Patient verbally consented to treatment: Yes Patient verbally consented to billing insurance company: Yes Patient informed of any privacy concerns related to visit: Yes Minutes spent on Phone/Video with Pt.: 20 Coding Level of Care Code Tele Est Pt Level 3 (37851) Diagnoses Morbid obesity E66.01 Time Spent (min) 20
[2023-11-10 10:13] VITALS: BMI 50.4
== END 2023-11-10 10:21 | disposition home or self-care (01) ==
LOC: HO.HBS 08:05
PROVIDERS: PCP Internal Medicine; Visit Provider Surgery
DX: E66.01 Morbid (severe) obesity due to excess calories (principal); Z68.43 Body mass index [BMI] 50.0-59.9, adult
CPT/HCPCS: 99442

== ENCOUNTER → 2023-11-10 08:04 | Outpatient (BNVA) | payer BC, SELFPAY | PROVIDERS: PCP Internal Medicine; Visit Provider Surgery ==

== ENCOUNTER 2023-11-18 14:58 | Outpatient (AMB) | payer BC, SELFPAY ==
--- NOTE | 2023-11-18 14:34 | A.OFFWM_ITS ---
Intake Intake Visit Reasons: VIDEO BH Intake Allergies cephalexin [From Keflex] Allergy (Intermediate, Verified 10/22/23 13:41) Gastrointestinal Upset [place] And Derivatives Allergy (Intermediate, Verified 10/22/23 13:41) Shortness of Breath nut - unspecified Allergy (Intermediate, Verified 10/22/23 13:41) Swelling oxycodone [From Percocet] Allergy (Intermediate, Verified 10/22/23 13:41) Nausea and Vomiting codeine Allergy (Verified 10/22/23 13:41) Hives [facility] Medical History (Updated 10/22/23 @ 13:52 by Sergio Spivey MD) ADHD Asthma Hypothyroidism GERD (gastroesophageal reflux disease) Morbid obesity Paradoxical vocal cord motion Environmental allergies Personal history of COVID-19 History of blood transfusion CASANDRA on CPAP Insomnia Depression Anxiety Osteoarthritis of right knee Arron's disease Hypertension Surgical History (Reviewed 06/03/22 @ 08:29 by Tiffany Santana [facility]) History of sleeve gastrectomy Hx of tonsillectomy History of History of bilateral cataract extraction History of laryngoscopy Hx of colonoscopy History of hysterectomy, supracervical History of back surgery History of cholecystectomy H/O partial thyroidectomy H/O Spinal surgery Social History (Updated 10/09/23 @ 15:36 by Mona Saab [facility]) Household Members: Spouse Housing: House Are you a primary hospice home care coordinator to a significant other at home: No Do you presently have visiting nurse or other home services: No Alcohol intake: never Comment: wears a knee brace, aware of trip hazard Patient Tobacco Use Status: Never used Tobacco service: No Current occupational status: employed Current occupation: disability claims Behavioral Health Assessment Weight Management Therapy Therapy Notes Details Pt is looking for possible weight loss surgery revision to help improve her health and quality of life. Pt is in therapy through [facility] and meets with Gianna. Also takes medications prescribed through her primary care doctor. She stated that she had a very difficult year last year emotionally, she was out of work for 4 months. Presenting Concerns Referral Source provider Reason for referral weight loss surgery evaluation Precipitating Event obesity Living Situation Current Living Situation Own At risk of losing current housing? No Satisfied with current living situation? Yes Comments Pt lives with her and chief librarian music department her son and 4 grandsons 4, 6, 8, and 12 years old. Food/Weight/Diet Expectations of change weight loss History/Relationship with food She reported that she is often an emotional eater. History/Relationship with dieting Patient reported that she has gastric sleeve in 2015 and went from 254- 217 lbs. Also did Noom and lost 50lbs. Binge Eating Do you frequently eat large amounts of food in short periods of time, not feeling physically hungry? No Do you feel out of control when you eat a large amount of food in a short period of time? No Do you eat large amounts of food rapidly and typically alone? No Night Eating Do you wake up at least once during the night to eat? No If you wake up in the night, do you find that it is necessary to eat something in order to fall back asleep? No Do you have little or no appetite in the morning and feel very hungry in the evening, often overeating between dinner and when you go to bed? No Legal Involvement and History Current or historical involvement with the legal system? none Education Preferred learning style Auditory, Verbal, Written, Learn by doing and Visual Currently enrolled in educational program? No Interested in further educational program? No Employment Employment Status [employer] Wants help to find employment? No Financial Situation Describe current financial situation Comfortable Financial assistance? None Service Service? No Mental Health and Addiction Treatment Current/Past substance abuse? No Current/Past addictive behavior concerns? Yes Pain Screening Current pain? Yes Pain in the last few months? Yes Medications Is the patient compliant with medications? Yes Does the patient have Conde Guardian in place? Not applicable Does the patient use complimentary health approaches? No Trauma/Abuse History History of trauma? Yes Questionnaires PHQ-9 Over the last 2 weeks, how often have you been bothered by any of the following problems? 1. Little interest or pleasure in doing things: not at all 2. Feeling down, depressed, or hopeless: not at all 3. Trouble falling or staying asleep, or sleeping too much: several days 4. Feeling tired or having little energy: several days 5. Poor appetite or overeating: more than half the days 6. Feeling bad about yourself - or that you are a failure or have let yourself or your family down: several days 7. Trouble concentrating on things, such as reading the newspaper or watching television: not at all 8. Moving or speaking so slowly that other people could have noticed. Or the opposite - being so fidgety or restless that you have been moving around a lot more than usual: not at all 9. Thoughts that you would be better off or of hurting yourself in some way: not at all Total score: 5 Source: Developed by Drs. Wayne Cooper, Gisela Quinn, Felice Noriega and colleagues, with an educational hanh from [employer]. Binge Eating Scale Group 1 A. I don't feel self-conscious about my wt. or body size when I'm with others. B. I feel concerned about how I look to others, but it normally does not make me fell disappointed with myself C. I do get self-conscious about my appearance and wt. which makes me feel disappointed in myself. D. I feel very self-conscious about my wt. and frequently I feel intense shame and disgust for myself. I try to avoid social contacts because of my self- consciousness. Response Group 1: C Group 2 A. I don't have any difficulty eating slowly in the proper manner. B. Although I seem to gobble down foods, I don't end up feeling stuffed because of eating to much. C. At times, I tend to eat quickly and then, I feel uncomfortably full afterwards. D. I have the habit of bolting down my food, without really chewing it. When this happens I usually feel uncomfortably stuffed because I've eaten to much. Response Group 2: C Group 3 A. I feel capable to control my eating urges when I want to. B. I feel like I have failed to control my eating more than the average person. C. I feel utterly helpless when it comes to feeling in control of my eating urges. D. Because I feel so helpless about controlling my eating I have become very desperate about trying to get control. Response Group 3: B Group 4 A. I don't have the habit of eating when I'm bored. B. I sometimes eat when I'm bored, but often I'm able to get busy and get my mind off food. C. I have a regular habit of eating when I'm bored, but occasionally, I can use some other activity to get my mind off eating. D. I have a strong habit of eating when I'm bored. Nothing seems to help me breath the habit. Response Group 4: A Group 5 A. I'm usually physically hungry when I eat something. B. Occasionally, I eat something on impulse even though I really am not hungry. C. I have the regular habit of eating foods, that I might not really enjoy, to satisfy a hungry feeling even though physically, I don't need the food. D. Although I'm not physically hungry, I get a hungry feeling in my mouth that only seems to be satisfied when I eat a food, like sandwich, that fills my mouth. Sometimes, when I eat the food to satisfy my mouth hunger, I then spit the food out so I won't gain weight. Response Group 5: B Group 6 A. I don't feel any guilt or self-hate after I overeat. B. After I overeat, occasionally I feel guilt or self-hate. C. Almost all the time I experience strong guilt or self-hate after I overeat. Response Group 6: B Group 7 A. I don't lose total control of my eating when dieting even after periods when I overeat. B. Sometimes when I eat a forbidden food on a diet, I feel like I blew it and eat even more. C. Frequently, I have the habit of saying to myself, I've blown it now, why not go all the way, when I overeat on a diet. When that happens I eat more. D. I have a regular habit of starting a strict diets for myself but I break the diets by going on an eating binge. My life seems to be either a feast or famine. Response Group 7: B Group 8 A. I rarely eat so much food that I feel uncomfortably stuffed afterwards. B. Usually about once a month, I each such a quantity of food, I end up feeling very stuffed. C. I have regular periods during the month when I eat large amounts of food, either at mealtime or at snacks. D. I eat so much food that I regularly feel quite uncomfortable after eating and sometimes a bit nauseous. Response Group 8: B Group 9 A. My level of calorie intake does not go up very high or go down very low on a regular basis. B. Sometimes after I overeat, I will try to reduce my caloric intake to almost nothing to compensate for the excess calories I've eaten. C. I have a regular habit of overeating during the night. It seems that my routine is not to be hungry in the morning but overeat in the evening. D. In my adult years, I have had week-long periods where I practically starve myself. This follows periods when I overeat. It seems I live a life of either feast or famine. Response Group 9: A Group 10 A. I usually am able to stop eating when I want to. I know when enough is enough. B. Every so often, I experience a compulsion to eat which I can't seem to control. C. Frequently, I experience strong urges to eat which I seem unable to control, but at other times I can control my eating urges. D. I feel incapable of controlling urges to eat. I have a fear of not being able to stop eating voluntarily. Response Group 10: C Group 11 A. I don't have any problem stopping eating when I feel full. B. I usually can stop eating when I feel full but occasionally overeat leaving me feeling uncomfortably stuffed. C. I have a problem stopping eating once I start and usually I feel uncomfortably stuffed after I eat a meal. D. Because I have a problem not being able to stop eating when I want, I sometimes have to induce vomiting to relieve my stuffed feeling. Response Group 11: A Group 12 A. I seem to eat just as much when I'm with others, Family social gatherings as when I'm by myself. B. Sometimes, when I'm with other persons, I don't eat as much as I want to eat because I'm self-conscious about my eating. C. Frequently, I eat only a small amount of food when others are present, because I'm very embarrassed about my eating. D. I feel so ashamed about overeating that I pick times to overeat when I know no one will see me. I feel like a closet eater. Response Group 12: B Group 13 A. I eat three meals a day with only an occasional between meal snack. B. I eat 3 meals a day, but I also normally snack between meals. C. When I am snacking heavily, I get in the habit of skipping regular meals. D. There are regular periods when I seem to be continually eating, with no planned meals. Response Group 13: A Group 14 A. I don't think much about trying to control unwanted eating urges. B. At least some of the time, I feel my thoughts are pre-occupied with trying to control my eating urges. C. I feel that frequently I spend much time thinking about how much I ate or about trying not to eat anymore. D. It seems to me that most of my waking hours are pre-occupied by thoughts about eating or not eating. I feel like I'm constantly struggling not to eat. Response Group 14: A Group 15 A. I don't think about food a great deal. B. I have strong craving for food but they last only for brief periods of time. C. I have days when I can't seem to think about anything else but food. D. Most of my days seem to be pre-occupied with thoughts about food. I feel like I live to eat. Response Group 15: B Group 16 A. I usually know whether or not I'm physically hungry. I take the right portion of food to satisfy me. B. Occasionally, I feel uncertain about knowing whether or not I'm physically hungry. A these times it's hard to know how much food I should take to satisfy me. C. Even though I might know how many calories I should eat, I don't have any idea what is a normal amount of food for me. Response Group 16: B Binge Eating Score: 14 Score less than 17 Minimal Risk Score between 18-26 Moderate Risk Score between 27-46 High Risk Assessment & Plan Assessment & Plan (1) Depression: Code(s): F32.A - Depression, unspecified (2) Anxiety: Code(s): F41.9 - Anxiety disorder, unspecified (3) ADHD: Code(s): F90.9 - Attention-deficit hyperactivity disorder, unspecified type (4) Morbid obesity: Code(s): E66.01 - Morbid (severe) obesity due to excess calories Plan patient is unsure if she wants surgery again and is struggle to be on protein meal replacements, she does well with food based plan. Will speak with meter readers supervisor and surgeon to decide. She is currently in treatment for depression, and adhd, reported that she had a breakdown last year emotionally. She is now back to work and doing better. Pt would need to be seen again if she decides to surgery. Telehealth Telehealth Location of provider rendering services: other Location of patient: address on file Patient Identification confirmed using: Name, : Yes Telehealth method: video Patient verbally consented to treatment: Yes Patient verbally consented to billing insurance company: Yes Patient informed of any privacy concerns related to visit: Yes Minutes spent on Phone/Video with Pt.: 45 Coding Level of Care Code Tele Psy Diag Eval (88642) Diagnoses Depression F32.A Anxiety F41.9 ADHD F90.9 Morbid obesity E66.01 Time Spent (min) 45
== END 2023-11-18 15:14 | disposition home or self-care (01) ==
LOC: HO.HBST 14:59
PROVIDERS: PCP Internal Medicine; Visit Provider Counselor Mental Health
DX: F32.A Depression, unspecified (principal); F41.9 Anxiety disorder, unspecified; F90.9 Attention-deficit hyperactivity disorder, unspecified type; E66.01 Morbid (severe) obesity due to excess calories
CPT/HCPCS: 90791

== ENCOUNTER → 2023-11-18 14:58 | Outpatient (BNVA) | payer BC, SELFPAY | PROVIDERS: PCP Internal Medicine; Visit Provider Counselor Mental Health ==

== ENCOUNTER 2023-11-19 09:52 | Day surgery (SDC) | payer BC, SELFPAY ==
--- NOTE | 2023-11-17 12:19 | HO.ANESPROP2 ---
Documented by User: Maryan Choi NP 11/17/23 12:20 HPI - Anesthesia Eval Consult details Narrative: 58yo F for Upper Endoscopy PMFSH Active Problems Active Problems: All Active Problems (Updated 10/22/23 @ 13:52 by Sergio Spivey MD) ADHD (Acute) Asthma (Acute) Osteoarthritis of right knee (Acute) Hypothyroidism (Acute) GERD (gastroesophageal reflux disease) (Acute) Insomnia (Acute) Depression (Acute) Anxiety (Acute) Hypertension (Acute) Morbid obesity (Acute) IT band syndrome (Acute) Primary osteoarthritis of left knee (Acute) History of total right knee replacement (TKR) (Acute) Status post total right knee replacement (Acute) Past Medical History Medical History ADHD Asthma Hypothyroidism GERD (gastroesophageal reflux disease) Morbid obesity Paradoxical vocal cord motion Environmental allergies Personal history of COVID-19 History of blood transfusion CASANDRA on CPAP Insomnia Depression Anxiety Osteoarthritis of right knee Arron's disease Hypertension Family History Family history of problems with anesthesia: No Surgical History Surgical History History of sleeve gastrectomy Hx of tonsillectomy History of History of bilateral cataract extraction History of laryngoscopy Hx of colonoscopy History of hysterectomy, supracervical History of back surgery History of cholecystectomy H/O partial thyroidectomy H/O Spinal surgery History of Problems with Anesthesia: No Social History Social History Household Members: Spouse Housing: House Are you a primary congregational care pastor to a significant other at home: No Do you presently have visiting nurse or other home services: No Alcohol intake: never Comment: wears a knee brace, aware of trip hazard Patient Tobacco Use Status: Never used Tobacco Use of substances other than those prescribed or required for medical reasons: No Are you DNR?: No Advance Directives: No Advance Directives Information Provided: Yes service: No Current occupational status: employed Current occupation: disability claims Meds Allergies Allergy/AdvReac Type Severity Reaction Status Date / Time cephalexin [From Keflex] Allergy Intermediate Gastrointestinal Verified 11/19/23 11:22 Upset Fedora And Derivatives Allergy Intermediate Shortness Verified 11/19/23 11:22 of Breath nut - unspecified Allergy Intermediate Swelling Verified 11/19/23 11:22 oxycodone [From Percocet] Allergy Intermediate Nausea and Verified 11/19/23 11:22 Vomiting codeine Allergy Hives Verified 11/19/23 11:22 Home Medications Medication Instructions Recorded Confirmed Last Taken Type amlodipine 5 mg tablet 1 tab PO DAILY 11/27/21 11/19/23 12/11/21 History estradiol 1 mg tablet 1 tab PO DAILY 11/27/21 11/19/23 Unknown History hydrochlorothiazide 12.5 mg capsule 1 cap PO DAILY 11/27/21 11/19/23 Unknown History levothyroxine 112 mcg tablet 1 tab PO DAILY 11/27/21 11/19/23 Unknown History lorazepam 0.5 mg tablet 1 tab PO DAILY PRN Insomnia 11/27/21 11/19/23 Unknown History trazodone 50 mg tablet 50 mg PO BEDTIME 01/24/22 11/19/23 Unknown History esomeprazole magnesium 40 mg 40 mg PO DAILY 10/09/23 11/19/23 Unknown History capsule,delayed release ipratropium bromide 42 mcg (0.06 2 spray intranasal BID 10/09/23 11/19/23 Unknown History %) nasal spray levocetirizine 5 mg tablet 5 mg PO DAILY 10/09/23 11/19/23 Unknown History montelukast 10 mg tablet 10 mg PO DAILY 10/09/23 11/19/23 Unknown History nystatin 100,000 unit/mL oral 5 ml PO QID 10/09/23 11/19/23 Unknown History suspension venlafaxine 150 mg 150 mg PO DAILY 10/09/23 11/19/23 Unknown History capsule,extended release 24 hr dextroamphetamine-amphetamine 20 20 mg PO DAILY 10/22/23 11/19/23 Unknown History mg tablet (Adderall) fluticasone furoate 200 1 inh inhalation Q24H 10/22/23 11/19/23 Unknown History mcg-vilanterol 25 mcg/dose inhalation powder (Breo Ellipta) lisinopril 20 mg tablet 20 mg PO DAILY 10/22/23 11/19/23 Unknown History Exam Pertinent Lab Results Pertinent Lab Results: Laboratory Tests 10/24/23 08:57 WBC 9.6 Hgb 14.6 D Hct 43.9 D Plt Count 294 Sodium 140 Potassium 3.8 Chloride 102 Carbon Dioxide 28 BUN 16 Creatinine 0.76 Narrative Narrative: EKG 10/2023 Vent. Rate : 075 BPM Atrial Rate : 075 BPM P-R Int : 158 ms QRS Dur : 084 ms QT Int : 414 ms P-R-T Axes : 054 006 028 degrees QTc Int : 462 ms Normal sinus rhythm Normal ECG No previous ECGs available Assessment and Plan Assessment Anesthesia Assessment: Chart Reviewed Final Anesthetic Review Family History of Problems with Anesthesia: No History of Problems with Anesthesia: No Documented by User: Annia Casillas MD 11/19/23 12:44 PMF Active Problems Active Problems: All Active Problems (Updated 11/19/23 @ 11:45 by Annia Casillas MD) ADHD (Acute) Asthma (Acute) Osteoarthritis of right knee (Acute) Hypothyroidism (Acute) GERD (gastroesophageal reflux disease) (Acute) Insomnia (Acute) Depression (Acute) Anxiety (Acute) Hypertension (Acute) Morbid obesity (Acute) IT band syndrome (Acute) Primary osteoarthritis of left knee (Acute) History of total right knee replacement (TKR) (Acute) Status post total right knee replacement (Acute) ? Vocal cord palsy/paralysis (PVFM) - sometimes gets voice changes, throat tightness, noisy/difficult breathing Past Medical History Medical History ADHD Asthma Hypothyroidism GERD (gastroesophageal reflux disease) Morbid obesity Paradoxical vocal cord motion Environmental allergies Personal history of COVID-19 History of blood transfusion CASANDRA on CPAP Insomnia Depression Anxiety Osteoarthritis of right knee Arron's disease Hypertension Family History Family history of problems with anesthesia: No Surgical History Surgical History History of sleeve gastrectomy Hx of tonsillectomy History of History of bilateral cataract extraction History of laryngoscopy Hx of colonoscopy History of hysterectomy, supracervical History of back surgery History of cholecystectomy H/O partial thyroidectomy H/O Spinal surgery History of Problems with Anesthesia: No Social History Social History Household Members: Spouse Housing: House Are you a primary congregational care pastor to a significant other at home: No Do you presently have visiting nurse or other home services: No Alcohol intake: never Comment: wears a knee brace, aware of trip hazard Patient Tobacco Use Status: Never used Tobacco Use of substances other than those prescribed or required for medical reasons: No Are you DNR?: No Advance Directives: No Advance Directives Information Provided: Yes service: No Current occupational status: employed Current occupation: disability claims Meds Allergies Allergy/AdvReac Type Severity Reaction Status Date / Time cephalexin [From Keflex] Allergy Intermediate Gastrointestinal Verified 11/19/23 11:22 Upset Fedora And Derivatives Allergy Intermediate Shortness Verified 11/19/23 11:22 of Breath nut - unspecified Allergy Intermediate Swelling Verified 11/19/23 11:22 oxycodone [From Percocet] Allergy Intermediate Nausea and Verified 11/19/23 11:22 Vomiting codeine Allergy Hives Verified 11/19/23 11:22 Home Medications Medication Instructions Recorded Confirmed Last Taken Type amlodipine 5 mg tablet 1 tab PO DAILY 11/27/21 11/19/23 12/11/21 History estradiol 1 mg tablet 1 tab PO DAILY 11/27/21 11/19/23 Unknown History hydrochlorothiazide 12.5 mg capsule 1 cap PO DAILY 11/27/21 11/19/23 Unknown History levothyroxine 112 mcg tablet 1 tab PO DAILY 11/27/21 11/19/23 Unknown History lorazepam 0.5 mg tablet 1 tab PO DAILY PRN Insomnia 11/27/21 11/19/23 Unknown History trazodone 50 mg tablet 50 mg PO BEDTIME 01/24/22 11/19/23 Unknown History esomeprazole magnesium 40 mg 40 mg PO DAILY 10/09/23 11/19/23 Unknown History capsule,delayed release ipratropium bromide 42 mcg (0.06 2 spray intranasal BID 10/09/23 11/19/23 Unknown History %) nasal spray levocetirizine 5 mg tablet 5 mg PO DAILY 10/09/23 11/19/23 Unknown History montelukast 10 mg tablet 10 mg PO DAILY 10/09/23 11/19/23 Unknown History nystatin 100,000 unit/mL oral 5 ml PO QID 10/09/23 11/19/23 Unknown History suspension venlafaxine 150 mg 150 mg PO DAILY 10/09/23 11/19/23 Unknown History capsule,extended release 24 hr dextroamphetamine-amphetamine 20 20 mg PO DAILY 10/22/23 11/19/23 Unknown History mg tablet (Adderall) fluticasone furoate 200 1 inh inhalation Q24H 10/22/23 11/19/23 Unknown History mcg-vilanterol 25 mcg/dose inhalation powder (Breo Ellipta) lisinopril 20 mg tablet 20 mg PO DAILY 10/22/23 11/19/23 Unknown History Exam Height,Weight and Vital Signs: Height 5 ft Weight 115.666 kg Vital Signs Temp Pulse Resp BP Pulse Ox O2 Del Method 11/19/23 11:20 97.2 F 86 16 138/84 99 Room Air Airway Mallampati Class: III TM Dist: >3cm Neck ROM: Full Partial: Upper Loose/Missing/Broken Teeth: Yes Heart: RRR Lungs: CTAB Assessment and Plan Assessment Anesthesia Assessment: Anesthesia Plan Discussed and Chart Reviewed Final Anesthetic Review Family History of Problems with Anesthesia: No History of Problems with Anesthesia: No NPO: Yes ASA Class: III Final Preanesthetic Review: No Changes in Pt Med Stat, Meds/Allgs Chart Reviewed, Consent Obtained/Reviewed and Anes Risks/Benef Reviewed Patient Risk: Intermediate Procedure Risk: Low Assessment/Block/Sedation in SS: Assess/Block/Sedation-SS Anesthetic Plan Anesthetic Plan: GA, MAC: and TIVA Disposition: Standard PACU
[2023-11-19 11:07] VITALS: BMI 49.8
[2023-11-19 11:20] VITALS: BP 138/84; PULSE 86; RESP 16; TEMP 36.2; O2SAT 99
[2023-11-19] MEDS: Lactated Ringers 1,000 ML 80 ML IVCONT (11:33)
--- NOTE | 2023-11-19 11:55 | P.HPSUR_ITS ---
Pre-Procedural Eval Section A - 24 Hr Update-Section A only Date of Service: 11/19/23 The patient is an INPATIENT: No The patient has been examined within 24 hours of the surgical procedure. The History & Physical has been completed within 30 days and I have reviewed it.: Yes Section B - Complete if H&P > 30 days Chief Complaint: Morbid (severe) obesity due to excess calories Details of Present Illness: GERD Relevant Family History (Specify if Yes): No Relevant Social History: None Present Medications: None Medical History: No relevant PMH History of Previous Operations: No relevant previous surgery Allergies: Allergies Allergy/AdvReac Type Severity Reaction Status Date / Time cephalexin [From Keflex] Allergy Intermediate Gastrointestinal Verified 11/19/23 11:22 Upset [place] And Derivatives Allergy Intermediate Shortness Verified 11/19/23 11:22 of Breath nut - unspecified Allergy Intermediate Swelling Verified 11/19/23 11:22 oxycodone [From Percocet] Allergy Intermediate Nausea and Verified 11/19/23 11:22 Vomiting codeine Allergy Hives Verified 11/19/23 11:22 Review of Systems Sugical H&P ROS: Negative: Constitution, Cardiovascular, Respiratory, Neurological, Psychiatric, Hem-Onc, Allergic/Immunologic, Genitourinary, Musculoskeletal, Integumentary, Endocrine and Eyes/Ears/Nose/Throat and Yes, Specify: Gastrointestinal (Heartburn) Exam Surgical H&P Exam: Normal: HEENT, Normal: Heart, Normal: Lungs, Normal: Extremities, Normal: Abdomen, Normal: Skin and Normal: Neurological Plan Diagnosis/Plan: Unchanged (EGD to assess etiology of GERD. Risks of bleeding and perforation were discussed with the patient and she is in agreement with the plan.) I have reviewed the history and physical and performed a pertinent physical examination on my patient. No changes have occurred unless specified. Time Spent With Patient Time: Total time managing care of this patient today ____ minutes.
--- NOTE | 2023-11-19 11:56 | PM.OP ---
Brief Operative Note Date of Service: 11/19/23 Pre-op diagnosis: GERD Post-op diagnosis: same Procedure: PROCEDURE DATE: 11/19/2023 PREOPERATIVE DIAGNOSIS: GERD, s/p sleeve gastrectomy POSTOPERATIVE DIAGNOSIS: ?Same as above. 1) gastric polyps, 2) redundancy proximal sleeve PROCEDURE: Hdjzgznn-kbwxni-nejiqkzoonav with biopsies Surgeon: ?Soto Spivey M.D.. Ph.D. Academic Affairs Director: None ? Anesthesia: IV sedation Estimated blood loss: ?Minimal FINDINGS AND PROCEDURE: ? OPERATIVE INDICATIONS: ?The patient is a 58 year old female known to me who underwent a laparoscopic sleeve gastrectomy by Dr. Forde. The patient had poor weight loss so far and complains of GERD.? Based on this information I recommended an upper endoscopy to evaluate the patient's symptoms. Risks and complications of the surgery were discussed with the patient in advance particularly the possibility of perforation or bleeding that may require surgical intervention. The patient understood the risks and was in agreement with the plan. ? PROCEDURE: After informed consent was obtained by the patient, the patient was ?transferred to the Operating Room and was placed in the supine position.? After successful induction of IV sedation, a mouth block was inserted and the patient was placed in the left lateral decubitus position. An upper endoscopy was performed next, the oropharynx and esophagus appeared within the normal limits. There was a no hiatal hernia. The z-line was smooth. Two biopsies were obtained from the distal esohagus 2-3 cm proximal to the GE junction and two additional biopsies from the GE junction. The sleeve was entered. There was moderate proximal redundancy. The sleeve's caliber was even throughout but it was wider than it should be. There was no enlarged distal antrum. There was no gastritis at distal antrum. There were polyps throughout the stomach and one of them was biopsied. There was no stricture or ulcer. Biopsies were also obtained from the proximal sleeve as well as the distal antrum. No significant bleeding was noted from any of the biopsy sites. The scope was then advanced into the duodenum which appeared to be normal as well. At that point the duodenum ?and the sleeve were decompressed and the scope was withdrawn from the patient's mouth. The patient extubated and was transferred in stable condition to the Recovery Room for further care. I was present and performed all steps of the procedure. There were no residents to assist with this case. Soto Spivey M.D., Ph.D. Surgeon: Sergio Spivey MD Anesthesia: MAC Was an Academic Affairs Director used for this Procedure?: No Estimated blood loss (mL): 0 IV fluids (mL): 400 Urine output (mL): 0 (No Diez to record output) Pathology: other (1) antrum x1, 2) gastric fundus x1, 3) GE junction x2, 4) distal esophagus x2, 5) gastric polyp x1) Condition: stable Disposition: PACU
[2023-11-19 13:01] VITALS: BP 127/60; PULSE 87; RESP 16; TEMP 36.6; O2SAT 96
[2023-11-19 13:15] VITALS: BP 117/71; PULSE 76; RESP 16; O2SAT 96
[2023-11-19 13:30] VITALS: BP 125/77; PULSE 73; RESP 16; TEMP 36.4; O2SAT 96
== END 2023-11-19 14:53 | disposition home or self-care (01) ==
PROVIDERS: PCP Internal Medicine; Visit Provider Surgery
PROC: 0DJ08ZZ Inspection of Upper Intestinal Tract, Via Natural or Artificial Opening Endoscopic (ICD-10-PCS; CPT 43235; principal; 2023-11-19 11:50)
DX: K95.89 Other complications of other bariatric procedure (principal); K21.9 Gastro-esophageal reflux disease without esophagitis; Z98.84 Bariatric surgery status; K31.7 Polyp of stomach and duodenum; E66.01 Morbid (severe) obesity due to excess calories; Z68.43 Body mass index [BMI] 50.0-59.9, adult; G47.33 Obstructive sleep apnea (adult) (pediatric); I10 Essential (primary) hypertension; E06.3 Autoimmune thyroiditis; J45.909 Unspecified asthma, uncomplicated; Z99.89 Dependence on other enabling machines and devices; Z88.5 Allergy status to narcotic agent; Z88.1 Allergy status to other antibiotic agents
CPT/HCPCS: 43239; 88305; 88313; 88342; J2250; J2704

== ENCOUNTER → 2023-11-19 09:52 | Outpatient (BNV) | payer BC, SELFPAY | PROVIDERS: PCP Internal Medicine; Visit Provider Surgery | DX: K21.9 Gastro-esophageal reflux disease without esophagitis (principal); K95.89 Other complications of other bariatric procedure; K31.7 Polyp of stomach and duodenum; Z90.3 Acquired absence of stomach [part of] | CPT/HCPCS: 43239 ==

== ENCOUNTER 2023-11-27 14:55 | Outpatient (AMB) | payer BC, SELFPAY ==
--- NOTE | 2023-11-27 15:36 | MHC.AMNUTRGE ---
Intake Intake Visit Reasons: VIDEO Initial Nutrition SWL Allergies cephalexin [From Keflex] Allergy (Intermediate, Verified 11/19/23 11:22) Gastrointestinal Upset [place] And Derivatives Allergy (Intermediate, Verified 11/19/23 11:22) Shortness of Breath nut - unspecified Allergy (Intermediate, Verified 11/19/23 11:22) Swelling oxycodone [From Percocet] Allergy (Intermediate, Verified 11/19/23 11:22) Nausea and Vomiting codeine Allergy (Verified 11/19/23 11:22) Hives HPI Nutrition Presentation Reason for consult elevated BMI Diet Assmnt Details Pt reporst she is really struggling with her plan. She spoke with surgeon about her concerns. She is not sure if she is ready to commit to surgery at this time. She doesn't feel this is the right approach for her. She feels the approach she learned with Noom is more appropriate for her. misses being able to eat food for lunch. SWL online cclasses: completed Previous weight loss methods attempted NOOM, LSG 2014 Dietary counseling reduction Meal frequency regular: breakfast (low carb wrap w cheese), lunch (soup), dinner (chicken or fish ) and snacks (berries, peppers, peanut butter ) Diagnosis Nutrition problem #1 overweight/obesity As related to (etiology) #1 excess energy intake and physical inactivity As evidenced by (sign/symptom) #1 high BMI Monitoring/Goals Nutrition problem monitoring total energy intake, level of knowledge/skill, total PRO intake, total CHO intake and weight Outcome progress progressing Learning/Education Readiness to learn good Stages of change action Most Recent Diabetes Results: Cholesterol 188 mg/dL (<200) 10/24/23 HDL Cholesterol 59 mg/dL (>40) 10/24/23 Triglycerides 134 mg/dL (<150) 10/24/23 Creatinine 0.76 mg/dL (0.5-1.4) 10/24/23 Blood Urea Nitrogen 16 mg/dL (9-16) 10/24/23 Sodium 140 mmol/L (135-145) 10/24/23 Potassium 3.8 mmol/L (3.3-5.1) 10/24/23 Chloride 102 mmol/L (96-108) 10/24/23 Carbon Dioxide 28 mmol/L (22-29) 10/24/23 Calcium 9.2 mg/dL (8.4-10.2) 10/24/23 AST 26 U/L (5-31) 10/24/23 ALT 26 U/L (0-31) 10/24/23 Total Protein 7.4 g/dL (6.5-8.0) 10/24/23 Albumin 4.1 g/dL (3.5-5.0) 10/24/23 PFSH Medical History ADHD Asthma Hypothyroidism GERD (gastroesophageal reflux disease) Morbid obesity Paradoxical vocal cord motion Environmental allergies Personal history of COVID-19 History of blood transfusion CASANDRA on CPAP Insomnia Depression Anxiety Osteoarthritis of right knee Arron's disease Hypertension Surgical History History of sleeve gastrectomy Hx of tonsillectomy History of History of bilateral cataract extraction History of laryngoscopy Hx of colonoscopy History of hysterectomy, supracervical History of back surgery History of cholecystectomy H/O partial thyroidectomy H/O Spinal surgery Social History Household Members: Spouse Housing: House Are you a primary healthcare administrator to a significant other at home: No Do you presently have visiting nurse or other home services: No Alcohol intake: never Comment: wears a knee brace, aware of trip hazard Patient Tobacco Use Status: Never used Tobacco service: No Current occupational status: employed Current occupation: disability claims Assessment & Plan Assessment & Plan (1) Morbid obesity: Code(s): E66.01 - Morbid (severe) obesity due to excess calories Plan pt is cleared when ready for surgery but would benefit from another appointment as she isn't certain if she wants to proceed with bariatric surgery. Telehealth Telehealth Location of provider rendering services: other (Home addresss, [facility] ) Location of patient: address on file Patient Identification confirmed using: Name, : Yes Telehealth method: voice only Patient verbally consented to treatment: Yes Patient verbally consented to billing insurance company: Yes Patient informed of any privacy concerns related to visit: Yes Minutes spent on Phone/Video with Pt.: 25 Coding Level of Care Code Nutr Indiv Intake (39895) Diagnoses Morbid obesity E66.01 Time Spent (min) 25
== END 2023-11-27 15:57 | disposition home or self-care (01) ==
LOC: HO.HBS 14:55
PROVIDERS: PCP Internal Medicine; Visit Provider Dietitian, Registered
DX: E66.01 Morbid (severe) obesity due to excess calories (principal)

== ENCOUNTER → 2023-11-27 14:55 | Outpatient (BNVA) | payer BC, SELFPAY | PROVIDERS: PCP Internal Medicine; Visit Provider Dietitian, Registered | DX: E66.01 Morbid (severe) obesity due to excess calories (principal); Z71.3 Dietary counseling and surveillance | CPT/HCPCS: 97802 ==

== ENCOUNTER 2023-12-08 08:09 | Outpatient (AMB) | payer BC, SELFPAY ==
--- NOTE | 2023-12-08 09:14 | A.OFFVIS_ITS ---
Intake VS Expanded 12/08/23 09:28 Height 5 ft Weight 251 lb 6 oz BMI 49.1 Body Fat % 58.2 Body Fat Mass 146.4 Fat Free Mass 105.2 Visceral Fat Rating 30 Body Water % 30.2 Body Water Mass 75.8 Basal Metabolic Rate/Score 1,400 Intake Visit Reasons: TV Follow Up SWL Allergies cephalexin [From Keflex] Allergy (Intermediate, Verified 11/19/23 11:22) Gastrointestinal Upset [place] And Derivatives Allergy (Intermediate, Verified 11/19/23 11:22) Shortness of Breath nut - unspecified Allergy (Intermediate, Verified 11/19/23 11:22) Swelling oxycodone [From Percocet] Allergy (Intermediate, Verified 11/19/23 11:22) Nausea and Vomiting codeine Allergy (Verified 11/19/23 11:22) Hives HPI TV Follow Up SWL HPI Details Start time: 9.08am, End time: 9.35am ?I spent 22 minutes speaking with the patient on the phone plus an additional 5 minutes reviewing and updating records for a total of 27 minutes HPI Comments History of Present Illness Details Overall weight loss: 8.8lbs, or 3.4% TBWL Is doing 2 Celebrate Rebuild protein shakes (1 scoop each in 8oz oat milk), 3 Zone Perfect protein bars and one meal (8 forks of protein and 8 forks of vegetables) Exercise: is doing treadmill x2-3/week for 250-280 calories and stationary bike x3-4/wk for 250 calories PFSH Medical History ADHD Asthma Hypothyroidism GERD (gastroesophageal reflux disease) Morbid obesity Paradoxical vocal cord motion Environmental allergies Personal history of COVID-19 History of blood transfusion CASANDRA on CPAP Insomnia Depression Anxiety Osteoarthritis of right knee Arron's disease Hypertension Surgical History History of sleeve gastrectomy Hx of tonsillectomy History of History of bilateral cataract extraction History of laryngoscopy Hx of colonoscopy History of hysterectomy, supracervical History of back surgery History of cholecystectomy H/O partial thyroidectomy H/O Spinal surgery Social History Household Members: Spouse Housing: House Are you a primary associate director career services to a significant other at home: No Do you presently have visiting nurse or other home services: No Alcohol intake: never Comment: wears a knee brace, aware of trip hazard Patient Tobacco Use Status: Never used Tobacco service: No Current occupational status: employed Current occupation: disability claims Assessment & Plan Assessment & Plan (1) Morbid obesity: Code(s): E66.01 - Morbid (severe) obesity due to excess calories Plan: 1. Change nutritional plan to one Celebrate Rebuild protein shake (1 scoop each in 8oz oat milk) at 7am-9am, one Zone Perfect protein bar at 10am-12pm, another Celebrate shake at 1pm-3pm, another bar at 4pm-6pm, dinner at 7pm (8 forks of protein and 8 forks of vegetables) and one more protein bar after dinner at 9pm- 11pm 2. If you feel too full from your dinner portions reduce to 7 forks each 3. Exercise: continue treadmill x3 days/week for 300 calories and stationary bike x4 days/week for 300 calories. Goal is to burn 2000 calories per week on treadmill and bike 4. Continue to send me weight measurements weekly on Mondays Telehealth Telehealth Location of provider rendering services: practice address Location of patient: address on file Patient Identification confirmed using: Name, : Yes Telehealth method: voice only Patient verbally consented to treatment: Yes Patient verbally consented to billing insurance company: Yes Patient informed of any privacy concerns related to visit: Yes Minutes spent on Phone/Video with Pt.: 27 Coding Level of Care Code Tele Est Pt Level 3 (85009) Diagnoses Morbid obesity E66.01 Time Spent (min) 27
[2023-12-08 09:28] VITALS: BMI 49.1
== END 2023-12-08 09:36 | disposition home or self-care (01) ==
LOC: HO.HBS 08:09
PROVIDERS: PCP Internal Medicine; Visit Provider Surgery
DX: E66.01 Morbid (severe) obesity due to excess calories (principal); Z68.42 Body mass index [BMI] 45.0-49.9, adult
CPT/HCPCS: 99443

== ENCOUNTER → 2023-12-08 08:09 | Outpatient (BNVA) | payer BC, SELFPAY | PROVIDERS: PCP Internal Medicine; Visit Provider Surgery ==

== ENCOUNTER 2023-12-15 09:33 | Outpatient (AMB) | payer BC, SELFPAY ==
--- NOTE | 2023-12-15 09:47 | MHC.WMTHER ---
Intake Intake Visit Reasons: (TV) BH F/U Allergies cephalexin [From Keflex] Allergy (Intermediate, Verified 11/19/23 11:22) Gastrointestinal Upset [place] And Derivatives Allergy (Intermediate, Verified 11/19/23 11:22) Shortness of Breath nut - unspecified Allergy (Intermediate, Verified 11/19/23 11:22) Swelling oxycodone [From Percocet] Allergy (Intermediate, Verified 11/19/23 11:22) Nausea and Vomiting codeine Allergy (Verified 11/19/23 11:22) Hives [facility] Medical History ADHD Asthma Hypothyroidism GERD (gastroesophageal reflux disease) Morbid obesity Paradoxical vocal cord motion Environmental allergies Personal history of COVID-19 History of blood transfusion CASANDRA on CPAP Insomnia Depression Anxiety Osteoarthritis of right knee Arron's disease Hypertension Surgical History History of sleeve gastrectomy Hx of tonsillectomy History of History of bilateral cataract extraction History of laryngoscopy Hx of colonoscopy History of hysterectomy, supracervical History of back surgery History of cholecystectomy H/O partial thyroidectomy H/O Spinal surgery Social History Household Members: Spouse Housing: House Are you a primary laboratory animal care veterinarian to a significant other at home: No Do you presently have visiting nurse or other home services: No Alcohol intake: never Comment: wears a knee brace, aware of trip hazard Patient Tobacco Use Status: Never used Tobacco service: No Current occupational status: employed Current occupation: disability claims Behavioral Health Assessment Weight Management Therapy Therapy Notes Details Pt is looking for possible weight loss surgery revision to help improve her health and quality of life. Pt is in therapy through [facility] and meets with Gianna. Also takes medications prescribed through her primary care doctor. She stated that she had a very difficult year last year emotionally, she was out of work for 4 months. Presenting Concerns Referral Source provider Reason for referral weight loss surgery evaluation Precipitating Event obesity Living Situation Current Living Situation Own At risk of losing current housing? No Satisfied with current living situation? Yes Comments Pt lives with her and department specialist her son and 4 grandsons 4, 6, 8, and 12 years old. Food/Weight/Diet Expectations of change weight loss History/Relationship with food She reported that she is often an emotional eater. History/Relationship with dieting Patient reported that she has gastric sleeve in 2015 and went from 254- 217 lbs. Also did Noom and lost 50lbs. Binge Eating Do you frequently eat large amounts of food in short periods of time, not feeling physically hungry? No Do you feel out of control when you eat a large amount of food in a short period of time? No Do you eat large amounts of food rapidly and typically alone? No Night Eating Do you wake up at least once during the night to eat? No If you wake up in the night, do you find that it is necessary to eat something in order to fall back asleep? No Do you have little or no appetite in the morning and feel very hungry in the evening, often overeating between dinner and when you go to bed? No Legal Involvement and History Current or historical involvement with the legal system? none Education Preferred learning style Auditory, Verbal, Written, Learn by doing and Visual Currently enrolled in educational program? No Interested in further educational program? No Employment Employment Status [employer] Wants help to find employment? No Financial Situation Describe current financial situation Comfortable Financial assistance? None Service Service? No Mental Health and Addiction Treatment Current/Past substance abuse? No Current/Past addictive behavior concerns? Yes Pain Screening Current pain? Yes Pain in the last few months? Yes Medications Is the patient compliant with medications? Yes Does the patient have Conde Guardian in place? Not applicable Does the patient use complimentary health approaches? No Trauma/Abuse History History of trauma? Yes Assessment & Plan Assessment & Plan (1) Depression: Code(s): F32.A - Depression, unspecified (2) Anxiety: Code(s): F41.9 - Anxiety disorder, unspecified (3) ADHD: Code(s): F90.9 - Attention-deficit hyperactivity disorder, unspecified type (4) Morbid obesity: Code(s): E66.01 - Morbid (severe) obesity due to excess calories Plan Patient only wants revision surgery if it is medically necessary. She now has resources and help to continue loosing weight and get her health on track. . She is currently in treatment for depression, and ADHD, reported that she had a breakdown last year emotionally. She is now back to work and doing better. She is cleared for surgery if she decides to go forward. Telehealth Telehealth Location of provider rendering services: other Location of patient: address on file Patient Identification confirmed using: Name, : Yes Telehealth method: voice only Patient verbally consented to treatment: Yes Patient verbally consented to billing insurance company: Yes Patient informed of any privacy concerns related to visit: Yes Minutes spent on Phone/Video with Pt.: 25 Coding Level of Care Code Tele Psytx 30 mins (72277) Diagnoses Depression F32.A Anxiety F41.9 ADHD F90.9 Morbid obesity E66.01 Time Spent (min) 25
== END 2023-12-15 09:48 | disposition home or self-care (01) ==
LOC: HO.HBST 09:33
PROVIDERS: PCP Internal Medicine; Visit Provider Counselor Mental Health
DX: F32.A Depression, unspecified (principal); F41.9 Anxiety disorder, unspecified; F90.9 Attention-deficit hyperactivity disorder, unspecified type; E66.01 Morbid (severe) obesity due to excess calories
CPT/HCPCS: 90832

== ENCOUNTER → 2023-12-15 09:33 | Outpatient (BNVA) | payer BC, SELFPAY | PROVIDERS: PCP Internal Medicine; Visit Provider Counselor Mental Health ==

== ENCOUNTER 2023-12-18 09:31 | Outpatient (REF) | payer BC, SELFPAY ==
--- NOTE | ~2023-12-18 | US_ITS ---
EXAMINATION: US COMPLETE ABDOMEN WITH LIVER ELASTOGRAPHY CLINICAL INFORMATION: COMPARISON: None available. TECHNIQUE: Real-time imaging of the abdominal viscera. Noninvasive ultrasound liver fibrosis assessment is performed using Johanny ElastPQ point quantification shear wave elastography (2D-SWE) with a C5-2 MHz transducer. Multiple elastography samples are obtained. FINDINGS: Exam is limited due to body habitus. PANCREAS: There is mild dilatation of the main pancreatic duct measuring 4 mm. Tail the pancreas is not well visualized due to bowel gas. ABDOMINAL AORTA: Not well visualized due to bowel gas. INFERIOR VENA CAVA: Not well visualized. LIVER: Echotexture is increased. The liver is upper normal normal in size and normal in contour. No focal lesion or intrahepatic biliary duct dilatation. The right lobe measures 17 cm in length. The left lobe measures 13 cm in length. Portal flow is normal/hepatopedal Shear wave liver elastography median stiffness is 1.6 m/s (reference: normal median stiffness is 1.3 m/s or less). IQR/median stiffness to assess sampling precision is 0.13 (reference: good quality data set is IQR/median stiffness of 0.15 or less). GALLBLADDER: Surgically removed COMMON BILE DUCT: Dilated measuring 0.9 to 1.6 cm cm in diameter. RIGHT KIDNEY: Normal. No hydronephrosis. No renal calculi or focal parenchymal lesions. The kidney measures 11 cm in maximum dimension. LEFT KIDNEY: Lobulated border of the anterior midpole of the left kidney. It is difficult to exclude a mass. No hydronephrosis. No renal calculi. The kidney measures 10 cm in maximum dimension. SPLEEN: Normal. The spleen measures 11 cm in maximum dimension. FREE FLUID: None. US/US abdomen comp w elastography IMPRESSION: 1. Impression: Limited exam due to body habitus. Echogenic upper normal-size liver. Postcholecystectomy. Dilated common bile duct. Limited visualization of the pancreas aorta and IVC. The visualized main pancreatic duct in the head and body of the pancreas is slightly dilated measuring 4 mm. Abnormal contour of the anterior midpole of the left kidney. It is difficult to exclude a left renal mass. Follow-up of imaging of the kidneys and pancreas recommended. Given dilated common bile duct and main pancreatic duct, MR of the abdomen and kidneys with and without contrast and MRCP may be most informative. 2. Liver elastography: In the absence of other known clinical signs, rules out compensated advanced chronic liver disease. Adequate liver sampling. REFERENCE: Society of Radiologists in Ultrasound Liver Stiffness Thresholds (2020): LIVER STIFFNESS THRESHOLDS: *Liver Stiffness equal or less than 1.3 m/s: High probability of being normal. *Liver Stiffness less than 1.7 m/s: In the absence of other known clinical signs, rules out compensated advanced chronic liver disease. *Liver Stiffness 1.7-2.1 m/s: Suggestive of compensated advanced chronic liver disease but need further test for confirmation. *Liver Stiffness over 2.1 m/s: Rules in compensated advanced chronic liver disease. *Liver Stiffness over 2.4 m/s: Suggestive of clinically significant portal hypertension. QUALITY OF DATA SET: *IQR/Median value equal or less than 0.15 implies a quality data set. *IQR/Median value over 0.15 implies a poor quality data set. SIGNIFICANT CHANGE FROM PRIOR EXAM: Significant change if liver stiffness measurement is 10% or greater from prior exam. OTHER CONSIDERATIONS: The stage of liver fibrosis may be overestimated in the setting of acute hepatitis, liver inflammation, elevated liver function tests, hepatic vascular congestion, obstructive cholestasis, non-fasting state, and infiltrative diseases such as amyloidosis and lymphoma. In some patients with NAFLD, the liver stiffness thresholds for compensated advanced chronic liver disease may be lower. In causes other than viral hepatitis and NAFLD, liver stiffness thresholds are not well established.
--- NOTE | ~2023-12-18 | FL_ITS ---
EXAMINATION: XR FLUOROSCOPY UPPER GI WITH AIR CLINICAL INFORMATION: Preoperative evaluation prior to bariatric surgery. History of sleeve gastrectomy. COMPARISON: None TECHNIQUE: Fluoroscopic air contrast upper GI examination was performed utilizing standard techniques with thin and thick barium and effervescent granules. Numerous spot images were obtained. FINDINGS: Images of the oropharynx and hypopharynx demonstrate normal swallow mechanism with normal epiglottic inversion and soft palate elevation. No tracheal penetration, glottic or subglottic aspiration identified. No nasopharyngeal reflux present. Hypopharyngeal structures appear normal without evidence of mass or diverticulum. There is moderate cricopharyngeal achalasia present. Dual and single contrast images of the esophagus demonstrate normal caliber, contour, and mucosal pattern. No evidence of stricture, mass, or ulcerations identified. Esophageal peristalsis was normal. No evidence of hiatus hernia identified. No significant gastroesophageal reflux was seen during the course of the examination and on reflux views. Dual contrast and single contrast images of the stomach demonstrated a contour consistent with prior history of sleeve gastrectomy. No masses or ulcerations are seen. Contrast freely passed into the gastric antrum and duodenal bulb without delay. Single and air-contrast images of the duodenal bulb demonstrate no abnormality. The duodenal sweep has a normal appearance, course, and mucosal fold appearance. The imaged proximal jejunum has a normal fold pattern and caliber. Malrotation. There was notable rapid transit of the barium, with oral contrast opacifying the right colon after only 5 minutes. FLUOROSCOPY TIME: 2 minutes Number of Spot Images: 10 Number of Cine: 7 DOSE AREA PRODUCT: 2247 uGy-m2 (microgray-meter squared) FL/FL upper GI w air IMPRESSION: 1. Moderate cricopharyngeal achalasia 2. Postsurgical changes consistent with prior history of sleeve gastrectomy. 3. Rapid transit of the barium column. The right colon was opacified after 5 minutes. Etiologies include malabsorption disorder, hypersecretion disorder, IBS, dumping syndrome, laxatives, among others. This procedure was performed by Edwin Munroe PA-C, and supervised by Dr. Lazar
== END 2023-12-18 09:32 | disposition home or self-care (01) ==
LOC: HO.US 09:31
PROVIDERS: PCP Internal Medicine; Visit Provider Surgery
DX: E66.01 Morbid (severe) obesity due to excess calories (principal); K21.9 Gastro-esophageal reflux disease without esophagitis; I10 Essential (primary) hypertension; E03.9 Hypothyroidism, unspecified; J45.909 Unspecified asthma, uncomplicated
CPT/HCPCS: 74246; 76700; 76981

== ENCOUNTER → 2023-12-18 09:34 | Outpatient (BNV) | payer BC, SELFPAY | PROVIDERS: PCP Internal Medicine; Visit Provider Physician Assistant Surgical | DX: Z01.818 Encounter for other preprocedural examination (principal); E66.01 Morbid (severe) obesity due to excess calories | CPT/HCPCS: 74246 ==

== ENCOUNTER 2024-02-19 10:18 | Outpatient (REF) | payer BC, SELFPAY ==
--- NOTE | ~2024-02-19 | XR_ITS ---
EXAMINATION: XR KNEE, RIGHT CLINICAL INFORMATION: Reason for Exam M25.561 - Pain in right knee COMPARISON: Knee radiographs 12/09/2022 TECHNIQUE: 1 view of the bilateral knees standing. 2 views of the right knee. FINDINGS: RIGHT KNEE: No acute fracture or dislocation. Status post total knee arthroplasty. No evidence of hardware fracture or complication. No joint effusion. Soft tissues are unremarkable. LEFT KNEE: Limited single view of the left knee is remarkable for moderate arthritis worst involving the medial compartment where there is loss of joint space.. XR/XR knee RT 3V IMPRESSION: 1. Status post right total knee arthroplasty. No evidence of hardware fracture or complication. 2. Limited single view of the left knee is remarkable for moderate arthritis.
== END 2024-02-19 10:19 | disposition home or self-care (01) ==
LOC: HO.HOSX 10:18
PROVIDERS: PCP Internal Medicine; Visit Provider Orthopaedic Surgery
DX: M17.12 Unilateral primary osteoarthritis, left knee (principal); Z96.651 Presence of right artificial knee joint
CPT/HCPCS: 73562

== ENCOUNTER 2024-02-19 10:18 | Outpatient (AMB) | payer BC, SELFPAY ==
--- NOTE | 2024-02-19 10:19 | A.OFFVIS_ITS ---
Vital Signs 02/19/24 10:20 Height 5 ft Weight 241 lb BMI 47.1 Intake Visit Reasons: Newprob-RT knee pain-Feels like fluid-DOF 02/07/24 Intake Note: Essie is a 58 year old female who presents today for a new problem visit with complaints of right knee pain. She reports that she stepped on a tree root and rolled her ankle, when she fell the right knee landed on the same tree root that cause the fall. DOI: 02/07/24. Right TKA 12/11/21. She reports that the knee is painful, increased pain with ambulation of stairs. reports a clunking in the posterior aspect of the knee with extension. She took tylenol after the injury but has since discontinued. She currently has a pocket of swelling at the patella. Allergies cephalexin [From Keflex] Allergy (Intermediate, Verified 02/19/24 10:24) Gastrointestinal Upset [place] And Derivatives Allergy (Intermediate, Verified 02/19/24 10:24) Shortness of Breath nut - unspecified Allergy (Intermediate, Verified 02/19/24 10:24) Swelling oxycodone [From Percocet] Allergy (Intermediate, Verified 02/19/24 10:24) Nausea and Vomiting codeine Allergy (Verified 02/19/24 10:24) Hives HPI HPI Newprob-RT knee pain-Feels like fluid-DOF 02/07/24: Details: Essie is a 58 year old female who presents today for a new problem visit with complaints of right knee pain. She reports that she stepped on a tree root and rolled her ankle, when she fell the right knee landed on the same tree root that cause the fall. DOI: 02/07/24. Right TKA 12/11/21. She reports that the knee is painful, increased pain with ambulation of stairs. reports a clunking in the posterior aspect of the knee with extension. She took tylenol after the injury but has since discontinued. She currently has a pocket of swelling at the patella. [facility] Medical History ADHD Asthma Hypothyroidism GERD (gastroesophageal reflux disease) Morbid obesity Paradoxical vocal cord motion Environmental allergies Personal history of COVID-19 History of blood transfusion CASANDRA on CPAP Insomnia Depression Anxiety Osteoarthritis of right knee Arron's disease Hypertension Surgical History History of sleeve gastrectomy Hx of tonsillectomy History of History of bilateral cataract extraction History of laryngoscopy Hx of colonoscopy History of hysterectomy, supracervical History of back surgery History of cholecystectomy H/O partial thyroidectomy H/O Spinal surgery Social History Household Members: Spouse Housing: House Are you a primary wound care physician to a significant other at home: No Do you presently have visiting nurse or other home services: No Alcohol intake: never Comment: wears a knee brace, aware of trip hazard Patient Tobacco Use Status: Never used Tobacco service: No Current occupational status: employed Current occupation: disability claims Physical Exam Vital Signs: BMI result Body Mass Index 47.1 Extrem Other: 0-130 deg motion and 5/5 with resisted knee extension small palpable defect medial to the patellar tendon no warmth or erythema Results Reviewed Results Reviewed: I personally reviewed relevant radiographs. Right total knee arthroplasty in expected post operative position with no hardware complications or evidence of loosening Assessment & Plan Assessment & Plan (1) S/P knee replacement: Code(s): Z96.659 - Presence of unspecified artificial knee joint Category: Surgical Plan: S/p knee replacement No obvious structural injury after fall except swelling. She is improving and I recommend she continue activity as tolerated. f/u 4 w Orders: Orders XR knee RT 3V Today M25.561 - Pain in right knee Coding Level of Care Code Est Pt Level 3 (15413) Diagnoses S/P knee replacement Z96.659
[2024-02-19 10:20] VITALS: BMI 47.1
== END 2024-02-19 11:26 | disposition home or self-care (01) ==
PROVIDERS: PCP Internal Medicine; Visit Provider Orthopaedic Surgery
DX: Z47.89 Encounter for other orthopedic aftercare (principal); Z96.659 Presence of unspecified artificial knee joint
CPT/HCPCS: 99213

== ENCOUNTER 2024-03-25 13:47 | Outpatient (REF) | payer BC, SELFPAY ==
--- NOTE | ~2024-03-25 | XR_ITS ---
EXAMINATION: XR ANKLE, LEFT CLINICAL INFORMATION: Unspecified left ankle pain. COMPARISON: March 10, 2024. TECHNIQUE: AP, lateral, and mortise views of the left ankle. FINDINGS: No fracture appreciated. Alignment is anatomic. No erosions. Joint spaces appear maintained. Soft tissues appear unremarkable. XR/XR ankle LT min 3V IMPRESSION: Normal plain film examination of the left ankle.
== END 2024-03-25 13:48 | disposition home or self-care (01) ==
LOC: HO.HOSX 13:47
PROVIDERS: PCP Internal Medicine; Visit Provider Orthopaedic Surgery
DX: S82.52XA Displaced fracture of medial malleolus of left tibia, initial encounter for closed fracture (principal)
CPT/HCPCS: 73610

== ENCOUNTER 2024-03-25 13:47 | Outpatient (AMB) | payer BC, SELFPAY ==
--- NOTE | 2024-03-25 13:58 | MHC.OFFVIS ---
Vital Signs 03/25/24 13:59 Height 5 ft Weight 241 lb BMI 47.1 Intake Visit Reasons: O/V RT TKA 11/2021 follow up [place] Intake Note: Essie is a 58 year old female who presents today for a follow up visit with complaints of right knee pain. s/p Right TKA 12/11/21. Patient expresses she is still having problems ambulating up and down stairs and her knee is also clicking more than it used. She brought in her x-ray disk of her left ankle for Dr Gagnon. Allergies cephalexin [From Keflex] Allergy (Intermediate, Verified 03/25/24 13:59) Gastrointestinal Upset [place] And Derivatives Allergy (Intermediate, Verified 03/25/24 13:59) Shortness of Breath nut - unspecified Allergy (Intermediate, Verified 03/25/24 13:59) Swelling oxycodone [From Percocet] Allergy (Intermediate, Verified 03/25/24 13:59) Nausea and Vomiting codeine Allergy (Verified 03/25/24 13:59) Hives HPI HPI O/V RT TKA 11/2021 follow up [place]: Details: Essie is a 58 year old female who presents today for a follow up visit with complaints of right knee pain. s/p Right TKA 12/11/21. Patient expresses she is still having problems ambulating up and down stairs and her knee is also clicking more than it used. She brought in her x-ray disk of her left ankle for Dr Gagnon. COUNTS INCLUDE 234 BEDS AT THE [facility] Medical History ADHD Asthma Hypothyroidism GERD (gastroesophageal reflux disease) Morbid obesity Paradoxical vocal cord motion Environmental allergies Personal history of COVID-19 History of blood transfusion CASANDRA on CPAP Insomnia Depression Anxiety Osteoarthritis of right knee Arron's disease Hypertension Surgical History History of sleeve gastrectomy Hx of tonsillectomy History of History of bilateral cataract extraction History of laryngoscopy Hx of colonoscopy History of hysterectomy, supracervical History of back surgery History of cholecystectomy H/O partial thyroidectomy H/O Spinal surgery Social History Household Members: Spouse Housing: House Are you a primary resident care provider to a significant other at home: No Do you presently have visiting nurse or other home services: No Alcohol intake: never Comment: wears a knee brace, aware of trip hazard Patient Tobacco Use Status: Never used Tobacco service: No Current occupational status: employed Current occupation: disability claims Physical Exam Vital Signs: BMI result Body Mass Index 47.1 Extrem Other: Left ankle with medial malleolar TTP over tip. No effusion full rom Results Reviewed Results Reviewed: I personally reviewed relevant radiographs. Tiny small non displaced fx of tip of medial malleolus Assessment & Plan Assessment & Plan (1) Fx medial malleolus-closed: Code(s): S82.53XA - Displaced fracture of medial malleolus of unspecified tibia, initial encounter for closed fracture Category: Medical Plan: Several weeks s/p left ankle injury. I recommend bood for 6 weeks. We discussed. She will follow up in 6 weeks Orders: Orders XR ankle LT min 3V 03/25/24 M25.579 - Pain in unspecified ankle and joints of unspecified foot Coding Level of Care Code Est Pt Level 3 (49420) Diagnoses Fx medial malleolus-closed S82.53XA
[2024-03-25 13:59] VITALS: BMI 47.1
== END 2024-03-25 15:03 | disposition home or self-care (01) ==
PROVIDERS: PCP Internal Medicine; Visit Provider Orthopaedic Surgery
DX: S82.53XA Displaced fracture of medial malleolus of unspecified tibia, initial encounter for closed fracture (principal)
CPT/HCPCS: 99213

== ENCOUNTER 2024-05-06 14:40 | Outpatient (AMB) | payer BC, SELFPAY ==
--- NOTE | 2024-05-06 14:42 | MHC.OFFVIS ---
Vital Signs 05/06/24 14:43 Height 5 ft Weight 241 lb BMI 47.1 Intake Visit Reasons: OV - 6 weeks per NE Intake Note: Essie is a 58 year old female who presents today for a follow up visit with complaints of right knee pain. s/p Right TKA 12/11/21, She was also being seen for a left medial malleolus fx. Patient states that her right knee is doing great, left knee and calf are in pain due to wearing the boot. Allergies cephalexin [From Keflex] Allergy (Intermediate, Verified 05/06/24 14:49) Gastrointestinal Upset Traverse And Derivatives Allergy (Intermediate, Verified 05/06/24 14:49) Shortness of Breath nut - unspecified Allergy (Intermediate, Verified 05/06/24 14:49) Swelling oxycodone [From Percocet] Allergy (Intermediate, Verified 05/06/24 14:49) Nausea and Vomiting codeine Allergy (Verified 05/06/24 14:49) Hives HPI HPI OV - 6 weeks per NE: Details: Essie is a 58 year old female who presents today for a follow up visit with complaints of right knee pain. s/p Right TKA 12/11/21, She was also being seen for a left medial malleolus fx. Patient states that her right knee is doing great, left knee and calf are in pain due to wearing the boot. [facility] Medical History ADHD Asthma Hypothyroidism GERD (gastroesophageal reflux disease) Morbid obesity Paradoxical vocal cord motion Environmental allergies Personal history of COVID-19 History of blood transfusion CASANDRA on CPAP Insomnia Depression Anxiety Osteoarthritis of right knee Arron's disease Hypertension Surgical History History of sleeve gastrectomy Hx of tonsillectomy History of History of bilateral cataract extraction History of laryngoscopy Hx of colonoscopy History of hysterectomy, supracervical History of back surgery History of cholecystectomy H/O partial thyroidectomy H/O Spinal surgery Social History Household Members: Spouse Housing: House Are you a primary career services officer to a significant other at home: No Do you presently have visiting nurse or other home services: No Alcohol intake: never Comment: wears a knee brace, aware of trip hazard Patient Tobacco Use Status: Never used Tobacco service: No Current occupational status: employed Current occupation: disability claims Physical Exam Vital Signs: BMI result Body Mass Index 47.1 Extrem Other: no ttp medial malleolus left ankle Assessment & Plan Assessment & Plan (1) Fx medial malleolus-closed: Code(s): S82.53XA - Displaced fracture of medial malleolus of unspecified tibia, initial encounter for closed fracture Category: Medical Plan: non displaced and very small fracture that was treated with a boot. She has no pain now. If pain returns will foloow up Coding Level of Care Code Est Pt Level 3 (68954) Diagnoses Fx medial malleolus-closed S82.53XA
[2024-05-06 14:43] VITALS: BMI 47.1
== END 2024-05-06 15:01 | disposition home or self-care (01) ==
PROVIDERS: PCP Internal Medicine; Visit Provider Orthopaedic Surgery
DX: S82.52XA Displaced fracture of medial malleolus of left tibia, initial encounter for closed fracture (principal)
CPT/HCPCS: 99213

== ENCOUNTER → 2024-05-06 14:40 | Outpatient (BNVA) | payer BC, SELFPAY | PROVIDERS: PCP Internal Medicine; Visit Provider Orthopaedic Surgery ==

== ENCOUNTER 2025-04-13 09:52 | Outpatient (AMB) | payer BC, SELFPAY ==
--- OUTSIDE RECORDS SUMMARY | 2025-04-07 23:59 | XMS_ITS | Continuity of Care Document ---
Author Organization [facility] Address [address] [place] [address]- Care Team Providers Care Gardening Manager Name Role Phone Morteza JESUS, Abelardo W Primary Care Physician Encounter [facility] Date(s): 03/08/25 - 04/07/25 [facility] [address], [place] [address] Encounter Type: Triage Allergies, Adverse Reactions, Alerts Substance Criticality Severity Reaction Reaction Severity Status codeine-guaifenesin 1 Active Nuts SOB SWELLING Active Keflex gi upset Active [place] SOB swelling Active Percocet 5/325 gi upset Activ e 1Hives and itching Immunizations Given and Recorded Vaccine Date Status Refusal Reason tetanus/diphtheria/pertussis, acel(Tdap) 12/25/24 Recorded tetanus/diphtheria/pertussis, acel(Tdap) 12/27/14 Given influenza virus vaccine, inactivated 09/10/21 Mic rded influenza virus vaccine, inactivated 06/19/20 Mic rded influenza virus vaccine, inactivated 08/07/19 Mic rded influenza virus vaccine, inactivated 1 08/19/18 Re corded influenza virus vaccine, inactivated 07/29/18 Mic rded influenza virus vaccine, inactivated 2 08/14/17 Gi dania influenza virus vaccine, inactivated 3 07/03/17 Gi dania influenza virus vaccine, inactivated 07/15/16 Give n influenza virus vaccine, inactivated 08/02/15 Give n influenza virus vaccine, inactivated 06/15/14 Give n SARS-CoV-2 (COVID-19) mRNA-1273 vaccine 09/10/21 R ecorded SARS-CoV-2 (COVID-19) mRNA BNT-162b2 vac 02/05/21 Recorded SARS-CoV-2 (COVID-19) mRNA BNT-162b2 vac 01/15/21 Recorded pneumococcal 23-valent vaccine 02/20/18 Given 1Location History: [facility] 2Result Comment: [08/14/2017] [facility] [id number] 3Result Comment: [07/03/2017] [id number] Medications Adderall 10 mg oral tablet See Instructions, 1 tablet By Mouth at noon time., # 30 each, 0 Refills, Maintenance, 03/16/25 4:20:00 PM EDT, Tablet, [facility], Partial fill upon patient request if the prescription is for aschedule II opioid drug., 1 tablet By Mouth at noon time., 03/18/25, 152, cm, 02/16/25 13:32:00 EDT, Height, 111, kg, 04/14/24 16:48:00 EDT, Dry Weight Start Date: 03/16/25 Status: Ordered Quantity: 30.0 Unit: each Repeat number: 1 Adderall XR 30 mg oral capsule, extended release 1 capsule = 30 mg, By Mouth, Daily in AM, csa, # 30 capsule, 0 Refills, Maintenance, 03/16/25 4:20:00PM EDT, ER Capsule, [facility], Partial fill upon patient request if the prescription is for a schedule II opioid drug., 1 capsule By Mouth Daily in AM,x30 days,Instr:csa, 03/25/25, 152, cm, 02/16/25 13:32:00 EDT, Height, 111, kg, 04/14/24 16:48:00 EDT, Dry Weight Start Date: 03/16/25 Stop Date: 04/15/25 Status: Ordered Quantity: 30.0 Unit: capsule Repeat number: 1 Indications: Other regional intermodal truck driver (current) drug therapy; amLODIPine 5 mg oral tablet 1 tablet = 5 mg, By Mouth, Daily, # 90 tablet, 3 Refills, Maintenance, 10/01/24 4:30:00 PM EST, Tablet, [facility], Partial fill upon patient request if the prescription is for a schedule II opioid drug., 152, cm, 10/01/24 10:43:00 EST, Height, 111, kg, 04/14/24 16:48:00 EDT, Dry Weight Start Date: 10/01/24 Stop Date: 09/26/25 Status: Ordered Quantity: 90.0 Unit: tablet Repeat number: 4 AutoCPAP 9-18 with heated humidification AutoCPAP 9-18 with heated humidification, See Instructions, # 1 each, Refills 0, Tot. Refills 0, Maintenance, use overnight and naps from [facility], 11/30/20 4:40:00 PM EDT, Compound Start Date: 11/30/20 Status: Ordered Quantity: 1.0 Unit: each Repeat number: 1 Breo Ellipta 100 mcg-25 mcg/inh inhalation powder 1 inhalation, Inhalation, Daily, at the same time every day, # 30 each, 2 Refills, Maintenance, 10/13/24 1:44:00 PM EST, Powder, [facility], Partial fill upon patient request if the prescription is for a schedule II opioid drug., 1 inhalation Inhalation Daily,x30 days,Instr:at the same time e very day, 152, cm, 10/13/24 13:21:00 EST, Height, 111, kg, 04/14/24 16:48:00 EDT, Dry Weight Start Date: 10/13/24 Stop Date: 01/11/25 Status: Ordered Quantity: 30.0 Unit: each Repeat number: 3 esomeprazole 40 mg oral enteric coated capsule 1 capsule, By Mouth, Daily, # 30 capsule, 5 Refills, Maintenance, 03/09/25 11:37:00 AM EDT, [facility], 152, cm, 02/16/25 13:32:00 EDT, Height, 111, kg, 04/14/24 16:48:00 EDT, Dry Weight Start Date: 03/09/25 Status: Ordered Quantity: 30.0 Unit: capsule Repeat number: 1 Estradiol 0 Refills, Maintenance, 08/09/24 8:56:00 AM EST, Partial fill upon patient request if the prescription is for a schedule II opioid drug. Start Date: 08/09/24 Status: Ordered Repeat number: 1 hydrochlorothiazide 25 mg oral tablet 25 mg, 1, tablet, By Mouth, Daily, # 90 tablet, Refills 1, Tot. Refills 1, Maintenance, 02/16/25 1:47:00 PM EDT, Route to Pharmacy Electronically, [facility], Partial fill upon patient request if the prescription is for a schedule II opioid drug., 152, cm, 02/16/25 13:32:00 EDT, Height, 111, kg, 04/14/24 16:48:00 EDT, Dry Weight Start Date: 02/16/25 Stop Date: 08/15/25 Status: Ordered Quantity: 90.0 Unit: tablet Repeat number: 2 hydrOXYzine hydrochloride 50 mg oral tablet 1 tablet = 50 mg, By Mouth, 2 times a day, # 14 tablet, 0 Refills, Soft Stop, 03/28/25 2:48:00 PM EDT, Tablet, [facility], Partial fill upon patient request if the prescription is for a schedule II opioid drug., 152, cm, 03/28/25 14:17:00 EDT, Height, 120.8, kg, 03/23/25 9:32:00 EDT, Dry Weight Start Date: 03/28/25 Stop Date: 04/04/25 Status: Ordered Quantity: 14.0 Unit: tablet Repeat number: 1 levalbuterol 45 mcg/inh inhalation aerosol 1 puffs, Inhalation, Every 4 hours, PRN for wheezing, # 15 Gm, 0 Refills, Maintenance, 06/21/24 3:19:00 PM EDT, Aerosol, Partial fill upon patient request if the prescription is for a schedule II opioid drug. Start Date: 06/21/24 Status: Ordered Quantity: 15.0 Unit: g Repeat number: 1 levocetirizine 5 mg oral tablet 1 tablet = 5 mg, By Mouth, Daily in PM, PRN allergies/congestion, # 30 tablet, 5 Refills, Maintenance, 10/12/24 2:11:00 PM EST, Tablet, [facility], Partial fill upon patient request if the prescription is for a schedule II opioid drug., 1 tablet By Mouth Daily in PM,x30 days,PRN:allergies/congestion, 152, cm, 10/01/24 10:43:00 EST, Height, 111, kg, 04/14/24 16:48:00 EDT, Dry Weight Start Date: 10/12/24 Stop Date: 04/10/25 Status: Ordered Quantity: 30.0 Unit: tablet Repeat number: 6 levothyroxine 0.112 mg oral tablet 1 tablet, By Mouth, Daily, # 90 tablet, 3 Refills, Maintenance, 10/01/24 4:30:00 PM EST, [facility], 152, cm, 10/01/24 10:43:00 EST, Height, 111, kg, 04/14/24 16:48:00 EDT, Dry Weight Start Date: 10/01/24 Status: Ordered Quantity: 90.0 Unit: tablet Repeat number: 4 lisinopril 40 mg oral tablet 1 tablet = 40 mg, By Mouth, Daily, # 90 tablet, 1 Refills, Maintenance, 11/09/24 5:05:00 PM EST, Tablet, [facility], Partial fill upon patient request if the prescription is for a schedule II opioid drug., 152, cm, 10/13/24 13:21:00 EST, Height, 111, kg, 04/14/24 16:48:00 EDT, Dry Weight Start Date: 11/09/24 Stop Date: 05/08/25 Status: Ordered Quantity: 90.0 Unit: tablet Repeat number: 2 LORazepam 0.5 mg oral tablet 1 tablet = 0.5 mg, By Mouth, 2 times a day, PRN as needed for anxiety, # 28 tablet, 0 Refills, SoftStop, 04/18/22 4:15:00 PM EDT, Tablet, [facility], Partial fill upon patient request if the prescription is for a schedule II opioid drug., 152, cm, 04/18/22 15:44:00 EDT, Height Start Date: 04/18/22 Stop Date: 05/02/22 Status: Ordered Quantity: 28.0 Unit: tablet Repeat number: 1 tiZANidine 2 mg oral tablet 2 mg, 1, tablet, By Mouth, 2 times a day, PRN, # 60 tablet, Refills 1, Tot. Refills 1, Maintenance,as needed for muscle spasm, 01/24/25 2:12:00 PM EDT, Route to Pharmacy Electronically, [facility], Partial fill upon patient request if the prescription is for a schedule II opioid drug., 152,cm, 01/24/25 13:49:00 EDT, Height, 111, kg, 04/14/24 16:48:00 EDT, Dry Weight Start Date: 01/24/25 Stop Date: 03/25/25 Status: Ordered Quantity: 60.0 Unit: tablet Repeat number: 2 traZODone 50 mg oral tablet 0.5, tablet, By Mouth, Daily at bedtime, PRN, # 45 tablet, Refills 3, Tot. Refills 3, Maintenance, NEEDED FOR INSOMNIA, 10/01/24 4:30:00 PM EST, Route to Pharmacy Electronically, [facility], 152, cm, 10/01/24 10:43:00 EST, Height, 111, kg, 04/14/24 16:48:00 EDT, Dry Weight Start Date: 10/01/24 Stop Date: 09/26/25 Status: Ordered Quantity: 45.0 Unit: tablet Repeat number: 4 valacyclovir 1 gm oral tablet 2 tablet, By Mouth, Every 12 hours, PRN NEEDED FOR, HERPES FLARE-UPS., # 4 tablet, 11 Refills, Maintenance, 11/03/23 2:01:00 PM EST, [facility], 152, cm, 10/06/23 12:21:00 EST, Height, 111,kg, 08/06/23 10:18:00 EST, Dry Weight Start Date: 11/03/23 Status: Ordered Quantity: 4.0 Unit: tablet Repeat number: 1 venlafaxine 37.5 mg oral capsule, extended release 1 capsule = 37.5 mg, By Mouth, Daily, # 30 capsule, 2 Refills, Maintenance, 11/03/24 2:30:00 PM EST,ER Capsule, [facility], Partial fill upon patient request if the prescription is for a schedule II opioid drug., 152, cm, 10/13/24 13:21:00 EST, Height, 111, kg, 04/14/24 16:48:00 EDT, Dry Weight Start Date: 11/03/24 Stop Date: 02/01/25 Status: Ordered Quantity: 30.0 Unit: capsule Repeat number: 3 Problem List Condition Confirmation Course Effective Dates Status Health Status Informant BRONWYN positive, high titer Confirmed Active Anxiety 1 Confirmed Active Allergic rhinoconjunctivitis of both eyes Confirmed Active BPPV (benign paroxysmal positional vertigo), up and to the left. Confirmed Active Osteoarthritis of both feet Confirmed Active Osteoarthritis of both knees S/P right total knee arthroplasty Confirmed Active Degenerative arthritis of cervical spine Confirmed 05/31/22 Active Chronic fatigue syndrome Confirmed Active Abnormal kidney on CT scan and US. 2 Confirmed 02/01/16 Active DDD (degenerative disc disease), lumbar Confirmed 06/17/23 Active Bilateral leg edema Confirmed Active Globus sensation Confirmed Active Bilateral foot pain-EMG(06/28/2019 normal. Confirmed Active Hoarseness-flexible laryngoscopy (09/2019)-WNL-except erythematous scarring, mild hypertrophy of base of tongue, paradoxical vocal cord motion. 3 Confirmed Active Hypertension Confirmed Active Hypothyroidism Confirmed Active Brain fog (post covid in 2021) Confirmed Active Secondary insomnia Confirmed Active Moderate persistent asthma 4 Confirmed Active Morbid obesity 5 Confirmed Active Multinodular goiter S/P left thyroidectmy 6 Confirmed Active CASANDRA on CPAP Confirmed Active Periodic limb movement Confirmed Active History of rectal bleeding, S/P colonoscopy in 2010, negative, no recurrence Confirmed 2010 Active Restless leg syndrome Confirmed Active Rosacea Confirmed Active Severe obesity Confirmed Active Recurrent major depression-severe Confirmed Active Vitreous floaters of right eye 7 Confirmed Active 1Duloxetine discontinued due to exhaustion with resolution of symptoms. 2US of kidney showing left sided scarrring. Asymptomatic. 3Seen by Dr. Lo-ENT. 4Advair-leg cramps, symbicort-facial redness and swelling. 5Evaluated by Bariatic Surgeon-Plan of sleeve gastrectomy. 6Us of the thyroid oin 2012-No suspicious nodules 7Seeing Dr. Louise. Social History Social History Type Response Smoking Status Never (less than 100 in lifetime) entered on: 05/13/24 Sex Sex Representation Female (finding) Patient Care team information Care Team Personnel Name: Ame Nicolas RN Position: [facility] RN Member Role: Primary Care Nurse Name: Abelardo Pro MD Position: [facility] Physician - Primary Care Member Role: PCP Address: [address] [place] [address] [place] [address]- Telecom: Care Team Related Persons Name: PERNELL WHITE Name: PERNELL JORDAN Name: NILTON PITTMAN Name: NILTON PITTMAN Name: ZOE PITTMAN Insurance Providers Guarantor name: ALIZE LUCERO [facility] Plan Information #: 1 Payer: [employer] PPO Payer Identifier: WILFRID Member Number: [id number] Group Number: [id number] Subscriber Identifier: [id number] Relationship to Subscriber: self Coverage Type: NA Coverage Verification Date: Telecom: Address:
--- OUTSIDE RECORDS SUMMARY | 2025-04-07 23:59 | XMS_ITS | Continuity of Care Document ---
Author Organization [facility] Address [address] [place] [address]- Care Team Providers Care Professor Of Geology Name Role Phone Morteza JESUS, Abelardo W Primary Care Physician [id number] Date(s): 12/16/24 - 04/07/25 [facility] [address] [place] [address]- Attending Physician: Susana Siddiqui Admitting Physician: Susana Siddiqui Referring Physician: Susana Siddiqui Encounter Type: Pre-OutPatient One Time Allergies, Adverse Reactions, Alerts Substance Criticality Severity Reaction Reaction Severity Status codeine-guaifenesin 1 Active Keflex gi upset Active [place] SOB swelling Active Nuts SOB SWELLING Active Percocet 5/ gi upset Activ e 1Hives and itching [...] 1Location History: [facility] 2Result Comment: [08/14/2017] [facility] [id number] 3Result Comment: [07/03/2017] [id number] Medications Adderall 10 mg oral tablet See Instructions, 1 tablet By Mouth at noon time., # 30 each, 0 Refills, Maintenance, 03/16/25 4:20:00 PM EDT, Tablet, [facility], Partial fill upon patient request [...] Refills, Maintenance, 03/16/25 4:20:00PM EDT, ER Capsule, [facility], Partial fill upon patient request if the prescription is for a schedule II opioid drug., 1 capsule By Mouth Daily in AM,x30 days,Instr:csa, 03/25/25, 152, cm, 02/16/25 13:32:00 EDT, Height, 111, kg, 04/14/24 16:48:00 EDT, Dry Weight Start Date: 03/16/25 Stop Date: 04/15/25 Status: Ordered Quantity: 30.0 Unit: capsule Repeat number: 1 Indications: Other custodial (current) drug therapy; amLODIPine 5 mg oral tablet 1 tablet = 5 mg, By Mouth, Daily, # 90 tablet, 3 Refills, Maintenance, 10/01/24 4:30:00 PM EST, Tablet, [facility], Partial fill upon patient request [...] Refills, Maintenance, 10/13/24 1:44:00 PM EST, Powder, [facility], Partial fill upon patient request [...] 5 Refills, Maintenance, 03/09/25 11:37:00 AM EDT, [facility], 152, cm, 02/16/25 13:32:00 EDT, [...] 1:47:00 PM EDT, Route to Pharmacy Electronically, [facility], Partial fill upon patient [...] Soft Stop, 03/28/25 2:48:00 PM EDT, Tablet, [facility], Partial fill upon patient [...] Refills, Maintenance, 10/12/24 2:11:00 PM EST, Tablet, [facility], Partial fill upon patient [...] 3 Refills, Maintenance, 10/01/24 4:30:00 PM EST, [facility], 152, cm, 10/01/24 10:43:00 EST, Height, 111, kg, 04/14/24 16:48:00 EDT, Dry Weight Start Date: 10/01/24 Status: Ordered Quantity: 90.0 Unit: tablet Repeat number: 4 lisinopril 40 mg oral tablet 1 tablet = 40 mg, By Mouth, Daily, # 90 tablet, 1 Refills, Maintenance, 11/09/24 5:05:00 PM EST, Tablet, [facility], Partial fill upon patient request [...] Refills, SoftStop, 04/18/22 4:15:00 PM EDT, Tablet, [facility], Partial fill upon patient request [...] 2:12:00 PM EDT, Route to Pharmacy Electronically, [facility], Partial fill upon patient request [...] 4:30:00 PM EST, Route to Pharmacy Electronically, [facility], 152, cm, 10/01/24 10:43:00 EST, Height, 111, kg, 04/14/24 16:48:00 EDT, Dry Weight Start Date: 10/01/24 Stop Date: 09/26/25 Status: Ordered Quantity: 45.0 Unit: tablet Repeat number: 4 valacyclovir 1 gm oral tablet 2 tablet, By Mouth, Every 12 hours, PRN NEEDED FOR, HERPES FLARE-UPS., # 4 tablet, 11 Refills, Maintenance, 11/03/23 2:01:00 PM EST, [facility], 152, cm, 10/06/23 12:21:00 EST, Height, 111,kg, 08/06/23 10:18:00 EST, Dry Weight Start Date: 11/03/23 Status: Ordered Quantity: 4.0 Unit: tablet Repeat number: 1 venlafaxine 37.5 mg oral capsule, extended release 1 capsule = 37.5 mg, By Mouth, Daily, # 30 capsule, 2 Refills, Maintenance, 11/03/24 2:30:00 PM EST,ER Capsule, [facility], Partial fill upon patient request [...] Team Personnel Name: Ame Nicolas RN Position: [facility] RN Member Role: Primary Care Nurse Name: Morteza JESUS, Abelardo Benites Position: [facility] Physician - Primary Care Member Role: PCP Address: [address] [place] [address] [facility] [place] [address] [place] Telecom: Care Team Related Persons Name: PERNELL WHITE Name: PERNELL JORDAN Name: NILTON PITTMAN Name: NILTON PITTMAN Name: ZOE PITTMAN Insurance Providers Guarantor name: ALIZE JAZMINE [facility] Plan Information #: 1 Payer: [email or web address] O Payer Identifier: NA Member Number: [id number] Group Number: [id number] Subscriber Identifier: [id number] Relationship to Subscriber: self Coverage Type: NA Coverage Verification Date: NA Telecom: NA Address:
--- OUTSIDE RECORDS SUMMARY | 2025-04-12 23:59 | XMS_ITS | Continuity of Care Document ---
Author Organization [facility] [place] [address] [place] [address]- Care Team Providers Care Broke Worker Name Role Phone Morteza JESUS, Abelardo W Primary Care Physician Encounter 04/05/25 - 04/12/25 [facility] [address], [facility] [address] [place] [address]- Attending Physician: Maryan Díaz Admitting Physician: Maryan Díaz Referring Physician: Maryan Díaz Encounter Type: OutPatient One Time Allergies, Adverse Reactions, Alerts Substance Criticality Severity Reaction Reaction Severity Status codeine-guaifenesin 1 Active Keflex gi upset Active [place] SOB swelling Active Nuts SOB SWELLING Active Percocet 5/325 gi upset Activ e [...] 1Location History: [place] 2Result Comment: [08/14/2017] [facility] [id number] 3Result Comment: [07/03/2017] [id number] Medications Adderall 10 mg oral tablet See Instructions, 1 tablet By Mouth at noon time., # 30 each, 0 Refills, Maintenance, 03/16/25 4:20:00 PM EDT, Tablet, [facility], Partial fill upon patient request [...] Refills, Maintenance, 03/16/25 4:20:00PM EDT, ER Capsule, [facility], Partial fill upon patient request if the prescription is for a schedule II opioid drug., 1 capsule By Mouth Daily in AM,x30 days,Instr:csa, 03/25/25, 152, cm, 02/16/25 13:32:00 EDT, Height, 111, kg, 04/14/24 16:48:00 EDT, Dry Weight Start Date: 03/16/25 Stop Date: 04/15/25 Status: Ordered Quantity: 30.0 Unit: capsule Repeat number: 1 Indications: Other detention (current) drug therapy; amLODIPine 5 mg oral tablet 1 tablet = 5 mg, By Mouth, Daily, # 90 tablet, 3 Refills, Maintenance, 10/01/24 4:30:00 PM EST, Tablet, [facility], Partial fill upon patient request [...] Refills, Maintenance, 10/13/24 1:44:00 PM EST, Powder, [facility], Partial fill upon patient request [...] 5 Refills, Maintenance, 03/09/25 11:37:00 AM EDT, [facility], 152, cm, 02/16/25 13:32:00 EDT, [...] 1:47:00 PM EDT, Route to Pharmacy Electronically, [facility], Partial fill upon patient request [...] Soft Stop, 03/28/25 2:48:00 PM EDT, Tablet, [facility], Partial fill upon patient request [...] Refills, Maintenance, 10/12/24 2:11:00 PM EST, Tablet, [facility], Partial fill upon [...] 3 Refills, Maintenance, 10/01/24 4:30:00 PM EST, [facility], 152, cm, 10/01/24 10:43:00 EST, Height, 111, kg, 04/14/24 16:48:00 EDT, Dry Weight Start Date: 10/01/24 Status: Ordered Quantity: 90.0 Unit: tablet Repeat number: 4 lisinopril 40 mg oral tablet 1 tablet = 40 mg, By Mouth, Daily, # 90 tablet, 1 Refills, Maintenance, 11/09/24 5:05:00 PM EST, Tablet, [facility], Partial fill upon patient request [...] Refills, [facility]Stop, 04/18/22 4:15:00 PM EDT, Tablet, [facility], Partial fill upon patient request [...] 2:12:00 PM EDT, Route to Pharmacy Electronically, [facility], Partial fill upon patient request [...] 4:30:00 PM EST, Route to Pharmacy Electronically, [facility], 152, cm, 10/01/24 10:43:00 EST, Height, 111, kg, 04/14/24 16:48:00 EDT, Dry Weight Start Date: 10/01/24 Stop Date: 09/26/25 Status: Ordered Quantity: 45.0 Unit: tablet Repeat number: 4 valacyclovir 1 gm oral tablet 2 tablet, By Mouth, Every 12 hours, PRN NEEDED FOR, HERPES FLARE-UPS., # 4 tablet, 11 Refills, Maintenance, 11/03/23 2:01:00 PM EST, [facility], 152, cm, 10/06/23 12:21:00 EST, Height, 111,kg, 08/06/23 10:18:00 EST, Dry Weight Start Date: 11/03/23 Status: Ordered Quantity: 4.0 Unit: tablet Repeat number: 1 venlafaxine 150 mg oral capsule, extended release 1 capsule, By Mouth, Daily, # 90 capsule, 0 Refills, Maintenance, 04/12/25 2:53:00 PM EDT, [facility], 152, cm, 04/05/25 10:30:00 EDT, Height, 120.8, kg, 03/23/25 9:32:00 EDT, Dry Weight Start Date: 04/12/25 Status: Ordered Quantity: 90.0 Unit: capsule Repeat number: 1 Problem List Condition Confirmation Course Effective Dates [...] oin 2012-No suspicious nodules 7Seeing Dr. Louise. Results Radiology Reports * Exam Date Time Procedure Performing Provider Status 04/05/25 11:07 AM Ankle Min 3 Views Left A [facility] (Verified) Notes: (Ankle Min 3 Views Left) Reason For Exam: Trauma;Trauma RESULT: Ankle Min 3 Views Left Ankle Min 3 Views Left Reason: Trauma COMPARISON: None. FINDINGS: Again seen is linear essentially nondisplaced fracture in the base of the left fifth metatarsal. Intact ankle mortise and talar dome. No arthritic changes. Moderate soft tissue swelling near medial malleolus. IMPRESSION: Essentially nondisplaced fracture in the base of the left fifth metatarsal as described above. Probable moderate soft tissue swelling near medial malleolus. WSN: [id number] Ordering Physician: Maryan Sagastume Dictated By: Víctor Vivas MD, V Dictated Date/Time: 04/05/25 2:16 pm Reviewed By: Víctor iVvas MD, V Signed By: Víctor Vivas MD, V Signed Date/Time: 04/05/25 2:16 pm Transcribed By: EAMON Transcribed Date/Time: 04/05/25 2:15 pm * Exam Date Time Procedure Performing Provider Status 04/05/25 11:07 AM Foot Min 3 Views Left Au [facility] (Verified) Notes: (Foot Min 3 Views Left) Reason For Exam: Trauma;Trauma RESULT: Foot Min 3 Views Left Foot Min 3 Views Left Reason: Trauma COMPARISON: Multiple priors with the most recent dated 07/15/2024. FINDINGS: Minimally displaced fracture involving the base of the left fifth metatarsal with minimal soft tissue swelling nearby. No arthritic changes. Normal soft tissues. IMPRESSION: Minimally displaced fracture involving the base of the left fifth metatarsal with minimal soft tissue swelling nearby. An actionable message ([place]) has been communicated via the Traveler | VIP system on 04/05/2025 2:14 PM, Message ID [id number]. WSN: [id number] Ordering Physician: Maryan Sagastume Dictated By: Víctor Vivas MD, V Dictated Date/Time: 04/05/25 2:14 pm Reviewed By: Víctor Vivas MD, V Signed By: Víctor Vivas MD, V Signed Date/Time: 04/05/25 2:14 pm Transcribed By: EAMON Transcribed Date/Time: 04/05/25 2:13 pm * Exam Date Time Procedure Performing Provider Status 04/05/25 11:07 AM Hand Min 3 Views Left Au th (Verified) Notes: (Hand Min 3 Views Left) Reason For Exam: Trauma;Trauma RESULT: Hand Min 3 Views Left Hand Min 3 Views Left, 3 views Reason: Trauma COMPARISON: None. FINDINGS: No fractures or bone lesions. No arthritic changes. Normal soft tissues. IMPRESSION: No acute osseous abnormality seen involving the left hand. WSN: [id number] Ordering Physician: Maryan Sagastume Dictated By: Víctor Vivas MD, V Dictated Date/Time: 04/05/25 2:10 pm Reviewed By: Víctor Viavs MD, V Signed By: Víctor Vivas MD, V Signed Date/Time: 04/05/25 2:10 pm Transcribed By: EAMON Transcribed Date/Time: 04/05/25 2:10 pm Social History Social History Type Response Smoking Status Never (less than 100 in lifetime) entered on: 05/13/24 Sex Sex Representation Female (finding) Patient Care team information Care Team Personnel Name: Ame Nicolas RN Position: [facility] RN Member Role: Primary Care Nurse Name: Abelardo Pro MD Position: [facility] Physician - Primary Care Member Role: PCP Address: [address] [place] [address] Telecom: Care Team Related Persons Name: PERNELL WHITE Name: PERNELL JORDAN Name: NILTON PITTMAN Name: NILTON PITTMAN Name: ZOE PITTMAN Insurance Providers Guarantor name: [facility] Health Plan Information #: 1 Payer: [facility] Payer Identifier: NA Member Number: [id number] Group Number: [id number] Subscriber Identifier: [id number] Relationship to Subscriber: self Coverage Type: NA Coverage Verification Date: NA Telecom: Address:"
--- NOTE | 2025-04-13 10:03 | MHC.OFFVIS ---
Vital Signs 04/13/25 10:21 Height 5 ft Weight 241 lb BMI 47.1 Intake Visit Reasons: UC f/u Fx at the base of the 5th metatarsal Intake Note: Essie is a 60 year old female who presents today for an urgent care follow up a 5th MT fracture, DOI 04/03/25. Patient was seen at [facility] urgent care in [place]. She declined walking boot at due to having one at home. Today patient reports she is having constant pain at the lateral aspect of her foot. She complains of bruising from the 5th metatarsal to the 2nd metatarsal. She states numbness and tingling when foot is in a hanging position. She is taking Advil for pain, however this provides minimal relief. Denies any other previous treatment. Allergies cephalexin (From Keflex) Allergy (Intermediate, Verified 04/13/25 10:23) Gastrointestinal Upset Leslie And Derivatives Allergy (Intermediate, Verified 04/13/25 10:23) Shortness of Breath nut - unspecified Allergy (Intermediate, Verified 04/13/25 10:23) Swelling oxycodone (From Percocet) Allergy (Intermediate, Verified 04/13/25 10:23) Nausea and Vomiting codeine Allergy (Verified 04/13/25 10:23) Hives HPI HPI UC f/u Fx at the base of the 5th metatarsal: Details: 60-year-old female presents to the office today for an injury she sustained to her left foot on 03/2025. She states she tripped and fell injuring the left foot but she also injured her left hand. She also scraped up the right knee. She has a previous right total knee arthroplasty in 2022. She was seen at an urgent care where x-rays were obtained resulting in a fracture of the base of the 5th metatarsal. X-rays of the left hand were negative. She had a boot at home that she decided to use in Ms. Borrowing a kneeling scooter. She has been minimally weight-bearing. She presents for ortho eval today. [facility] Medical History ADHD Asthma Hypothyroidism GERD (gastroesophageal reflux disease) Morbid obesity Paradoxical vocal cord motion Environmental allergies Personal history of COVID-19 History of blood transfusion CASANDRA on CPAP Insomnia Depression Anxiety Osteoarthritis of right knee Arron's disease Hypertension Surgical History History of sleeve gastrectomy Hx of tonsillectomy History of History of bilateral cataract extraction History of laryngoscopy Hx of colonoscopy History of hysterectomy, supracervical History of back surgery History of cholecystectomy H/O partial thyroidectomy H/O Spinal surgery Social History Household Members: Spouse Housing: House Are you a primary landcare facilitator to a significant other at home: No Do you presently have visiting nurse or other home services: No Alcohol intake: never Comment: wears a knee brace, aware of trip hazard Patient Tobacco Use Status: Never used Tobacco service: No Current occupational status: employed Current occupation: disability claims Review of Systems Const All systems reviewed & are unremarkable except as noted in HPI and below Physical Exam Vital Signs: BMI result Body Mass Index 47.1 Const General: cooperative and no acute distress Orientation/consciousness: patient oriented x3 Resp Effort & Inspection: normal respiratory effort and able to speak in complete sentences Cardio Peripheral pulses: Peripheral pulses 2+ throughout Neuro General: patient oriented x3 Extrem Other: Left foot skin intact. There is some bruising of the lateral edge of the left foot. There is tenderness at the base of the 5th metatarsal. Sensation intact. EHL intact. No pain along the mediolateral malleolus. Neurovascularly intact. Office Procedures AMB Fracture Care Fracture Billing Code: Fracture Billing Code Results Reviewed Results Reviewed: X-rays of the left foot obtained in the office today and reviewed by me show a minimally displaced fracture at the base of the 5th metatarsal. X-rays of the left hand obtained in the office today and reviewed by me are negative for any acute or chronic abnormalities. No fractures or dislocations. Assessment & Plan Assessment & Plan (1) Fracture of fifth metatarsal bone of left foot: Code(s): S92.352A - Displaced fracture of fifth metatarsal bone, left foot, initial encounter for closed fracture Category: Medical (2) Left thumb sprain: Code(s): S63.602A - Unspecified sprain of left thumb, initial encounter Category: Medical Plan Patient was given a new tall walking boot. Based on her imaging feel as though the fracture is more consistent with a pseudo Stanley. She can weightbear as tolerated with the boot on. She can remove for hygiene. I did stress the importance of elevation above heart level. As for her left hand I do not see any fractures or dislocations. I did fit her for a left Velcro thumb spica splint which she should wear with activities and sleeping. She should come out of the splint to work on range of motion. I will see her back in 6 weeks with repeat x-rays of the left foot. I can re-evaluate her left wrist at that time if she continues to have discomfort. All questions answered today. Orders: Orders XR foot LT min 3V Today M79.672 - Pain in left foot XR hand LT min 3V Today M79.642 - Pain in left hand Coding Level of Care Code Est Pt Level 3 (33649) Complex EM visit Add On G2211 Diagnoses Fracture of fifth metatarsal bone of left foot S92.352A Left thumb sprain S63.602A CPT Codes Fracture Care - Fracture Billing Code: Fracture Billing Code ([id number])
[2025-04-13 10:21] VITALS: BMI 47.1
--- OUTSIDE RECORDS SUMMARY | 2025-04-13 10:34 | XMS_ITS | Clinical Summary ---
Author Organization [facility] Address [address] [place] [address] Care Team Providers Care Agricultural Engineer Name Role Phone Abelardo Pro Primary Care Provider [phone] Allergies Active Allergy Reactions Criticality Noted Date Comments Codeine Unknown 10/14/2023 Cephalexin Vomiting 10/14/2023 Peanut Unknown 10/14/2023 Oxycodone-Acetaminophen Nausea 10/14/2023 Tree Nut Unknown 10/14/2023 Medications hydroCHLOROthiazide (HYDRODIURIL) 12.5 mg tablet Take 12.5 mg by mouth once a day. Active LISINOPRIL ORAL Take 40 mg by mouth. Active triamcinolone (Nasacort Allergy) 55 mcg nasal inhaler Administer 2 sprays into each nostril once a day. Active venlafaxine HCl (VENLAFAXINE ORAL) Take by mouth. Total is 225mg Active levothyroxine sodium (LEVOTHYROXINE, BULK, MISC) 112 mcg. Active levocetirizine dihydrochloride (LEVOCETIRIZINE ORAL) Take 5 mg by mouth. Active traZODone (DESYREL) 25 mg tablet Take 50 mg by mouth nightly. Active EPINEPHrine (EPIPEN) 0.3 mg/0.3 mL injection syringe Inject 0.3 mg into the outer thigh muscle as directed as needed for anaphylaxis. Active valACYclovir (VALTREX) 1 gram tablet Take 1,000 mg by mouth 3 times a day. Active esomeprazole (NexIUM) 40 mg capsule Take 40 mg by mouth every morning before breakfast. Active azelastine (ASTELIN) 137 mcg (0.1 %) nasal spray Administer 1 spray into each nostril 2 times a day. 30 mL 5 12/09/19 Active levalbuterol (Xopenex HFA) 45 mcg/actuation inhaler Inhale 1-2 puffs by mouth every 6 hours as needed for wheezing or shortness of breath. Active levalbuterol (XOPENEX HFA) 45 mcg/actuation inhalerIndications: Moderate persistent asthma without complication (HCC) Inhale 1-2 puffs by mouth every 6 hours as needed for wheezing. 15 g 1 12/14/19 Active Active Problems Problem Noted Date Diagnosed Date Adverse reaction to food, subsequent encounter 0 10/14/2023 Encounters Date Type Department Care Team Description 03/23/2025 myChart Message [facility] [address] [facility] Allergy/Immunology [address] [place] [address] Janae Ramsay, DO Swollen and itchy 02/09/2025 myChart Message [facility] [address] [facility] Allergy/Immunology [address] [place] [address] Janae Ramsay, DO Itching 01/25/2025 myChart Message [facility] [address] [facility] Allergy/Immunology [address] [place] [address] Janae Ramsay, DO Prednisone from Last 3 Months Social History Tobacco Use Types Packs/Day Years Used Date Smoking Tobacco: Never Smokeless Tobacco: Never Tobacco Cessation:Counseling Given: Not Answered Alcohol Use Standard Drinks/Week Comments Not Currently 0 (1 standard drink = 0.6 oz pur e alcohol) Comments Unknown Sex and Gender Information Value Date Recorded Sex Assigned at Female 04/08/2024 7:45 PM EDT Legal Sex Female 4:08 PM EST Gender Identity Female 04/08/2024 7:45 PM EDT Sexual Orientation Straight 04/08/2024 7: 45 PM EDT Last Filed Vital Signs Vital Sign Reading Time Taken Comments Blood Pressure 118/72 10/26/2024 4:05 PM EST Pulse 117 10/26/2024 4:05 PM EST Temperature - - Respiratory Rate 22 04/13/2024 3:20 PM EDT Oxygen Saturation 95% 10/26/2024 4:05 PM EST Inhaled Oxygen Concentration - - Weight 121.1 kg (267 lb) 10/26/2024 4:05 PM EST Height - - Body Mass Index - - Plan of Treatment Upcoming Encounters Date Type Department Care Team (Late st Contact Info) Description 05/03/2025 4:00 PM EDT Office Visit [address] Allergy/Immunology [address] [place] [address] Janae Ramsay DO [address] [place] [address] Health Maintenance Due Date Last Done Comments Basic Metabolic Panel 1965 Cervical Cancer Screening 1965 Cologuard 1965 Colon Cancer Screening 1965 Colonoscopy 1965 FOBT / Fit Test 1965 HIV Screening 1965 HPV and Pap Smear 1965 Hepatitis C Screening 1965 Pap Smear 1965 Sigmoidoscopy 1965 Mammogram 2005 Zoster Vaccines (1 of 2) 2015 Pneumococcal Vaccine: 50+ Years (2 of 2 - PCV) 02/20/2019 02/20/2018 COVID-19 Vaccine ( season) 2024 09/10/2021, 02/05/2021, 01/15/2021 Alcohol/Substance Use Screening 09/15/2024 Depression Screening and Follow-Up 09/15/2024 Social Drivers of Health Annual Screening 09/15/2024 DTaP,Tdap,and Td Vaccines (2 - Td or Tdap) 12/27/2024 12/27/2014 RSV Vaccine (60+ years old and patients) (1 - Risk 60-74 years 1-dose series) 2025 Influenza Vaccine (#1) 2025 , 06/19/2020, 08/07/2019, Additional history exists Hepatitis B Vaccines Aged Out No long er eligible based on patient's age to complete this topic Insurance [facility] PPO/EPO Care Teams Agricultural Engineer Relationship Specialty Start Date End Date Abelardo Pro [address] [place] [address] [place] [id number] PCP - General Internal Medicine 09/30/23
--- OUTSIDE RECORDS SUMMARY | 2025-04-13 10:34 | XMS_ITS | Clinical Summary ---
Author Organization [facility] [address] [facility] Address [address] [place] [address] Phone Care Team Providers Care Intern Brand Name Role Phone Morteza Abelardo Benites MD Primary Care Provider Allergies Active Allergy Reactions Criticality Noted Date Comments Cephalexin 03/22/2021 Oxycodone-Acetaminophen 03/22/2021 Medications sodium hyaluronate, viscosup, (GELSYN-3) 16.8 mg/2 mL injection Inject 16.8 mg into the articular space Once. 1 Active sodium hyaluronate, viscosup, (GELSYN-3) 16.8 mg/2 mL injection 1 Active sodium hyaluronate, viscosup, (GELSYN-3) 16.8 mg/2 mL injection 1 Active lisinopriL (PRINIVIL,ZESTR IL) 5 mg tablet Take 5 mg by mouth daily. Active amlodipine besylate (AMLODIPINE ORAL) Take 10 mg by mouth daily. Active hydroCHLOROthia zide (MICROZIDE) 12.5 mg capsule Take 12.5 mg by mouth daily. Active estradioL (CLIMARA) 0.025 mg/[address] 1 Patch onto the skin once a week. Active triamcinolone (NASACORT) 55 mcg nasal inhaler Active acetylcysteine (MUCOMYST) 100 mg/mL (10 %) nebulizer solution Inhale 4 mL into the lungs every 4 hours. Active venlafaxine XR (EFFEXOR-XR) 75 mg 24 hr capsule Take 1 capsule (75 mg total) by mouth. 4 Active venlafaxine XR (EFFEXOR-XR) 150 mg 24 hr capsule Take 225 mg by mouth. 4 Active traZODone (DESYREL) 50 mg tablet Take 1 tablet (50 mg total) by mouth. 4 Active meloxicam (MOBIC) 7.5 mg tablet 4 Active amphetamine-dex troamphetamine XR (ADDERALL XR) 5 mg 24 hr capsule Take 1 capsule (5 mg total) by mouth 1 (one) time each day in the morning. Do not crush or chew. Active amphetamine-dex troamphetamine XR (ADDERALL XR) 30 mg 24 hr capsule Take 1 capsule (30 mg total) by mouth 1 (one) time each day in the morning. Do not crush or chew. Active levocetirizine (XYZAL) 5 mg tablet Take 1 tablet (5 mg total) by mouth. 4 Active esomeprazole (NexIUM) [address] capsule Take 1 capsule (40 mg total) by mouth. 4 Active levothyroxine (SYNTHROID, LEVOTHROID) 112 mcg tablet Take 1 tablet (112 mcg total) by mouth. 4 Active Active Problems Problem Noted Date Diagnosed Date Anxiety 10/29/2024 Depression 10/29/2024 Asthma 10/29/2024 Flatus 08/20/2024 Assessment & Plan (08/20/2024 9:29 AM EST): 59-year-old female complaining of excess gas whose risk factors include the use of CPAP, lactose intolerance, and a question of air aphasia. By history patient has reflux but no prior diagnosis of celiac disease which could result in symptoms as well. I did spend some time with the patient reviewing her status. I have provided her with a gas instructions sheet reviewing it in great detail. 1. Gas instruction sheet. Recommended trial of [id number] anti-gas medications such as simethicone. 2. Will obtain a celiac panel to rule out the possibility of celiac disease as a cause of her symptoms. 3. Continue antireflux medications. 4. Observe. Orders: Celiac disease comprehensive panel; Future Burping 08/20/2024 Assessment & Plan (08/20/2024 9:29 AM EST): As above. Orders: Celiac disease comprehensive panel; Future E-coli UTI 08/20/2024 Primary osteoarthritis of both knees 04/23/2021 Surgical History Surgery Date Site/Laterality Comments LUMBAR LAMINECTOMY PROCEDURE: HISTORICAL LUMB LAMINECTOMY; COMMENT: L5-S1 GASTROSCOPY 11/13/2022 - 12/13/2022 COLONOSCOPY 11/13/2020 - 12/13/2020 10 yr ESOPHAGOGASTRODUODENOSCOPY 11/13/2022 - 12/13/2022 nl with nl esoph bx CHOLECYSTECTOMY STOMACH SURGERY gastric sleeve JOINT REPLACEMENT Right TKR Medical History Medical History Date Comments Hypertension DX:Hypertension Arron's thyroiditis DX:Randall crys's thyroiditis Sleep apnea treated with con tinuous positive airway pressure (CPAP) Social History Tobacco Use Types Packs/Day Years Used Date Smoking Tobacco: Never Smokeless Tobacco: Never Alcohol Use Standard Drinks/Week Comments Never 0 (1 standard drink = 0.6 oz pur e alcohol) Comments Unknown Sex and Gender Information Value Date Recorded Sex Assigned at Not on file Legal Sex Female 4:09 PM EST Gender Identity Not on file Sexual Orientation Not on file Obstetrics History Last Filed Vital Signs Vital Sign Reading Time Taken Comments Blood Pressure - - Pulse - - Temperature - - Respiratory Rate - - Oxygen Saturation - - Inhaled Oxygen Concentration - - Weight 122 kg (269 lb) 10/29/2024 10:32 AM EST Height 154.9 cm (5' 1 ) 10/29/2024 10:32 AM EST Body Mass Index 50.83 10/29/2024 10:32 AM EST Plan of Treatment Health Maintenance Due Date Last Done Comments Breast Cancer Screening 1965 Cervical Cancer Screening: Pap Smear 1986 Zoster Vaccines (1 of 2) 2015 Pneumococcal Vaccine: 50+ Years (2 of 2 - PCV) 02/20/2019 02/20/2018 COVID-19 Vaccine ( - season) 2024 09/10/2021, 02/05/2021, 01/15/2021 Cholesterol Screening (Lipid Panel) 08/09/2024 HIV Screening 08/09/2024 Hepatitis C Screening 08/09/2024 Social Influencers of Health Screening 08/09/2024 Hypertension/CHF/CAD Annual BMP Blood Test 08/20/2024 Depression Screening 09/15/2024 DTaP,Tdap,and Td Vaccines (2 - Td or Tdap) 12/27/2024 12/27/2014 RSV Immunization Adult Patients (1 - Risk 60-74 years 1-dose series) 2025 Influenza Vaccine (#1) 2025 , 06/19/2020, 06/19/2020, Additional history exists Colorectal Cancer Screening: Colonoscopy 08/20/2034 08/20/2024 HIB Vaccines Aged Out No longer eligi ble based on patient's age to complete this topic HPV Vaccines Aged Out No longer eligi ble based on patient's age to complete this topic Hepatitis A Vaccines Aged Out No long er eligible based on patient's age to complete this topic Hepatitis B Vaccines Aged Out No long er eligible based on patient's age to complete this topic IPV Vaccines Aged Out No longer eligi ble based on patient's age to complete this topic MMR Vaccines Aged Out No longer eligi ble based on patient's age to complete this topic Meningococcal ACWY Vaccine Aged Out N o longer eligible based on patient's age to complete this topic Meningococcal B Vaccine Aged Out No l onger eligible based on patient's age to complete this topic RSV Immunization Patients Under 20 months Aged Out No longer eligible based on patient's age to complete this topic Varicella Vaccines Aged Out No longer eligible based on patient's age to complete this topic Procedures Procedure Name Priority Date/Time Associated Diagnosis Comments COLONOSCOPY Routine 08/20/2024 11:42 AM EST from Last 3 Months or Most Recently Relevant to Health Maintenance Results * COLONOSCOPY (08/20/2024 11:42 AM EST) Anatomical Region Laterality Modality Endoscopy us Historical Provider GI~PROCEDURE ORDERABLES F inal Result from Last 3 Months or Most Recently Relevant to Health Maintenance Insurance [employer] [facility] (PRE[place]) [facility] ([facility]) Care Teams Intern Brand Relationship Specialty Start Date End Date Abelardo Pro MD [address] [place] [id number] PCP - General Internal Medicine 03/05/21
--- OUTSIDE RECORDS SUMMARY | 2025-04-13 10:34 | XMS_ITS ---
Author Name Zahra Villalba Address Unknown Organization [facility] Care Team Providers Care Still Operator Helper Name Role Phone Unavailable Primary Care Physician Unavailab le History Of Present Illness This is a 60 year old female who is a new patient who is being seen for a chief complaint of rash. Location: arms, legs, neck, and trunkRash Type: bumpy, itchy, and redSeverity: mildDuration: weeksAdditional History: Patient presents for rash throughout body that started March 23. Pt states she???stried multiple OTC creams but ice packs help the most. Pt does not recall anything different happening when this rash started except working in the yard. Allergies, Adverse Reactions, Alerts Substance RxNorm Reaction(s) Severity Status Start Da te Keflex 083768 unspecified active Percocet 61841 unspecified active Medications Medication Generic Name RxNorm Strength Strength Unit Route Dose Dose Form Frequency Date Started Date Ended Status Indication Sig clobetasol cl[place]etas ol 394812 0.05 % Topica l cream 04/12/20 25 active Appl y to affe cted arm twic e jocelynn y for 4 week s to arms , ches t, and back . dextroamphe tamine-amph etamine 079638 30 mg Oral 1 Capsu le, Exten ded Relea se 24 hr QD active esomeprazol e magnesium 193860 40 mg Oral 1 capsu le,de layed relea se (ente lela coate d) QD active estradiol 958497 1 mg Oral 1 table t QD active hydrochloro thiazide 146293 25 mg Oral 1 table t QD active levothyroxi ne 410672 112 mcg Oral 1 table t QD active trazodone 592011 50 mg Oral 1 table t qHS active venlafaxine 543042 150 mg Oral 1 Caps u le, Exten ded Relea se 24 hr QD active BusPIRone HCl NULL 05/08/20 18 suspend ed Cyclobenzap rine HCl NULL 0 18 active Ketorolac Tromethamin e NULL 05/08/20 18 active Lisinopril NULL 05/08/20 18 active Triamcinolo ne Acetonide NULL 18 suspend ed Problems Problem Code Type Status Date of Diagnosis Da te of Resolution Inflammatory dermatosis (disorder) 575575280(SN OMED) Diagnosis active 04/12/2025 Inflamed seborrheic keratosis (disorder) 129530519(SN OMED) Diagnosis active 04/12/2025 Other specified health status Z78.9(ICD-10 ) Diagnosis active 05/08/2018 Encounter for immunization Z23(ICD-10) Diagnosis active 05/08/2018 Anxiety disorder (disorder) 407685731(SN OMED) Problem active Arthritis (disorder) 6582280(SNOM ED) Problem active Asthma (disorder) 203748020(SN OMED) Problem active Disease caused by severe acute respiratory syndrome coronavirus 2 (disorder) 429591996(SN OMED) Problem active Depressive disorder (disorder) 99300436(SNO MED) Problem active Increased blood pressure (finding) 22971628(SNO MED) Problem active History of hypertension (situation) 824552967(SN OMED) Problem active Results No data Encounters Service provided at [facility], [address] [place] [address], [address], [place], [place] [id number]. Office phonenumber is [phone]. Office fax number is [phone]. Encounter Diagnosis Location Date / Time Type Dermatitis Unspecified (L30. 9)Irritated Seborrheic Keratosis (L82.0) [facility] 04/12/2025 19:00:00 [facility] [id number] Reason For Referral No data Procedures Procedure Date Documentation of past medical history (p rocedure) Total replacement of right knee joint (p rocedure) History of colectomy (situation) History of colectomy (situation) Documentation of past medica l history (procedure) Partial thyroidectomy, sleeve gastrectomy, herniated disc Total replacement of right knee joint (p rocedure) 2022 Review Of Systems Provider reviewed on Apr 12, 2025.A complete review of systems was performed and was notable for hay fever, thyroid problems, anxiety, and depression.No Problems With Healing, No Problems With Scarring (hypertrophic Or Keloid), No Problems With Bleeding, No Immunosuppression, No Chest Pain, No Fever Or Chills, No Night Sweats, No Unintentional Weight Loss, No Sore Throat, No Blurry Vision, No Abdo conrad Pain, No Bloody Stool, No Bloody Urine, No Joint Aches, No Muscle Weakness, No Neck Stiffness, No Headaches, No Seizures, No Shortness Of Breath, And No Wheezing. Assessment 1.Dermatitis UnspecifiedCounselingPrescription: clobetasol 0.05 % topical cream TPPrescription Medication Management: Plan - :Patient showed a photo today of significant periorbital and facial edema.Questionably related to poisoned sumac per pt and she completed a 15 days course of prednisone taperand topical steroid from ophthalmologists.Lower lumbar spine ?related to pressure from clothing caus ing itching rather than rash on arms and chest. Rx today:1. Clobetasol 0.05% topical cream x BID for 4 weeks to chest, back and arms.FU in 4 weeks for reassessment.;.2.Irritated Seborrheic KeratosisCounseling Plan of Care Future visit for 05/10/2025 - Follow up in 4 weeks for: Eczema - 15 minutes Code Detail Instructions 455554 clobetasol 0.05 % topical cream Apply to affected arm twice daily for 4 weeks to arms, chest, and back. Instructions * I counseled the patient regarding the following:Skin care: Patient should bathe using lukewarm water with a mild cleanser and moisturize immediately after. Emollients should be applied at least 2-3 times daily. Avoid scented detergents or fabric softeners. Keep fingernails short. Avoid excessive hand washing.Expectations: The patient is aware that eczema is chronic in nature and can improve with moisturizers and topical steroids and worsen with stress, scented soaps, detergents, scratching, dryskin, changes in weather and skin infections.Contact office if: Eczema worsens or fails to improve despite several weeks of treatment; patient develops skin infections (such as: yellow honey colored crusts or cold sores).I recommended the following: CleansersMoisturizersThe following medication counseling was provided:I discussed with the patient that prolonged use of topical steroids can result i n the increased appearance of superficial blood vessels (telangiectasias), lightening (hypopigmentation) and thinning of the skin (atrophy). Patient understands to avoid using high potency steroids in skin folds, the groin or the face. The patient verbalized understanding of the proper use and possible adverse effects of topical steroids. All of the patient's questions and concerns were addressed. * I counseled the patient regarding the following:Skin Care: Irritated Seborrheic Keratoses can be removed with cryotherapy.Expectations: Irritated Seborrheic Keratoses are benign growths that become inflamed, itchy, tender, traumatized, caught on clothing, or exhibit bleeding or crusting. Because the are symptomatic, they can be treated with cryotherapy.Contact Office if: If Irritated Seborrheic Keratosis fails to resolve despite treatment, or if you develop a side effect from therapy, such as unbearable crusting, scabbing, redness and tenderness. Social History Code Activity Start Date End Date [id number] (SNOMED) Never smoker Sex female Sexual orientation Don't Know Gender identity Unspecified Vital Signs No data
== END 2025-04-13 11:18 | disposition home or self-care (01) ==
LOC: HO.HOS 09:53
PROVIDERS: PCP Internal Medicine; Visit Provider Physician Assistant
DX: S92.352A Displaced fracture of fifth metatarsal bone, left foot, initial encounter for closed fracture (principal); S63.602A Unspecified sprain of left thumb, initial encounter
CPT/HCPCS: 99213

== ENCOUNTER → 2025-04-13 09:57 | Outpatient (BNV) | payer BC, SELFPAY | PROVIDERS: Visit Provider Radiology Diagnostic Radiology | DX: M79.642 Pain in left hand (principal); S92.352A Displaced fracture of fifth metatarsal bone, left foot, initial encounter for closed fracture | CPT/HCPCS: 73130; 73630 ==

== ENCOUNTER 2025-04-13 10:32 | Outpatient (REF) | payer BC, SELFPAY ==
--- NOTE | ~2025-04-13 | XR_ITS ---
EXAMINATION: XR FOOT 3 OR MORE VIEWS LEFT HISTORY: M79.672 - Pain in left foot COMPARISON: Correlation is made with plain films of the left ankle dated 03/25/2024. FINDINGS: Three views of the left foot are submitted. Osseous mineralization is normal. There is a minimally displaced intra-articular fracture of the base of the 5th metatarsal. No additional fracture is seen. There is no dislocation The joint spaces are preserved. The soft tissues are unremarkable. XR/XR foot LT min 3V IMPRESSION: Minimally displaced intra-articular fracture of the base of the 5th metatarsal. Electronically signed by: Wayne Kincaid MD 04/13/2025 10:25 AM EDT
--- NOTE | ~2025-04-13 | XR_ITS ---
EXAMINATION: XR HAND, LEFT CLINICAL INFORMATION: M79.642 - Pain in left hand COMPARISON: None available. TECHNIQUE: PA, lateral, and oblique views of the left hand. FINDINGS: There is minimal negative ulnar variance . There are no changes in the remaining density. There are no degenerative changes. Erosions are evident. There is no joint space narrowing or sclerosis. No fractures are seen. XR/XR hand LT min 3V IMPRESSION: Unremarkable left hand Electronically signed by: Nilo Haider MD 04/13/2025 10:53 AM EDT
== END 2025-04-13 10:33 | disposition home or self-care (01) ==
LOC: HO.HOSX 10:32
PROVIDERS: Visit Provider Physician Assistant
DX: S92.352A Displaced fracture of fifth metatarsal bone, left foot, initial encounter for closed fracture (principal); S63.602A Unspecified sprain of left thumb, initial encounter; M79.642 Pain in left hand; M79.672 Pain in left foot; R20.0 Anesthesia of skin; R20.2 Paresthesia of skin; W01.0XXA Fall on same level from slipping, tripping and stumbling without subsequent striking against object, initial encounter
CPT/HCPCS: 73130; 73630

== ENCOUNTER 2025-05-25 08:47 | Outpatient (AMB) | payer BC, SELFPAY ==
--- NOTE | 2025-05-25 08:53 | MHC.OFFVIS ---
Vital Signs 05/25/25 09:03 Height 5 ft Weight 241 lb BMI 47.1 Intake Visit Reasons: OV- LT 5th metatarsal fx, DOI 04/03/25 Intake Note: Essie is a 60 year old female who presents today for a follow up of 5th metatarsal fracture, DOI 04/03/25. At her last visit she was instructed to continue use of walking boot, and follow up in 6 weeks with x-rays. Patient reports that she is unable to place her foot fully flat on the floor. She complains of an ache after doing errands, such as grocery store or doctor appointments. Her discomfort is now radiating to the top of her foot for the past couple of weeks. She continues to have swelling, finds relief with icing. States that she wear velcro wrist brace at night. Her pain is radiating from her wrist to her thumb, IF, and MF. 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 Allergies cephalexin (From Keflex) Allergy (Intermediate, Verified 05/25/25 09:02) Gastrointestinal Upset [place] And Derivatives Allergy (Intermediate, Verified 05/25/25 09:02) Shortness of Breath nut - unspecified Allergy (Intermediate, Verified 05/25/25 09:02) Swelling oxycodone (From Percocet) Allergy (Intermediate, Verified 05/25/25 09:02) Nausea and Vomiting codeine Allergy (Verified 05/25/25 09:02) Hives Medication List - Last Reconciled 05/25/25 by Christa Kern PA-C acetaminophen 650 mg (2 x 325 mg) PO Q6H PRN 30 days dextroamphetamine-amphetamine 20 mg (Adderall) 20 mg PO DAILY esomeprazole magnesium 40 mg PO DAILY estradiol 0.5 mg PO DAILY hydrochlorothiazide 1 cap PO DAILY levothyroxine 1 tab PO DAILY lisinopril 20 mg PO DAILY trazodone 50 mg PO BEDTIME venlafaxine ER 150 mg PO DAILY HPI HPI OV- LT 5th metatarsal fx, DOI 04/03/25: Details: 60-year-old female returns to the office today for a follow-up left 5th metatarsal fracture date of injury 03/2025. She continues to weightbear as tolerated with the boot but states she is not walking that often due to the discomfort. 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 She does wear her brace at night but notices some continued discomfort. [facility] Medical History ADHD Asthma Hypothyroidism GERD (gastroesophageal reflux disease) Morbid obesity Paradoxical vocal cord motion Environmental allergies Personal history of COVID-19 History of blood transfusion CASANDRA on CPAP Insomnia Depression Anxiety Osteoarthritis of right knee Arron's disease Hypertension Surgical History History of sleeve gastrectomy Hx of tonsillectomy History of History of bilateral cataract extraction History of laryngoscopy Hx of colonoscopy History of hysterectomy, supracervical History of back surgery History of cholecystectomy H/O partial thyroidectomy H/O Spinal surgery Social History Household Members: Spouse Housing: House Are you a primary reservoir caretaker to a significant other at home: No Do you presently have visiting nurse or other home services: No Alcohol intake: never Comment: wears a knee brace, aware of trip hazard Patient Tobacco Use Status: Never used Tobacco service: No Current occupational status: employed Current occupation: disability claims Review of Systems Const All systems reviewed & are unremarkable except as noted in HPI and below Physical Exam Vital Signs: BMI result Body Mass Index 47.1 Const General: cooperative and no acute distress Orientation/consciousness: patient oriented x3 Resp Effort & Inspection: normal respiratory effort and able to speak in complete sentences Cardio Peripheral pulses: Peripheral pulses 2+ throughout Neuro General: patient oriented x3 Extrem Other: Left foot skin intact. There is tenderness at the base of the 5th metatarsal. Sensation intact. EHL intact. No pain along the mediolateral malleolus. Neurovascularly intact. Left wrist is normal to inspection no swelling. She does have tenderness at the base of the thumb into the wrist joint. No DRUJ instability. Results Reviewed Results Reviewed: X-rays of the left foot obtained in the office today and reviewed by me do show a stable healing fracture through the base of the 5th metatarsal. X-rays of the left wrist with scaphoid view obtained in the office today and reviewed by me are negative for any acute or chronic abnormalities. Assessment & Plan Assessment & Plan (1) Fracture of fifth metatarsal bone of left foot: Code(s): S92.352A - Displaced fracture of fifth metatarsal bone, left foot, initial encounter for closed fracture Category: Medical (2) Left thumb sprain: Code(s): S63.602A - Unspecified sprain of left thumb, initial encounter Category: Medical Plan: As for the left wrist and thumb she will continue with the brace as needed. I did give her a prescription for naproxen twice a day to take for 2 weeks to help with inflammation. I did offer her some occupational therapy but she states she is doing some home exercises. She will follow up as needed for the left wrist and thumb. Plan She will continue with the boot wbat but did recommend she decrease her weight-bearing if there is increased pain. She does have crutches but states she is not to steady on them. She also has a kneeling scooter that she occasionally uses but it is difficult with decreased strength in her left hand. I would like to see her back in 6 weeks for another x-ray of the left foot. Orders: Orders XR foot LT min 3V Today M79.672 - Pain in left foot XR wrist LT w scaphoid Today M25.532 - Pain in left wrist Medications: New naproxen 500 mg PO BID 60 tabs 3RF 30 days Coding Level of Care Code Global (04877) Diagnoses Fracture of fifth metatarsal bone of left foot S92.352A Left thumb sprain S63.602A
[2025-05-25 09:03] VITALS: BMI 47.1
--- OUTSIDE RECORDS SUMMARY | 2025-05-25 10:15 | XMS_ITS | Clinical Summary ---
Author Organization [facility] Address [address] [place] [address] Care Team Providers Care Ocularist Name Role Phone Abelardo Pro Primary Care Provider [phone] Allergies Active Allergy Reactions Criticality Noted Date Comments Codeine Unknown 10/14/2023 Cephalexin Vomiting 10/14/2023 Peanut Unknown 10/14/2023 Oxycodone-Acetaminophen Nausea 10/14/2023 Tree Nut Unknown 10/14/2023 Medications hydroCHLOROthiazid e (HYDRODIURIL) 12.5 mg tablet Take 12.5 mg by mouth once a day. Active LISINOPRIL ORAL Take 40 mg by mouth. Active venlafaxine HCl (VENLAFAXINE ORAL) Take by mouth. Total is 225mg Active levothyroxine sodium (LEVOTHYROXINE, BULK, MISC) 112 mcg. Active traZODone (DESYREL) 25 mg tablet Take [...] by mouth every morning before breakfast. Active levalbuterol (Xopenex HFA) 45 mcg/actuation inhaler Inhale 1-2 puffs by mouth every 6 hours as needed for wheezing or shortness of breath. Active levalbuterol (XOPENEX HFA) 45 mcg/actuation inhalerIndications :Moderate persistent asthma without complication (HCC) Inhale 1-2 puffs by mouth every 6 hours as needed for wheezing. 15 g 1 025 Active cetirizine (ZyrTEC) 10 mg tablet Take 10 mg by mouth once a day. Active amphetamine-dextro amphetamine XR (ADDERALL XR) 30 mg capsule Take 30 mg by mouth every morning. Active estradioL (CLIMARA) 0.05 mg/[address] 1 patch on the skin once a week. Active ipratropium (ATROVENT) 0.03% nasal sprayIndications:S easonal allergic rhinitis due to pollen Administer 2 sprays into each nostril 3 times a day. 30 mL 5 025 Active triamcinolone (Nasacort Allergy) 55 mcg nasal inhaler Administer 2 sprays into each nostril once a day. 2024 Discontinued levocetirizine dihydrochloride (LEVOCETIRIZINE ORAL) Take 5 mg by mouth. 2024 Discontinued azelastine (ASTELIN) 137 mcg (0.1 %) nasal spray Administer 1 spray into each nostril 2 times a day. 30 mL 5 025 2024 Discontinued Active Problems Problem Noted Date Diagnosed Date Adverse reaction to food, subsequent encounter 0 10/14/2023 Encounters Date Type Department Care Team Description 05/03/2025 4:00 PM EDT Office Visit [facility] [address] Allergy/Immunology [address] [place] [phone] Janae Ramsay DO Moderate persistent asthma without complication (HCC) (Primary Dx); Other cough; Allergic conjunctivitis of both eyes; Seasonal allergic rhinitis due to pollen 03/23/2025 myChart Message [facility] [address] Allergy/Immunology [address] [place] [phone] Janae Ramsay DO Swollen and itchy from Last 3 Months Social History Tobacco [...] Sign Reading Time Taken Comments Blood Pressure 136/76 05/03/2025 4:05 PM EDT Pulse 116 05/03/2025 4:05 PM EDT Temperature - - Respiratory Rate 22 04/13/2024 3:20 PM EDT Oxygen Saturation 97% 05/03/2025 4:05 PM EDT Inhaled Oxygen Concentration - - Weight 122.9 kg (271 lb) 05/03/2025 4:05 PM EDT Height - - Body Mass Index - - Plan of Treatment Upcoming Encounters Date Type Department Care Team (Late st Contact Info) Description 11/07/2025 10:00 AM EST Office Visit [facility] [address] [facility] Allergy/Immunology [address] [place] [address] Janae Ramsay, DO [address] [place] [address] Health Maintenance Due Date Last Done Comments Cervical Cancer Screening 1965 Cologuard 1965 Colon Cancer Screening 1965 Colonoscopy 1965 FOBT / Fit Test 1965 HIV Screening 1965 HPV and Pap Smear 1965 Hepatitis C Screening 1965 Pap Smear 1965 Sigmoidoscopy 1965 Zoster Vaccines (1 of 2) 2015 Pneumococcal Vaccine: 50+ Years (2 of 2 - PCV) 02/20/2019 02/20/2018 Alcohol/Substance Use Screening 09/15/2024 Depression Screening and Follow-Up 09/15/2024 Social Drivers of Health Annual Screening 09/15/2024 RSV Vaccine (60+ years old and patients) (1 - Risk 60-74 years 1-dose series) 2025 COVID-19 Vaccine (4 - 2024- season) 2025 09/10/2021, 02/05/2021, 01/15/2021 Influenza Vaccine (#1) 2025 , 06/19/2020, 08/07/2019, Additional history exists Mammogram 10/29/2026 10/29/2024 DTaP,Tdap,and Td Vaccines (3 - Td or Tdap) 12/25/2034 12/25/2024, 12/27/2014 Hepatitis B Vaccines Aged Out No long er eligible based on patient's age to complete this topic Insurance [facility] PPO/EPO Care Teams Ocularist Relationship Specialty Start Date End Date MortezaTatyjamari Benites [address] [place] [id number] PCP - General Internal Medicine 09/30/23
--- OUTSIDE RECORDS SUMMARY | 2025-05-25 10:16 | XMS_ITS | Clinical Summary ---
Author Organization [facility] [address] [facility] Address [address] [place] [address] Phone Care Team Providers Care Adult Remedial Education Instructor Name Role Phone Abelardo Pro MD Primary Care Provider [phone] Allergies Active Allergy Reactions Criticality Noted Date [...] 1. Gas instruction sheet. Recommended trial of [id number] anti-gas medications such as simethicone. 2. Will [...] (2 of 2 - PCV) 02/20/2019 02/20/2018 Cholesterol Screening (Lipid Panel) 08/09/2024 HIV Screening [...] 01/15/2021 Influenza Vaccine (#1) 2025 , 06/19/2020, 06/19/2020, [...] Most Recently Relevant to Health Maintenance Insurance [employer] [place] ([employer]) [facility] ([employer]) Care Teams Adult Remedial Education Instructor Relationship Specialty Start Date End Date Abelardo Pro MD [address] [place] [phone] PCP - General Internal Medicine 03/05/21
== END 2025-05-25 09:39 | disposition home or self-care (01) ==
LOC: HO.HOS 08:48
PROVIDERS: Visit Provider Physician Assistant
DX: S92.352A Displaced fracture of fifth metatarsal bone, left foot, initial encounter for closed fracture (principal); S63.602A Unspecified sprain of left thumb, initial encounter
CPT/HCPCS: 99213

== ENCOUNTER → 2025-05-25 08:48 | Outpatient (BNV) | payer BC, SELFPAY | PROVIDERS: Visit Provider Radiology Diagnostic Radiology | DX: M25.532 Pain in left wrist (principal); M79.672 Pain in left foot | CPT/HCPCS: 73110; 73630 ==

== ENCOUNTER 2025-05-25 09:12 | Outpatient (REF) | payer BC, SELFPAY ==
--- NOTE | ~2025-05-25 | XR_ITS ---
EXAMINATION: XR WRIST NAVICULAR LEFT HISTORY: M25.532 - Pain in left wrist COMPARISON: Comparison is made with the prior examination of the left hand dated 04/13/2025. FINDINGS: Four views of the left wrist including a scaphoid view are submitted. Osseous mineralization is normal. There is no fracture or dislocation. The joint spaces are preserved. The soft tissues are unremarkable. XR/XR wrist LT w scaphoid IMPRESSION: Unremarkable examination of the left wrist. Electronically signed by: Wayne Kincaid MD 05/25/2025 10:07 AM EDT
--- NOTE | ~2025-05-25 | XR_ITS ---
EXAMINATION: XR FOOT 3 OR MORE VIEWS LEFT HISTORY: M79.672 - Pain in left foot COMPARISON: Comparison is made with the prior examination dated 04/13/2025. FINDINGS: Three views of the left foot are submitted. Osseous mineralization is normal. Again seen is a mildly displaced fracture of the base of the 5th metatarsal. There has been blurring of the fracture margins consistent with healing. The joint spaces are preserved. The soft tissues are unremarkable. XR/XR foot LT min 3V IMPRESSION: Healing mildly displaced fracture of the base of the 5th metatarsal. Electronically signed by: Wayne Kincaid MD 05/25/2025 09:03 AM EDT
== END 2025-05-25 09:13 | disposition home or self-care (01) ==
LOC: HO.HOSX 09:12
PROVIDERS: Visit Provider Physician Assistant
DX: S92.352D Displaced fracture of fifth metatarsal bone, left foot, subsequent encounter for fracture with routine healing (principal); S63.502D Unspecified sprain of left wrist, subsequent encounter; X58.XXXD Exposure to other specified factors, subsequent encounter
CPT/HCPCS: 73110; 73630